=== PATIENT | male | born 1950 | race Caucasian/White ===

== ENCOUNTER → 2019-11-03 11:38 | Outpatient (BNVA) | payer MEDICARE, MEDICAID, SELFPAY | PROVIDERS: Family Provider Urology; PCP Nurse Practitioner Family; Referring Provider Nurse Practitioner Family; Visit Provider Nurse Practitioner Family | DX: R31.0 Gross hematuria (principal); R97.20 Elevated prostate specific antigen [PSA]; N40.1 Benign prostatic hyperplasia with lower urinary tract symptoms; N13.8 Other obstructive and reflux uropathy | CPT/HCPCS: 80053; 81001; 84153 ==

== ENCOUNTER 2019-11-09 08:56 | Outpatient (CLI) | payer MEDICARE, MEDICAID, SELFPAY ==
--- NOTE | 2019-11-09 | CT_ITS ---
WS: [id number] CT ABDOMEN AND PELVIS WITH AND WITHOUT CONTRAST HISTORY: GROSS HEMATURIA TECHNIQUE: Unenhanced 5 mm axial imaging first performed through the abdomen. Post contrast imaging t hrough the abdomen and pelvis. Oral contrast has been provided. Sagittal and coronal reformats are s ubmitted. All CT scans at [facility] use at least one of these dose optimization techniqu es: automated exposure control; mA and/or kV adjustment per patient size (includes targeted exams whe re dose is matched to clinical indication); or iterative reconstruction. CONTRAST: Omnipaque 300; 95 mL IV. DLP: 3573.58 mGy.cm COMPARISON: None available. Lung bases are clear. Heart size is normal. No significant hiatal hernia. Normal liver with no intrahepatic dilatation. Normal portal vein. Gallbladder has been removed. Magdalena l size spleen. Normal pancreas. No adrenal mass. Very mild atherosclerosis aorta with no aneurysm. RIGHT kidney: Normal size RIGHT kidney. No renal calcification or mass. RIGHT ureter is normal calibe r. LEFT kidney: Normal size kidney. Simple upper pole cyst measures 2.9 x 2.7 x 3.7 cm. Vascular calcifi cation noted in the central pelvis. No obstruction or perinephric stranding. LEFT ureter is normal. Urinary bladder: Well-distended urinary bladder. There is a mildly hypervascular lobulated mass in th e posterior superior bladder. Mass measures 4.4 x 3.0 x 3.4 cm. Hyperemic mass is just superior to th e RIGHT UV junction. No free fluid or adenopathy. No GI tract obstruction. The appendix is normal. No adenopathy in the pe lvis. Prostate gland is minimally prominent. No adenopathy. Straightening of the normal lumbar lordosis. Moderate degenerative disc disease at L5-S1. CT/CT abdomen pelvis wo/w [id number] IMPRESSION: 1. Urinary bladder mass measures 4.4 x 3.0 x 3.4 cm. 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 Recommend biopsy. 2. No renal stone or obstruction. 3. Prior cholecystectomy. 4. Mild atherosclerosis aorta.
[2019-11-09 10:46] LABS: Blood Urea Nitrogen 12 mg/dL (8-23)
[2019-11-09] MEDS: iohexol 300 mg/mL 100 mL Btl IV (11:03)
== END 2019-11-09 08:57 | disposition home or self-care (01) ==
LOC: RADWPI 09:02
PROVIDERS: Family Provider Urology; PCP Nurse Practitioner Family; Visit Provider Nurse Practitioner Family
DX: R31.0 Gross hematuria (principal); N40.1 Benign prostatic hyperplasia with lower urinary tract symptoms; I70.0 Atherosclerosis of aorta
CPT/HCPCS: 36415; 74178; 82565; 84520

== ENCOUNTER 2019-11-15 08:56 | Observation (INO) | payer MEDICARE, MEDICAID, SELFPAY ==
[2019-11-14 09:50] VITALS: BMI 28.5
[2019-11-15] VITALS (14 sets, daily range): BP systolic 108–159; BP diastolic 65–86; PULSE 53–96; RESP 12–18; TEMP 35.5–36.8; O2SAT 94–99
[2019-11-15] MEDS: sodium chloride 0.9% 1,000 ML 30 ML IV (06:37)
--- NOTE | 2019-11-15 06:40 | ANES.PREANE2 ---
Pre-Anesthetic Assessment Pre-Anesthetic Assessment: Height/Weight: Height 1.83 m Weight 95.254 kg Temp Pulse Resp BP Pulse Ox 97.3 F L 55 L 18 159/82 99 11/15/19 06:11 11/15/19 06:11 11/15/19 06:11 11/15/19 06:11 11/15/19 06:11 Preop Diagnosis: Newly diagnosed bladder cancer Proposed Procedure: Operation Date: 11/15/19 07:00 Proposed Procedures p Transurethral Resection Bladder Tumor 21075 C67.2(Not Applicable) - Kenji Yanez MD s Cystoscopy(Not Applicable) - Kenji Yanez MD Familial anesthetic complications: None Was Beta Yunior taken within 24 hours: N/A Last intake: Intake Last Liquid Date 11/14/19 Last Liquid Time 19:00 Last Solid Date 11/14/19 Last Solid Time 19:00 Social: Social History: Alcohol Packs per day: 1-2 beers daily Comment: former smoker Exam: Pre-Anes Outpt Exam: alert, oriented x 3, clear to auscultation bilaterally and regular rate & rhythm Airway: Cervical ROM: WNL MP: 3 Dentition: False Pulmonary: Pulmonary: None reported CV/HEM: CV/HEM: None reported : : None reported Hepatic: Hepatic: None reported GI: GI: GERD Metabolic: Metabolic: Hyperlipidemia Musc/skel: Musc/skel: Lower Back Pain Neuropsych: Neuropsych: Neuropathy (Legs (sciatica)) Anesthetic Plan: ASA status: 2 Anesthesia: General Risk of > 500 ml blood loss (7ml/kg in children): No Meds/Allergies Current Medications: Current Medications Generic Name Dose Route Start Last Admin Trade Name Freq PRN Reason Stop Dose Admin Sodium Chloride 1,000 mls @ 30 ml s/hr 11/15/19 06:15 11/15/19 06:37 Sodium Chloride 0.9% IV 11/16/19 06:14 30 mls/hr .Q24H RUBEN Administration PFSH Anesthesia PFSH: Social History Smoking and tobacco status: light tobacco smoker smokeless tobacco Alcohol intake: current Alcohol intake frequency: holidays/special occasions only Adopted: No Caregiver/support person: No Lives independently: No Marital status: Current occupational status: retired History of recent travel: No Current gender identity: Male Data Anesthesia Cardiac Studies: No Data to Display
[2019-11-15] MEDS: levofloxacin-dextrose 5 % 500 MG/100 ML PREMIX 100 MG IV (06:59)
--- NOTE | 2019-11-15 07:00 | W.PM.OPSUD ---
Surgery/Procedure H&P Update DATE OF PROCEDURE: November 15, 2019 DATE H&P PERFORMED: 11/09/19 H&P UPDATE INFORMATION: I have reviewed H&P completed within last 30 days, I have examined patient prior to procedure and No changes to prior documentation PREOP DIAGNOSIS: Newly diagnosed bladder cancer PLANNED PROCEDURE: Operation Date: 11/15/19 07:00 Proposed Procedures p Transurethral Resection Bladder Tumor 08644 C67.2(Not Applicable) - Kenji Yanez MD s Cystoscopy(Not Applicable) - Kenji Yanez MD
--- NOTE | 2019-11-15 07:01 | P.OP_ITS ---
Operative Report Date of procedure: November 15, 2019 Pre-op Diagnosis: Newly diagnosed bladder cancer Post-op diagnosis: same Procedure Done: Cystoscopy, transurethral section of bladder tumor large Pathology: Bladder tumor Surgeon: Beau Anesthesia: General Estimated blood loss: Minimal Urine output: Not measured Complications: Small false passage with Sofía sound passage. Bypassed with guidewire and scopes. Able to get a catheter and no difficulty afterwards. Expect complete resolution with indwelling catheter. Findings: Papillary lesion in expected position. Completely resected. Disposition: PACU Brief History: Mr. Martins is a very pleasant 68-year-old white male recently evaluated for gross hematuria with normal upper urinary tracts on CT scan and a papillary lesion in the bladder consistent with TCCA located on the right posterior lateral wall. Admitted now for TURBT. Preliminary assessment of the tumor appeared well differentiated and probably not invasive. Procedure: After routine preoperative evaluation examination and obtaining of informed consent he was taken to the operating suite on 11/15/2019 where general anesthesia was administered without difficulty after appropriate timeout was performed, SCDs confirmed to be functioning, preoperative antibiotics administered, beta-liz protocol confirmed. Prepped and draped in usual sterile fashion in dorsolithotomy position pain careful attention to avoiding pressure points. 21 Mozambican cystoscope with 30 degree lens was introduced into the urethra meatus and advanced into the bladder under videoscopy. The membranous urethra was slightly tight. Bladder was systematically examined with 30 and 70 degree lenses with findings as mentioned above and identified in clinic. Urethra was then attempted to be calibrated with Sofía sounds but the 22 Mozambican sound would not easily pass. The urethra was reinspected there was a small false passage in the bulbar urethra and and it was decided to forego further formal dilation and pass a wire over which the scopes could be used to dilate. The ureteroscope was used to follow the true lumen into the bladder a guidewire was placed and then sequentially 17, 22 and 25 Mozambican scopes were utilized for the equivalent dilation over the wire. A open ureteral catheter was advanced over the guidewire and then the 25 Mozambican continuous flow resectoscope sheath with visual obturator in place was the advanced next to the guidewire into the bladder. The gyrus bipolar system with super loop was utilized first for resection of the tumor down to the base and deep sampling was conducted as well. While the tumor was wide-based it did appear to be well differentiated papillary characteristic and not invasive. Button probe was utilized for fulguration of the base and meticulous hemostasis was obtained. The orifices which were identified well away from the base of the tumor at initial inspection were confirmed to be without involvement in the resected site. All chips were confirmed to be out of the bladder after removal with that he like evacuator and final inspection revealed meticulous hemostasis and no additional tumor sites. Prior to removal of the resectoscope a guidewire was passed through the sheath into the bladder and then a 22 Mozambican three-way Bentley catheter converted to a catawba tip catheter was passed over the guidewire easily into the bladder and the balloon inflated catheter confirmed to be functioning and then the wire removed. He was maintained on low-flow CBI with clear reflux. Tolerated procedure well without complications and was awakened in the operating room and returned to the operating room in stable condition. PLANS: Anticipate overnight stay with discharge tomorrow after intravesical mitomycin instillation and successful voiding trial.
[2019-11-15] MEDS: lidocaine 2% Urojet 20 mL TOPICAL (07:20)
--- NOTE | 2019-11-15 08:56 | SUR.PHASEI ---
0850 PATIENT TO PACU AT THIS TIME FROM OR. RR EVEN AND UNLABORED. AWAKE AND TALKING. [address] IN [address] WITH CBI. DENIES PAIN.
--- NOTE | 2019-11-15 09:22 | SUR.PHASEI ---
0912 PATIENT TO MED SURG AT THIS TIME. A/OX3. RR EVEN AND UNLABORED. DENIES PAIN. [address] WITH CBI, DRAINING CLEAR URINE. ON ARRIVAL TO MED SURG PATIENT AMBULATED WITH STEADY GAIT TO BED.
--- NOTE | 2019-11-15 10:33 | PC.NURSE ---
Patient to go home with indwelling cath. Dr. Rebollar will inject Mitomycin C tomorrow before discharge.
--- NOTE | 2019-11-15 11:11 | PC.RESP ---
Smoking Cessation and a schedule of pending classes mailed to patient.
[2019-11-15] MEDS: atorvastatin 40 mg Tablet 20 MG PO (11:30)
[2019-11-15] MEDS: pantoprazole DR 40 mg Tablet PO (11:31)
[2019-11-15] MEDS: gabapentin 300 mg Capsule 600 MG PO ×3 (11:31→20:53)
[2019-11-15] MEDS: trazodone 100 mg Tablet PO (11:31)
[2019-11-15] MEDS: tamsulosin 0.4 mg Capsule PO (11:32)
[2019-11-15] MEDS: HYDROcodone-acetaminophen 5-325 mg Tablet 1 TAB PO (17:23)
--- NOTE | 2019-11-15 17:27 | PC.NURSE ---
CBI- 1045 2000mls. pink clear 1135 1000mls pink clear 1213 1000mls pink clear 1330 1000mls pink clear 1730 1000mls pink clear
--- NOTE | 2019-11-15 18:18 | PC.NURSE ---
Patient sit up on side of bed, fernando well/ patient states pain is 1 after rec. hydrocodone. No clots noted in urine. Urine color pink. Appetite is good, tolerated regular diet.
[2019-11-15] MEDS: latanoprost 0.005% Op Soln 2.5 mL Btl 1 DROP EYE-BOTH (20:52)
[2019-11-16 00:51] VITALS: BP 111/68; PULSE 59; RESP 20; TEMP 36.7; O2SAT 95
[2019-11-16] MEDS: HYDROcodone-acetaminophen 5-325 mg Tablet 1 TAB PO (04:38)
[2019-11-16 08:00] VITALS: BP 125/77; PULSE 56; RESP 18; TEMP 36.7; O2SAT 96
--- NOTE | 2019-11-16 08:35 | P.DS_ITS ---
Discharge Providers Date of Admission: 11/15/19 08:56 Date of Discharge: November 16, 2019 Attending Provider at Admission: Kenji Yanez MD Attending Provider at Discharge: Kenji Yanez MD Primary Care Provider: FLORENCIA Larson Diagnoses at Discharge Discharge Diagnosis (1) Bladder cancer: Status: Acute Problem details: Large papillary tumor right posterior lateral bladder wall resected 11/15/2019. Qualifiers: Bladder location: lateral wall Qualified Code(s): C67.2 - Malignant neoplasm of lateral wall of bladder (2) BPH with obstruction/lower urinary tract symptoms: Status: Acute Reason for Visit Reason for Visit: Reason For Visit: Malignant neoplasm of lateral wall of bladder Hospital Course Discharge Summary: He was admitted on the day of the procedure for TURBT. The bladder tumor was a papillary lesion on the posterior lateral floor completely resected deeply into the bladder wall for sampling. He had a small false passage from passage of a Sofía sound which will respond to catheter assisted healing. Postoperatively mitomycin 40 mg was instilled into the bladder for 1 hour on postoperative day #1 and he tolerated it well. Was discharged on postoperative day #1 in stable condition. Bentley catheter was left indwelling for further healing of the urethra and bladder and it will be removed in my office on 11/20/2019. Physical Exam Narrative: EXAM NARRATIVE: Alert and oriented no acute distress Respiratory: Unlabored. No wheezing Abdomen: Soft nontender no palpable masses Genitourinary: Some bloody discharge around the catheter as expected. Neurologic: No confusion, no lateralizing weakness etc. Skin: No rashes jaundice or lesions No other gross pathology identified. Urinary Catheter Management^: 3-way Urethral CBI: Cath Placed During This Visit: yes Reason for Continuing Indwelling Catheter: Acute Urinary Retention or Obstruction Urinary Catheter Date of Insertion: 11/15/19 Urinary Catheter Time of Insertion: 08:30 Discharge Data Data Completed and Pending: Pending at discharge Category Date Time Status Pathology: Surgic al [PTH] Routine Pth 11/15/19 09:04 Received Vitals: Last Vital Signs Temp 98.1 F 11/16/19 08:00 Pulse 56 L 11/16/19 08:00 Resp 18 11/16/19 08:00 BP 125/77 11/16/19 08:00 Pulse Ox 96 11/16/19 08:00 Discharge Plan Discharge Patient Disposition: Home, Self-Care Condition: Stable Prescriptions: Continued gabapentin 600 mg tablet 600 mg PO TID RF: 0 tamsulosin [Flomax] 0.4 mg capsule 0.4 mg PO DAILY RF: 0 omeprazole 20 mg capsule,delayed release(DR/EC) 20 mg PO DAILY RF: 0 trazodone 100 mg tablet 100 mg PO DAILY RF: 0 lovastatin 20 mg tablet 20 mg PO DAILY RF: 0 latanoprost 0.005 % drops 1 drop ophthalmic (eye) BEDTIME RF: 0 Held meloxicam 15 mg tablet 15 mg PO DAILY RF: 0 Hold Instructions: Resume on 11/21/19. Discharge Orders: Discharge Order (Routine); Ordered 11/16/19 Ordered By: Kenji Yanez Referrals: Kenji Yanez MD [Family Provider] - 11/20/19 2:45 pm (Voiding trial) Discharge Diet: Usual diet Discharge Activity: Limit activity as instructed Activity Restrictions/Additional Instructions: 1. The catheter was left in your bladder to allow healing of the urethra and the bladder post surgery. We will take it out in my office for voiding trial on 11/20/2019. 2. It is a good idea to drink a lot of fluids to help flush the bladder and catheter. 3. You can use a leg or night bag as desired to drain the urine from the catheter. 4. Is important to not lift anything more than 10 pounds for the next 2 to 3 weeks. Discharge Attestations Time Spent in Discharge Care*: less than 30 min Status at Discharge: Cognitive status at discharge: cognitively intact , Behavioral status at discharge: cooperative , Functional status at discharge: independent ambulation Overall status at discharge: patient is back to baseline Quality Metrics Clinical Quality Measures During this hospital stay, did patient experience: None Coding Level of Care Code Acute Automatic Dispenser Mechanic for g Fwd Diagnoses Bladder cancer C67.2 Bladder location: lateral wall BPH with obstruction/lower urinary tract symptoms N40.1; N13.8
[2019-11-16 09:00] VITALS: BP 125/77; PULSE 56; RESP 18; TEMP 36.7; O2SAT 96
[2019-11-16] MEDS: gabapentin 300 mg Capsule 600 MG PO (09:29)
== END 2019-11-16 10:34 | disposition home or self-care (01) ==
LOC: MEDSURG 08:57
PROVIDERS: Admitting Provider Urology; Family Provider Urology; PCP Nurse Practitioner Family; Visit Provider Urology
PROC: 0TBB8ZZ Excision of Bladder, Via Natural or Artificial Opening Endoscopic (ICD-10-PCS; CPT 52240; principal; 2019-11-15 07:00)
PROC: 0TJB8ZZ Inspection of Bladder, Via Natural or Artificial Opening Endoscopic (ICD-10-PCS; CPT 52000; 2019-11-15 07:00)
DX: C67.2 Malignant neoplasm of lateral wall of bladder (principal); N40.1 Benign prostatic hyperplasia with lower urinary tract symptoms; N13.8 Other obstructive and reflux uropathy; K21.9 Gastro-esophageal reflux disease without esophagitis; E78.5 Hyperlipidemia, unspecified; Z87.891 Personal history of nicotine dependence
CPT/HCPCS: 52240; 12345; 88305; 96374; G0378; J1956; J2001; J2405; J2704; J2710; J3010; J3490; J7030; J9280

== ENCOUNTER → 2020-01-24 13:14 | Outpatient (BNVA) | payer MEDICARE, MEDICAID, SELFPAY | PROVIDERS: Family Provider Urology; PCP Nurse Practitioner Family; Visit Provider Urology | DX: C67.2 Malignant neoplasm of lateral wall of bladder (principal); N40.1 Benign prostatic hyperplasia with lower urinary tract symptoms; N13.8 Other obstructive and reflux uropathy; N99.89 Other postprocedural complications and disorders of genitourinary system; R33.8 Other retention of urine | CPT/HCPCS: 81001 ==

== ENCOUNTER → 2020-05-24 14:10 | Outpatient (BNVA) | payer MEDICARE, MEDICAID, SELFPAY | PROVIDERS: Family Provider Urology; PCP Nurse Practitioner Family; Visit Provider Urology | DX: C67.2 Malignant neoplasm of lateral wall of bladder (principal) | CPT/HCPCS: 87635 ==

== ENCOUNTER 2020-05-27 13:28 | Inpatient (IN) | payer MEDICARE, MEDICAID, SELFPAY ==
[2020-05-24 18:07] VITALS: BMI 29.8
[2020-05-27] VITALS (28 sets, daily range): BP systolic 107–146; BP diastolic 81–98; PULSE 69–144; RESP 11–29; TEMP 36.4–36.8; O2SAT 97–99
--- NOTE | 2020-05-27 11:21 | ECG_ITS ---
[facility] Test Date: 2020-05-27 Pat Name: Tomás Martins Department: Room: Gender: Male Court Liaison: : 1950 Requested By: Lizeth Lazaro Order Number: [id number] Richard MD: Lonny Irwin M.D. Measurements Intervals [place] Rate: 128 P: ID: -1 QRS: -18 QRSD: 111 T: -1 QT: 291 QTc: 425 Interpretive Statements AFIB/Flutter WITH RAPID VENTRICULAR RESPONSE INCOMPLETE RIGHT BUNDLE BRANCH BLOCK [90+ ms QRS DURATION, TERMINAL R IN V1/V2, 40+ ms S IN I/aVL/V4/V5/V6] MODERATE ST DEPRESSION [0.05+ mV ST DEPRESSION] No previous ECG available for comparison Electronically Signed On 05-27-2020 11:58:21 TEAM COORDINATOR by Lonny Irwin M.D. [id number]
--- NOTE | 2020-05-27 11:28 | ANES.PREANE2 ---
Pre-Anesthetic Assessment Pre-Anesthetic Assessment: Height/Weight: Height 1.83 m Weight 99.79 kg Temp Resp BP Pulse Ox 97.6 F 18 119/87 98 05/27/20 10:53 05/27/20 10:53 05/27/20 10:53 05/27/20 10:53 Preop Diagnosis: Recurrent bladder cancer Proposed Procedure: Operation Date: 05/27/20 12:00 Proposed Procedures p Transurethral Resection Bladder Tumor 46918 C67.9(Not Applicable) - Kenji Yanez MD s Cystoscopy(Not Applicable) - Kenji Yanez MD s Possible Retrograde Pyelogram(Not Applicable) - Kenji Yanez MD Familial anesthetic complications: None Was Beta Yunior taken within 24 hours: N/A Last intake: Intake Last Liquid Date 05/27/20 Last Liquid Time 07:00 Last Solid Date 05/26/20 Last Solid Time 17:30 Social: Social History: No alcohol and No tobacco Exam: Pre-Anes Outpt Exam: alert, oriented x 3, clear to auscultation bilaterally and regular rate & rhythm Additional Exam Findings (including area of procedure): tachycardia - getting EKG Airway: Cervical ROM: WNL MP: 3 Dentition: False CV/HEM: Comments: Denies any cardiac history and states he's able to walk up a couple flights of stairs without shortness of breath GI: GI: GERD Anesthetic Plan: ASA status: 2 Anesthesia: General Risk of > 500 ml blood loss (7ml/kg in children): No PFSH Anesthesia PFSH: Medical History Bladder cancer Large papillary tumor right posterior lateral bladder wall resected 11/15/2019. 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 Gross hematuria Personal history of skin cancer Surgical History H/O transurethral destruction of bladder lesion Hx of bilateral cataract extraction Hx of cholecystectomy Hx of hand surgery Family History Mother , AT AGE 100 LUNG CANCER Cancer Father , AT AGE 82 COLON CANCER Cancer Social History Smoking and tobacco status: light tobacco smoker smokeless tobacco Alcohol intake: current Alcohol intake frequency: holidays/special occasions only Adopted: No Caregiver/support person: No Lives independently: No Marital status: Current occupational status: retired History of recent travel: No Current gender identity: Male Data Anesthesia Cardiac Studies: No Data to Display
[2020-05-27] MEDS: sodium chloride 0.9% 1,000 ML 30 ML IV (11:38)
[2020-05-27] MEDS: metoprolol tartrate 1 mg/1 mL SDV 5 mL 5 MG IV (11:48)
--- NOTE | 2020-05-27 11:53 | SUR.OPER ---
heart rate noted. pt denies chest pain or dyspnea. Christine informed.EKG ordered and performed. Christine at bedside.
--- NOTE | 2020-05-27 11:55 | SUR.OPER ---
Ursula into evaluate pt. plan of care reviewed with pt.
--- NOTE | 2020-05-27 12:57 | USCV_ITS ---
Tomás Martins Age: 69 Gender: M : 1950 Exam Date: 05/27/2020 15:39 Ordering Phys: Lonny Irwin MD ([email or web address]) Technologist: Daiana Mendez Exam Location: [facility] [place] Indication: NEW ONSET AFIB BP: 130 / 92 HR: 105 Rhythm: Sinus Technical Quality: Adequate MEASUREMENTS (Male / Female) Normal Values 2D ECHO LV Diastolic Diameter PLAX 3.4 cm 4.2 - 5.9 / 3.9 - 5.3 cm LV Systolic Diameter PLAX 2.7 cm LV Chamber Size 3.7 cm IVS Diastolic Thickness 1.0 cm 0.6 - 1.0 / 0.6 - 0.9 cm IVS Systolic Thickness 1.4 cm LVPW Diastolic Thickness 2.0 cm 0.6 - 1.0 / 0.6 - 0.9 cm LVPW Systolic Thickness 1.6 cm RV Chamber Size 3.2 cm LVOT Diameter 2.1 cm LV Ejection Fraction 2D Teich 46.7 % LV Ejection Fraction MOD 2C 50.7 % LV Ejection Fraction 2C AL 49.5 % LA Diameter 3.4 cm LA Width 3.0 cm LA Height 4.1 cm RA Width 3.8 cm RA Height 3.9 cm Aorta at Sinotubular Diameter 3.1 cm M-MODE LV Diastolic Diameter MM 3.9 cm 4.2 - 5.9 / 3.9 - 5.3 cm LV Systolic Diameter MM 2.8 cm LV Ejection Fraction MM Teich 57.0 % IVS Diastolic Thickness MM 1.0 cm 0.6 - 1.0 / 0.6 - 0.9 cm IVS Systolic Thickness MM 1.1 cm LVPW Diastolic Thickness MM 0.8 cm 0.6 - 1.0 / 0.6 - 0.9 cm LVPW Systolic Thickness MM 1.7 cm Aortic Annulus Diameter 3.9 cm LA Ao Ratio MM 0.9 MV E Point Septal Separation 1.7 cm DOPPLER AV Peak Velocity 109.0 cm/s LVOT Peak Velocity 87.0 cm/s AV Area Cont Eq vti 2.3 cm squared AV Area Cont Eq pk 2.7 cm squared MV Area PHT 3.7 cm squared Mitral E to A Ratio 111.1 MV E' Velocity 43.5 cm/s Mitral E to MV E' Ratio 6.9 Mitral E to LV E' Lateral Ratio 8.8 Mitral E to LV E' Septal Ratio 5.6 TR Peak Velocity 216.0 cm/s TR Peak Gradient 18.7 mmHg TV Peak E Velocity 65.0 cm/s Right Atrial Pressure 3.0 mmHg Pulmonary Artery Systolic Pressu 21.7 mmHg PV Peak Velocity 71.0 cm/s RV Acceleration Time 0.2 s RV Ejection Time 0.3 s RV AcT/ET 0.5 FINDINGS Left Ventricle Mild diffuse hypokinesia left ventricle ejection fraction of around 50%. Because of the arrhythmia, ejection fraction estimation is difficult. Right Ventricle Possibly of normal size and ejection fraction . Right Atrium Appears to be upper limit of normal size . Left Atrium Upper limit of normal size Mitral Valve Mild mitral valve regurgitation. Aortic Valve No gross abnormalities noted . Tricuspid Valve No gross abnormalities noted.trace tricuspid valve regurgitation. Pulmonic Valve Pulmonic valve not well visualized. Pericardium No pericardial effusion. Aorta Normal aortic annulus size. CONCLUSIONS Mild diffuse hypokinesia left ventricle ejection fraction of around 50%. Both atria, upper limit of normal size. Mild mitral valve regurgitation. Estimated pulmonary artery peak systolic pressure 22 mmHg There are no intracardiac masses. There is no pericardial effusion. No previous study is available for comparison. Dr Lonny Irwin MD FACC (Electronically Signed) Final Date: 27 May 2020 17:46 S
--- NOTE | 2020-05-27 13:00 | PM.CONSULT ---
Providers/Reason For Consult Consulting Physican/Specialty*: Christiano Irwin MD/cardiology Reason for Consult*: Patient with a new onset of atrial fibrillation with rapid ventricular rate. Preoperative status Attending Physician: Kenji Yanez MD Primary Care Provider: FLORENCIA Larson History of Present Illness History of Present Illness Tomás Martins is a 69 year old male with a history of dyslipidemia and remote history of smoking abuse was at the outpatient department today for elective cystoscopy and transurethral resection of the bladder cancer. He was found to be tachycardic at the preop area. Subsequent EKG showed atrial flutter/fibrillation with rapid ventricular rate in the 150s. He was given 5 mg of IV metoprolol. The heart rate came down to the 120s. Cardiology consult is requested for further cardiac evaluation recommendations. Patient has no previous history for any cardiac illness. No history for cardiac arrhythmia. No history for high blood pressure, coronary artery disease, CVA or diabetes. He is known to have dyslipidemia. He has a 30 pack year history of smoking which he quit 10 years ago. No alcohol abuse or any other substance abuse. He was diagnosed with bladder cancer in September of this year. He underwent transurethral resection of the tumor in October. His surveillance cystoscopy revealed recurrence of the tumor for which he is scheduled for repeat resection. He has a longstanding history of bladder outlet obstruction requiring catheter placement. He denies any chest pain or palpitation at this time. No unusual shortness of breath. No dizziness or syncopal episodes. Has no significant family history for premature atherosclerotic heart disease. No significant family history for any cardiac arrhythmia or permanent pacemaker implantation. Review of Systems Narrative: CONSTITUTIONAL: No fever or chills. EYES: No blurring of vision or other visual disturbances lately. ENT: No hoarseness of voice, auditory disturbances or sore throat. CARDIOVASCULAR: As mentioned above. RESPIRATORY: No significant cough. GASTROINTESTINAL: No hematemesis or melena. GENITOURINARY: As mentioned above. Has history of hematuria INTEGUMENTARY: No skin rashes or history of skin cancer. NEURO: No transient ischemic attacks or amaurosis. PSYCHIATRIC: No history of psychosis or major depression. HEMATOLOGIC: No bleeding disorders or significant anemia. ENDOCRINE: No history of polyuria or polydipsia. MUSCULOSKELETAL: No recent joint pain or swelling. ALLERGY/IMMUNOLOGY: As mentioned above. Meds/Allergies Home Medications and Allergies Home Medications Medication Instructions Recorded Confirmed Last Taken Type gabapentin 600 mg tablet 600 mg PO TID 11/03/19 05/24/20 05/26/20 History latanoprost 0.005 % eye drops 1 drop OPHTHALMIC (EYE) BEDTIME 11/03/19 05/27/20 05/26/20 History lovastatin 20 mg tablet 20 mg PO DAILY 11/03/19 05/27/20 05/26/20 History meloxicam 15 mg tablet 15 mg PO DAILY 11/03/19 05/24/20 05/24/20 History omeprazole 20 mg capsule,delayed 20 mg PO DAILY 11/03/19 05/27/20 05/26/20 History release tamsulosin 0.4 mg capsule 0.4 mg PO DAILY 11/03/19 05/24/20 05/26/20 18:00 History trazodone 100 mg tablet 100 mg PO DAILY 11/03/19 05/27/20 05/26/20 18:00 History Allergies Allergy/AdvReac Type Severity Reaction Status Date / Time No Known Allergies Allergy Verified 05/24/20 18:00 Current Medications Current Medications Generic Name Dose Route Start Last Admin Trade Name Freq PRN Reason Stop Dose Admin Sodium Chloride 1,000 mls @ 30 mls/hr 05/27/20 10:45 05/27/20 11:38 Sodium Chloride 0.9% IV 05/28/20 10:44 30 mls/hr .Q24H RUBEN Administration Metoprolol Tartrate 5 mg 05/27/20 11:35 05/27/20 11:48 Metoprolol Tartrate IV 5 mg PRN PRN Administration HEART RATE-HIGH PFSH Acute PFSH: Medical History Bladder cancer Large papillary tumor right posterior lateral bladder wall resected 11/15/2019. 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 Elevated blood pressure reading Gross hematuria Personal history of skin cancer Surgical History H/O transurethral destruction of bladder lesion Hx of bilateral cataract extraction Hx of cholecystectomy Hx of hand surgery Family History Mother , AT AGE 100 LUNG CANCER Cancer Father , AT AGE 82 COLON CANCER Cancer Social History Smoking and tobacco status: light tobacco smoker smokeless tobacco Alcohol intake: current Alcohol intake frequency: holidays/special occasions only Adopted: No Caregiver/support person: No Lives independently: No Marital status: Current occupational status: retired History of recent travel: No Current gender identity: Male Vitals/I&O/Wt Last Vital Signs Temp 97.6 F 05/27/20 10:53 Pulse 122 H 05/27/20 12:20 Resp 16 05/27/20 12:20 BP 111/86 05/27/20 12:20 Pulse Ox 98 05/27/20 12:20 Physical Exam Narrative: EXAM NARRATIVE: GENERAL: The patient is alert and oriented times three. Not in any acute distress. HEENT: No significant pallor, icterus or lymphadenopathy. The pupils are reactant to light. Oral cavity: There are no mucous membrane lesions. Funduscopic examination: The fundus is not visualized NECK: Trachea appears to be central. No masses noted. No JVD or thyromegaly appreciated. No carotid bruit. RESPIRATORY: Chest is symmetrical. No intercostals muscle retraction or any accessory muscle activation. There is no chest wall tenderness. Breath sounds are heard bilaterally. No rales or rhonchi heard. No evidence of any consolidation. BREASTS: Deferred. HEART: The PMI could not be palpated. No other palpable precordial events. First heart sound is variable second heart sound is normal. No S3. No significant murmurs appreciated. No pericardial rub or any click. ABDOMEN: No vessel pulsations or distention. No tenderness. No organomegaly appreciated. No abdominal bruit. Bowel sounds are normally heard. : Deferred. RECTAL: Deferred. LYMPHATIC: No lymphadenopathy noted in the neck or groin. EXTREMITIES:_Edema both lower extremities. No cyanosis. Peripheral pulses are palpable in fairly good volume and amplitude MUSCULOSKELETAL: No acute joint deformities or swelling SKIN: There are no significant scars or skin rash noted. NEUROPSYCHIATRIC: The patient is alert and oriented x3. Appears to be in a good mood. The higher functions are grossly within normal limits. No tremors or rigidity noted. A&P Assessment and plan (1) New onset atrial fibrillation: The etiology of the atrial fibrillation is not clear at this time. Possibility of him having underlying structural heart disease/coronary ischemia are considerations. For further evaluation, an echocardiogram would be helpful. Patient was given a total of 10 mg of IV metoprolol. I may start him on esmolol drip, if the blood pressure tolerates. We will do some basic labs including CBC, CMP, INR, TSH. Also will try to rule out myocardial infarction by serial enzymes and EKGs. I also may start him on IV heparin, if there is no contraindication, after reviewing the labs Status: Acute (2) Elevated blood pressure reading: The blood pressure was in the 140s but currently it is in the 110s . I will hold off any medications at this time. Status: Acute (3) Bladder cancer: As per Dr. Yanez Status: Acute Qualifiers: Bladder location: lateral wall Qualified Code(s): C67.2 - Malignant neoplasm of lateral wall of bladder Additional A&P Information Based on the patient's clinical progress and the results of the above, further recommendations will be made. Thank you for the opportunity to evaluate this patient make these recommendations Coding Level of Care Code Acute Chief Of Safety And Protection for Vikram Fwjose History Comprehensive Exam Comprehensive Medical Decision Making Moderate Complexity Diagnoses New onset atrial fibrillation I48.91 Elevated blood pressure reading R03.0 Bladder cancer C67.2 Bladder location: lateral wall Time Spent (min) 55
--- NOTE | 2020-05-27 13:27 | SUR.OPER ---
pt evaluated by Dr Irwin. pt to be admitted by rony GILL. report called to Casandra JUNE in [facility]. Pt's family informed per pt request. Pt transfered to [facility] room 102 in stable condition.
--- NOTE | 2020-05-27 14:30 | PM.MISC ---
Miscellaneous Note Purpose of Documentation: Change of status Note: Patient was scheduled for TURBT today to be admitted through outpatient surgery and observation status. Upon preoperative assessment he was found to have a heart rate of greater than 140 and cardiology was consulted. The patient was asymptomatic but it was felt to be too significant of a risk to proceed with surgery and for that reason surgery was canceled and he was admitted for further cardiology work-up and treatment. The patient is tentatively rescheduled for tomorrow at the earliest around noon but it can be postponed according to how the remainder of his cardiac work-up progresses.
--- NOTE | 2020-05-27 14:59 | ECG_ITS ---
[facility] Test Date: 2020-05-27 Pat Name: Tomás Martins Department: Room: 102 Gender: Male Ore Tester: : 1950 Requested By: Lonny Irwin Order Number: [id number] Reading MD: TRUE CASAS Measurements Intervals [place] Rate: 96 P: WI: -1 QRS: -38 QRSD: 134 T: -15 QT: 354 QTc: 449 Interpretive Statements ATRIAL FLUTTER/TACHYCARDIA MARKED LEFT AXIS DEVIATION [QRS AXIS < -30] RIGHT BUNDLE BRANCH BLOCK [120+ ms QRS DURATION, UPRIGHT V1, 40+ ms S IN I/aVL/V4/V5/V6] Compared to ECG 05/27/2020 11:28:32 Left-axis deviation now present Right bundle-branch block now present Atrial fibrillation no longer present Incomplete right bundle-branch block no longer present ST (T wave) deviation no longer present Electronically Signed On 05-27-2020 20:15:54 SOFTWARE PROJECT LEAD by TRUE CASAS [email or web address]
[2020-05-27] MEDS: gabapentin 300 mg Capsule 600 MG PO ×2 (15:48→21:04)
--- NOTE | 2020-05-27 15:54 | PC.NURSE ---
[address] ashley with concern of patients heart rate is 130-140 instructions to start cardzem drip at 10mg and normal saline at 125ml/hr
[2020-05-27 16:31] LABS: Basophils % 0.2 %; Eosinophils # 0.1 10^3/uL (0.0-0.8); Eosinophils % 2.7 %; Hemoglobin 14.2 g/dL (11.7-16.6); Lymphocytes # 0.9 10^3/uL (0.8-4.8); Lymphocytes % 20.4 %; Mean Corpuscular Hemoglobin 30.9 pg (28.0-34.0); Mean Corpuscular Volume 93.5 fL (80-94); Mean Platelet Volume 10.3 fL (7.4-10.4); Monocytes # 0.3 10^3/uL (0.2-0.9); Monocytes % 7.6 %; Neutrophils # 3.06 10^3/uL (1.8-7.7); Neutrophils % 68.7 %; Nucleated Red Blood Cells % 0 %; Platelet Count 156 10^3/cmm (130-400); Red Cell Distribution Width 12.7 % (12.1-15.1); White Blood Count 4.5 10^3/uL (4.0-10.0)
[2020-05-27] MEDS: sotalol 80 mg Tablet PO (17:10)
[2020-05-27 17:24] LABS: Troponin T (5th) Once 9 ng/L (0-15)
[2020-05-27 17:30] LABS: Alanine Aminotransferase 17 U/L (0-41); Albumin Level 4.1 g/dL (3.5-5.2); Alkaline Phosphatase 69 IU/L (40-130); Anion Gap 10.9 (5-19); Aspartate Amino Transferase 12 U/L (0-40); Blood Urea Nitrogen 13 mg/dL (8-23); Calcium 8.7 mg/dL (8.5-10.5); Carbon Dioxide 28 mmol/L (22-29); Chloride 103 mmol/L (98-107); Globulin 2.1 g/dL (1.3-4.6); Glomerular Filtration Rate 59.9 mL/min (90-130); Glucose 97 mg/dL (65-115); Osmolality Calculated 286 mOsm/kg (285-295); Potassium 3.9 mmol/L (3.5-5.1); Sodium 138 mmol/L (136-145); Thyroid Stimulating Hormone 2.86 uIU/mL (0.27-4.20); Total Protein 6.2 g/dL (6.6-8.7)
[2020-05-27] MEDS: sodium chloride 0.9% 1,000 ML 125 ML IV (17:55)
[2020-05-27 18:37] LABS: Platelet Count 154 10^3/cmm (130-400)
[2020-05-27] MEDS: heparin drip 25,000 UNIT/500 ML PREMIX 28 UNIT IV (18:42)
[2020-05-27 18:44] LABS: Troponin 5 2HR 8.55 ng/L (0-15)
[2020-05-27 20:25] LABS: INR 1.03 (0.8-1.2)
[2020-05-27] MEDS: latanoprost 0.005% Op Soln 2.5 mL Btl 1 DROP EYE-BOTH (21:05)
[2020-05-27] MEDS: lanolin oint 7 gm 1 APPLIC TOPICAL (21:05)
--- NOTE | 2020-05-27 21:28 | PC.NURSE ---
Patient has no complaints at this time. Will monitor.
[2020-05-27 22:56] LABS: Troponin 5 6HR 9.22 ng/L (0-15)
[2020-05-28] VITALS (8 sets, daily range): BP systolic 95–127; BP diastolic 56–90; PULSE 60–86; RESP 16–24; TEMP 36.4–36.8; O2SAT 96–99
[2020-05-28 01:40] LABS: Partial Thromboplastin Time 68.6 SECONDS (23.9-36.7)
[2020-05-28] MEDS: sodium chloride 0.9% 1,000 ML 125 ML IV ×2 (01:52→09:33)
--- NOTE | 2020-05-28 04:28 | PC.NURSE ---
Patient has no complaints at this time. Will monitor.
--- NOTE | 2020-05-28 07:21 | PC.NURSE ---
Dr Irwin rounding on patient discussion for NGOC with possible cardio version
--- NOTE | 2020-05-28 07:30 | P.PN_ITS ---
Subjective Subjective: Interval history: Patient continues to be in atrial flutter with 3-1 block. Denies any chest pain. Myocardial infarction was ruled out. Medications: Reviewed: Yes Medication Review Details: Current Medications Atorvastatin Calcium (Lipitor) 20 mg PO DAILY [facility] Gabapentin (Neurontin) 600 mg PO TID [facility] Last Admin: 05/27/20 21:04 Dose: 600 mg Documented by: Heparin Sodium (Beef Lung) (Heparin) 0 unit IV PRN PRN; Protocol PRN Reason: Heparin weight-base protocol Sodium Chloride (Sodium Chloride 0.9%) 1,000 mls @ 125 mls/hr IV .Q8H [facility] Last Admin: 05/28/20 01:52 Dose: 125 mls/hr Documented by: Diltiazem HCl 125 mg/ Sodium (Chloride) 125 mls @ 0 mls/hr IV .Q0M [facility]; Protocol Last Titration: 05/27/20 20:00 Dose: 0 mg/hr, 0 mls/hr Documented by: Heparin Sodium/Sodium Chloride (Heparin Drip) 25,000 unit in 500 mls @ 0 mls/hr IV .Q0M [facility]; Protocol Last Admin: 05/27/20 18:42 Dose: 14.03 unit/kg/hr, 28 mls/hr Documented by: Lanolin (Lanolin Oint) 1 applic TOPICAL PRN PRN PRN Reason: DRYNESS Last Admin: 05/27/20 21:05 Dose: 1 applic Documented by: Latanoprost (Xalatan) 1 drop EYE-BOTH BEDTIME [facility] Last Admin: 05/27/20 21:05 Dose: 1 drop Documented by: Pantoprazole Sodium (Protonix) 40 mg PO DAILY [facility] Sotalol HCl (Betapace) 80 mg PO BID@0900,2100 [facility] Last Admin: 05/27/20 17:10 Dose: 80 mg Documented by: Tamsulosin HCl (Flomax) 0.4 mg PO DAILY [facility] Trazodone HCl (Desyrel) 100 mg PO DAILY [facility] Vitals/I&O/Wt Last Vital Signs Temp 98.3 F 05/28/20 04:00 Pulse 70 05/28/20 04:00 Resp 19 H 05/28/20 04:00 BP 127/90 05/28/20 04:00 Pulse Ox 97 05/28/20 04:00 11/09/1405/28/20 05/28/20 22:59 06:59 14:59 Intake Total 287.333 / 772.649 0931.75 / 1431.083 Output Total 750 / 1000 900 / 1900 Balance -462.667 / -712.667 243.75 / -468.917 Physical Exam Narrative: EXAM NARRATIVE: GENERAL: The patient is alert and oriented times three. Not in any acute distress. HEENT: No significant pallor, icterus or lymphadenopathy. The pupils are reactant to light. Oral cavity: There are no mucous membrane lesions. Funduscopic examination: The fundus is not visualized NECK: Trachea appears to be central. No masses noted. No JVD or thyromegaly appreciated. No carotid bruit. RESPIRATORY: Chest is symmetrical. No intercostals muscle retraction or any accessory muscle activation. There is no chest wall tenderness. Breath sounds are heard bilaterally. No rales or rhonchi heard. No evidence of any consolidation. BREASTS: Deferred. HEART: The PMI could not be palpated. No other palpable precordial events. First heart sound is variable second heart sound is normal. No S3. No significant murmurs appreciated. No pericardial rub or any click. ABDOMEN: No vessel pulsations or distention. No tenderness. No organomegaly appreciated. No abdominal bruit. Bowel sounds are normally heard. : Deferred. RECTAL: Deferred. LYMPHATIC: No lymphadenopathy noted in the neck or groin. EXTREMITIES:_Edema both lower extremities. No cyanosis. Peripheral pulses are palpable in fairly good volume and amplitude MUSCULOSKELETAL: No acute joint deformities or swelling SKIN: There are no significant scars or skin rash noted. NEUROPSYCHIATRIC: The patient is alert and oriented x3. Appears to be in a good mood. The higher functions are grossly within normal limits. No tremors or rigidity noted. Urinary Catheter Management^: Bentley: Cath Placed During This Visit: no Reason for Continuing Indwelling Catheter: Acute Urinary Retention or Obstruction Data : 05/27/20 18:20 05/27/20 16:21 A&P Assessment and plan (1) New onset atrial fibrillation: The myocardial infarction is ruled out. Patient continues to be in atrial flutter. He was given Betapace last night. At this point, it is unclear as to how long he has been in atrial flutter. Because it is an unstable rhythm, in view of the pending surgery, it would be appropriate to go ahead with an electrical cardioversion. We may do a NGOC, prior to the cardioversion. Based on the results, further management decisions will be made. Status: Acute (2) Elevated blood pressure reading: The blood pressure seems to be under control. May continue on the current medications. Status: Acute (3) Bladder cancer: As per Dr. Yanez Status: Acute Qualifiers: Bladder location: lateral wall Qualified Code(s): C67.2 - Malignant neoplasm of lateral wall of bladder (4) Renal insufficiency: Renal function appears to be stable. Status: Acute Additional A&P Information Discussed with the patient about the risk and benefits of cardioversion. He understood this well. I may go ahead and make arrangements to have the cardioversion done as early as possible. 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
--- NOTE | 2020-05-28 08:11 | PC.NURSE ---
Dr Yanez at bedside for assessment and discussion of plan of care
--- NOTE | 2020-05-28 08:15 | USCV_ITS ---
Tomás Martins Age: 69 Gender: M : 1950 Exam Date: 05/28/2020 08:49 Ordering Phys: Lonny Irwin MD ([email or web address]) Technologist: Tony Crain Exam Location: [facility] [place] Indication: A-FLUTTER BP: / HR: Rhythm: Sinus Technical Quality: MEASUREMENTS (Male / Female) Normal Values Medications Patient given IV sedation by anesthesia service, for details please refer to the anesthesia report. Complications None. Proc. Components NGOC was performed at multiple levels. FINDINGS Left Ventricle Appears to have mild diffuse hypokinesia Right Ventricle Patient be of normal size with no intracardiac masses. Right Atrium Mildly increased right atrial size. Prominent eustachian valve was noted. Left Atrium Mildly increased left atrial size. No intracavitary masses or thrombi LA Appendage Of normal size with diminished contractility. No masses or thrombi IA Septum Interatrial septum appears to be intact with no evidence of any ASD or patent foramen ovale, based on the color flow Doppler examination or by saline contrast injection Mitral Valve Mild mitral valve regurgitation. Aortic Valve Appears to be tricuspid with no masses or vegetations Tricuspid Valve Trace to mild tricuspid regurgitation Pulmonic Valve Trace pulmonary valve regurgitation. Pericardium No pericardial effusion. Aorta Normal size aortic root and proximal ascending aorta. Intimal thickening in the aorta with no unstable plaques CONCLUSIONS 1. No intracardiac masses or thrombi. 2. Left atrial appendage was of normal size with diminished contractility. 3. Mild biatrial enlargement. 4. Mild diffuse hypokinesia of left ventricle with ejection fraction of around 50%. 5. Mild mitral regurgitation with trace to mild tricuspid and trace of pulmonic regurgitation 6. No intracardiac shunts by color flow Doppler examination or by saline contrast injection. 7. No unstable plaques or lesions in the ascending aorta. Dr Lonny Irwin MD FAC (Electronically Signed) Final Date: 28 May 2020 17:54 S
[2020-05-28 08:24] LABS: Partial Thromboplastin Time 139.1 SECONDS (23.9-36.7)
--- NOTE | 2020-05-28 08:29 | P.ANESASSM_ITS ---
Pre-Anesthetic Assessment Pre-Anesthetic Assessment: Height/Weight: Height 1.83 m Weight 99.79 kg Temp Pulse Resp BP Pulse Ox 98.3 F 70 19 H 127/90 97 05/28/20 04:00 05/28/20 04:00 05/28/20 04:00 05/28/20 04:00 05/28/20 04:00 Preop Diagnosis: Recurrent bladder cancer/ NGOC cardioversion Proposed Procedure: Operation Date: 05/27/20 12:00 Proposed Procedures p Transurethral Resection Bladder Tumor 15585 C67.9(Not Applicable) - Kenji Yanez MD s Cystoscopy(Not Applicable) - Kenji Yanez MD s Possible Retrograde Pyelogram(Not Applicable) - Kenji Yanez MD Operation Date: 05/28/20 11:45 Proposed Procedures p Transurethral Resection Bladder Tumor(Not Applicable) - Kenji Yanez MD s Cystoscopy(Not Applicable) - Kenji Yanez MD Was Beta Yunior taken within 24 hours: Yes Last intake: Intake Last Liquid Date 05/27/20 Last Liquid Time 07:00 Last Solid Date 05/26/20 Last Solid Time 17:30 Last Intake: 22:00 Social: Social History: No alcohol and No tobacco Exam: Pre-Anes Outpt Exam: alert, oriented x 3, clear to auscultation bilaterally and regular rate & rhythm (irreg) Airway: Submandibular: WNL Cervical ROM: WNL MP: 2 Dentition: False Pulmonary: Pulmonary: None reported CV/HEM: CV/HEM: Afib (seen Dr ashley with neg [place] workup), CAD and HTN : : Chronic renal Insufficiency Comments: bladder tumor Hepatic: Hepatic: None reported GI: GI: GERD (controlled) Metabolic: Metabolic: None reported Musc/skel: Musc/skel: Lower Back Pain and OA/DJD Neuropsych: Neuropsych: None reported Anesthetic Plan: ASA status: 3 Anesthesia: MAC Risk of > 500 ml blood loss (7ml/kg in children): No Meds/Allergies Current Medications: Current Medications Generic Name Dose Route Start Last Admin Trade Name Freq PRN Reason Stop Dose Admin Gabapentin 600 mg 05/27/20 15:00 05/27/20 21:04 Neurontin PO 600 mg TID RUBEN Administration Sodium Chloride 1,000 mls @ 125 m ls/hr 05/27/20 14:30 05/28/20 01:52 Sodium Chloride 0.9% IV 125 mls/hr .Q8H RUBEN Administration Diltiazem HCl 125 mg/ Sodium 125 mls @ 0 mls/h r 05/27/20 14:30 05/27/20 20:00 Chloride IV 0 mg/hr .Q0M RUBEN 0 mls/hr Titration Protocol Per Protocol Heparin Sodium/Sod ium Chloride 25,000 unit in 50 0 mls @ 0 mls/hr 05/27/20 18:15 05/27/20 18:42 Heparin Drip IV 14.03 unit/kg/hr .Q0M RUBEN 28 mls/hr Administration Protocol Per Protocol Lanolin 1 applic 05/27/20 19:30 05/27/20 21:05 Lanolin Oint TOPICAL 1 applic PRN PRN Administration DRYNESS Latanoprost 1 drop 05/27/20 21:00 05/27/20 21:05 Xalatan EYE-BOTH 1 drop BEDTIME RUBEN Administration Sotalol HCl 80 mg 05/27/20 17:10 05/27/20 17:10 Betapace PO 80 mg BID@0900,2100 RUBEN Administration PFSH Anesthesia PFSH: Medical History (Updated 05/28/20 @ 07:32 by Lonny Ashley MD) Bladder cancer Large papillary tumor right posterior lateral bladder wall resected 11/15/2019. 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 Elevated blood pressure reading Gross hematuria Personal history of skin cancer Renal insufficiency Surgical History H/O transurethral destruction of bladder lesion Hx of bilateral cataract extraction Hx of cholecystectomy Hx of hand surgery Family History Mother , AT AGE 100 LUNG CANCER Cancer Father , AT AGE 82 COLON CANCER Cancer Social History Smoking and tobacco status: light tobacco smoker smokeless tobacco Alcohol intake: current Alcohol intake frequency: holidays/special occasions only Adopted: No Caregiver/support person: No Lives independently: No Marital status: Current occupational status: retired History of recent travel: No Current gender identity: Male Data Anesthesia CBC & Chem 7: 05/27/20 18:20 05/27/20 16:21 Other Labs: Laboratory Results - last 48 hr 05/27/20 05/27/20 05/27/20 16:21 16:21 16:21 WBC 4.5 RBC 4.60 Hgb 14.2 Hct 43.0 MCV 93.5 MCH 30.9 MCHC 33.0 RDW 12.7 Plt Count 156 MPV 10.3 Neut % (Auto) 68.7 Lymph % (Auto) 20.4 [place] % (Auto) 7.6 Eos % (Auto) 2.7 Baso % (Auto) 0.2 Neut # (Auto) 3.06 Lymph # (Auto) 0.9 [place] # (Auto) 0.3 Eos # (Auto) 0.1 Baso # (Auto) 0.0 Nucleated RBC % (auto) 0 Nucleated RBCs # 0.0 PT INR APTT Sodium 138 Potassium 3.9 Chloride 103 Carbon Dioxide 28 Anion Gap 10.9 BUN 13 Creatinine 1.2 GFR Calculation 59.9 L Glucose 97 Calculated Osmolality 286 Calcium 8.7 Total Bilirubin 1.0 AST 12 ALT 17 Alkaline Phosphatase 69 Troponin T Gen 5 ng/L 9 Troponin T 120 Minute Delta Troponin T Troponin T Hi Sens 6Hr Troponin T Hi Sens 6Hr Delta Total Protein 6.2 L Albumin 4.1 Globulin 2.1 TSH 2.86 05/27/20 05/27/20 05/27/20 16:21 18:07 18:20 WBC RBC Hgb Hct MCV MCH MCHC RDW Plt Count 154 MPV Neut % (Auto) Lymph % (Auto) [place] % (Auto) Eos % (Auto) Baso % (Auto) Neut # (Auto) Lymph # (Auto) [place] # (Auto) Eos # (Auto) Baso # (Auto) Nucleated RBC % (auto) Nucleated RBCs # PT 13.80 INR 1.03 APTT Sodium Potassium Chloride Carbon Dioxide Anion Gap BUN Creatinine GFR Calculation Glucose Calculated Osmolality Calcium Total Bilirubin AST ALT Alkaline Phosphatase Troponin T Gen 5 ng/L Troponin T 120 Minute 8.55 Delta Troponin T Not Reportable Troponin T Hi Sens 6Hr Troponin T Hi Sens 6Hr Delta Total Protein Albumin Globulin TSH 05/27/20 05/27/20 05/28/20 18:20 22:10 01:05 WBC RBC Hgb Hct MCV MCH MCHC RDW Plt Count MPV Neut % (Auto) Lymph % (Auto) [place] % (Auto) Eos % (Auto) Baso % (Auto) Neut # (Auto) Lymph # (Auto) [place] # (Auto) Eos # (Auto) Baso # (Auto) Nucleated RBC % (auto) Nucleated RBCs # PT INR APTT 29.0 68.6 H D Sodium Potassium Chloride Carbon Dioxide Anion Gap BUN Creatinine GFR Calculation Glucose Calculated Osmolality Calcium Total Bilirubin AST ALT Alkaline Phosphatase Troponin T Gen 5 ng/L Troponin T 120 Minute Delta Troponin T Troponin T Hi Sens 6Hr 9.22 Troponin T Hi Sens 6Hr Delta Not Reportable Total Protein Albumin Globulin TSH 05/28/20 07:40 WBC RBC Hgb Hct MCV MCH MCHC RDW Plt Count MPV Neut % (Auto) Lymph % (Auto) [place] % (Auto) Eos % (Auto) Baso % (Auto) Neut # (Auto) Lymph # (Auto) [place] # (Auto) Eos # (Auto) Baso # (Auto) Nucleated RBC % (auto) Nucleated RBCs # PT INR APTT 139.1 H D Sodium Potassium Chloride Carbon Dioxide Anion Gap BUN Creatinine GFR Calculation Glucose Calculated Osmolality Calcium Total Bilirubin AST ALT Alkaline Phosphatase Troponin T Gen 5 ng/L Troponin T 120 Minute Delta Troponin T Troponin T Hi Sens 6Hr Troponin T Hi Sens 6Hr Delta Total Protein Albumin Globulin TSH Cardiac Studies: No Data to Display
--- NOTE | 2020-05-28 08:56 | PC.CHAP ---
Pastoral Care Encounter/Spiritual Assessment Type of Contact [] Declined table worker visit [] Patient/Family/Request visit [] Outpatient visit [] Follow-up visit [] Physician referral [] Code/Alert [x] Routine visit [] Staff referral [] Actively dying [] Patient sleeping [] Family support [] [] Out of room [] Palliative care [] [] Receiving care in room [] Pre-surgical visit [] Trauma [] Long length of stay [] ICU visit [] Other: Relational/Emotional Strength [] Patient feels connected with others/family/visitors/staff [] Distress [] Loneliness/isolation [] Abandonment Spirituality of Patient [] Person of Alecia [] Attends Presybeterian of their Alecia [] Believes in Prayer [] Reads Bible or Jain materials [] There are Spiritual issues to be addressed Car Unloader Helper Interventions [x] Prayer [x] Active listening [x] Non-anxious presence [x] Spiritual/emotional support [] Crisis/trauma care [] Spiritual counseling [] Bereavement support [] Provided bereavement packet [] Provided Bible/devotional materials [] Provided toy/stuffed animal, coloring book to patient or family member [] Provided Communion [] Anointing/[place] [] Salvation [x] Completed spiritual assessment [] Other: Impact on Illness or Injury [] Angry [] Fearful [] Anxious [] Often cries [] Exhaustion [] Unable to work [] Unable to attend amish [] Unable to walk/stand [] Unable to read [] Unable to drive [] Unable to eat/drink [] Unable to sleep [] Unable to be with family [] Patient intubated [] Other: Summary patient resting well. ready for test - wonderful attitude Time spent with patient 15 min
[2020-05-28] MEDS: gabapentin 300 mg Capsule 600 MG PO ×3 (09:33→21:27)
[2020-05-28] MEDS: sotalol 80 mg Tablet PO ×2 (09:33→21:28)
[2020-05-28] MEDS: tamsulosin 0.4 mg Capsule PO (09:33)
[2020-05-28] MEDS: atorvastatin 40 mg Tablet 20 MG PO (09:33)
[2020-05-28] MEDS: pantoprazole DR 40 mg Tablet PO (09:33)
--- NOTE | 2020-05-28 12:47 | ECG_ITS ---
[facility] Test Date: 2020-05-28 Pat Name: Tomás Martins Department: Room: 102 Gender: Male Funds Development Director: : 1950 Requested By: Lonny Irwin Order Number: [id number] Hilary MD: Lonny Irwin M.D. Measurements Intervals [place] Rate: 69 P: 60 [place]: 183 QRS: -5 QRSD: 116 T: 29 QT: 433 QTc: 465 Interpretive Statements SINUS RHYTHM WITH SINUS ARRHYTHMIA INCOMPLETE RIGHT BUNDLE BRANCH BLOCK [90+ ms QRS DURATION, TERMINAL R IN V1/V2, 40+ ms S IN I/aVL/V4/V5/V6] Compared to ECG 05/27/2020 17:05:27 Incomplete right bundle-branch block now present Atrial flutter no longer present Left-axis deviation no longer present Right bundle-branch block no longer present Electronically Signed On 05-28-2020 20:19:01 DEVELOPER DESIGNER by Lonny Irwin M.D. [id number]
[2020-05-28] MEDS: heparin drip 25,000 UNIT/500 ML PREMIX 22 UNIT IV (14:09)
--- NOTE | 2020-05-28 14:18 | PC.NURSE ---
[address] Irwin with concerns that patient has not gotten a diet order as well as a trazadoen being ordered daily at 9 am instructions to give patient an cardiac diet and change trazadone order to bedtime
[2020-05-28 15:13] LABS: Partial Thromboplastin Time 53.5 SECONDS (23.9-36.7)
--- NOTE | 2020-05-28 15:14 | XR_ITS ---
WS: [id number] Portable AP upright chest, 05/28/2020 Clinical Data: lung sound changes Comparison: None. Findings: No nodules, masses or effusions are seen. The heart is normal. The pulmonary vascularity is not increased. No pneumothorax is seen. Patchy opacities are seen in the periphery of the right lung which could represent minimal pneumonia and/or atelectasis. The left lung is clear. Monitor leads ar e on the chest wall. XR/XR chest 1V portable [id number] Impression: Minimal patchy opacities in periphery of right lung and recommend repeat chest x-ray one to 2 days.
--- NOTE | 2020-05-28 15:15 | PC.NURSE ---
notifeid Dr Irwin of patient appearance in work of breathing and changes in lung sounds fine crackle noted to LLL instruction to change normal saline fluid orders to KVO and obtain chest xray
[2020-05-28] MEDS: heparin 5,000 unit/mL INJ 1 mL IV (16:57)
--- NOTE | 2020-05-28 17:33 | PC.RESP ---
Smoking Cessation information sent to patient.
--- NOTE | 2020-05-28 19:36 | PM.PN ---
Subjective Subjective: Interval history: Feeling well today. Cardioversion was successful. Sinus rhythm resulted. Still on heparin. It sounds as though the heparin can be stopped safely prior to anticipated TURBT tomorrow. Will confirm that he can stay off anticoagulation for at least a week postop. If that is not possible to do so safely we can postpone his TURBT until it is. Will review with Dr. Irwin again. Reviewed the plans with the patient. Denies shortness of breath, chest pain, abdominal pain, nausea or vomiting. No changes in mental status. No lower extremity swelling or pain. Catheter draining well without complaints. No rashes or lesions. Vitals/I&O/Wt Last Vital Signs Temp 97.8 F 05/28/20 14:52 Pulse 65 05/28/20 14:52 Resp 23 H 05/28/20 14:52 BP 123/66 05/28/20 14:52 Pulse Ox 96 05/28/20 14:52 05/28/20 05/28/20 05/28/20 06:59 14:59 22:59 Intake Total 1143.75 / 3439.081 8146.417 / 1700.417 782.066 / 2482.483 Output Total 900 / 1900 600 / 600 550 / 1150 Balance 243.75 / -899.571 8388.417 / 1100.417 232.066 / 1332.483 Physical Exam Const: COMMON NORMALS: no acute distress, alert and well nourished GENERAL APPEARANCE: well kempt and well developed ORIENTATION/CONSCIOUSNESS: not confused HENMT: COMMON NORMALS: normocephalic and atraumatic HEAD & SCALP: normocephalic and atraumatic Neck/C-Spine: COMMON NORMALS: full ROM Resp: COMMON NORMALS: normal respiratory effort EFFORT & INSPECTION: No labored and No Actively coughing Neuro: COMMON NORMALS: no focal motor deficits SENSORIUM/ORIENTATION: Yes alert Psych: COMMON NORMALS: mental status grossly normal APPEARANCE: Yes grossly normal and Yes well kempt ATTITUDE: Yes calm and Yes engaged Skin: COMMON NORMALS: no rashes or lesions noted and no jaundice GENERAL SKIN EXAM: no rashes or lesions noted Urinary Catheter Management^: Bentley: Cath Placed During This Visit: no Reason for Continuing Indwelling Catheter: Acute Urinary Retention or Obstruction Data : 05/27/20 18:20 05/27/20 16:21 Attestations Medical Necessity Statement*: Being observed post cardioversion with anticipation of surgery tomorrow for TURBT that was originally planned but had to be postponed due to the cardiac findings of atrial flutter. If surgery does not go through tomorrow he will likely need to stay another night as originally planned. If surgery is postponed he should be to be discharged tomorrow as long as cardiology is comfortable with that. Time Spent in Patient Care: 16 - 35 minutes Coding Level of Care Code Acute Legal Executive Assistant for Vikram Berg
--- NOTE | 2020-05-28 19:57 | PC.NURSE ---
Spoke with Dr Irwin on telephone who ordered to stop Heparin drip at midnight.
[2020-05-28] MEDS: latanoprost 0.005% Op Soln 2.5 mL Btl 1 DROP EYE-BOTH (21:28)
[2020-05-28] MEDS: trazodone 100 mg Tablet PO (21:28)
[2020-05-29] VITALS (14 sets, daily range): BP systolic 103–154; BP diastolic 70–94; PULSE 50–65; RESP 14–21; TEMP 35.9–36.8; O2SAT 94–100
[2020-05-29] MEDS: sodium chloride 0.9% 1,000 ML 30 ML IV ×3 (01:38→15:40)
--- NOTE | 2020-05-29 06:20 | ECG_ITS ---
[facility] Test Date: 2020-05-29 Pat Name: Tomás Martins Department: Room: 102 Gender: Male Commissary Officer: : 1950 Requested By: Lonny Irwin Order Number: [id number] Richard MD: Marisela Schuler M.D. Measurements Intervals [place] Rate: 58 P: 65 [place]: 191 QRS: -3 QRSD: 104 T: 28 QT: 436 QTc: 428 Interpretive Statements SINUS BRADYCARDIA INCOMPLETE RIGHT BUNDLE BRANCH BLOCK [90+ ms QRS DURATION, TERMINAL R IN V1/V2, 40+ ms S IN I/aVL/V4/V5/V6] Compared to ECG 05/28/2020 13:02:16 Sinus rhythm no longer present Sinus arrhythmia no longer present Electronically Signed On 05-29-2020 19:33:03 AGRICULTURE RESEARCH DIRECTOR by Marisela Schuler M.D. [id number]
[2020-05-29 06:29] LABS: Platelet Count 134 10^3/cmm (130-400)
--- NOTE | 2020-05-29 07:49 | P.PN_ITS ---
Subjective Subjective: Interval history: Patient is feeling okay. According to him, his breathing is much better compared to how he felt at the time of his hospital admission. He continues to stay in the sinus rhythm/sinus bradycardia. His QTC is within normal limits. His chest x-ray revealed features of possible atelectasis. Has no evidence of heart failure. Medications: Reviewed: Yes Medication Review Details: Current Medications Atorvastatin Calcium (Lipitor) 20 mg PO DAILY [facility] Last Admin: 05/28/20 09:33 Dose: 20 mg Documented by: Gabapentin (Neurontin) 600 mg PO TID [facility] Last Admin: 05/28/20 21:27 Dose: 600 mg Documented by: Heparin Sodium (Beef Lung) (Heparin) 0 unit IV PRN PRN; Protocol PRN Reason: Heparin weight-base protocol Last Admin: 05/28/20 16:57 Dose: 2,000 unit Documented by: Diltiazem HCl 125 mg/ Sodium (Chloride) 125 mls @ 0 mls/hr IV .Q0M [facility]; Protocol Last Titration: 05/27/20 20:00 Dose: 0 mg/hr, 0 mls/hr Documented by: Heparin Sodium/Sodium Chloride (Heparin Drip) 25,000 unit in 500 mls @ 0 mls/hr IV .Q0M [facility]; Protocol Last Titration: 05/28/20 23:54 Dose: 0 unit/kg/hr, 0 mls/hr Documented by: Sodium Chloride (Sodium Chloride 0.9%) 1,000 mls @ 30 mls/hr IV .Q24H [facility] Last Admin: 05/29/20 01:38 Dose: 30 mls/hr Documented by: Lanolin (Lanolin Oint) 1 applic TOPICAL PRN PRN PRN Reason: DRYNESS Last Admin: 05/27/20 21:05 Dose: 1 applic Documented by: Latanoprost (Xalatan) 1 drop EYE-BOTH BEDTIME [facility] Last Admin: 05/28/20 21:28 Dose: 1 drop Documented by: Pantoprazole Sodium (Protonix) 40 mg PO DAILY [facility] Last Admin: 05/28/20 09:33 Dose: 40 mg Documented by: Sotalol HCl (Betapace) 80 mg PO BID@0900,2100 [facility] Last Admin: 05/28/20 21:28 Dose: 80 mg Documented by: Tamsulosin HCl (Flomax) 0.4 mg PO DAILY [facility] Last Admin: 05/28/20 09:33 Dose: 0.4 mg Documented by: Trazodone HCl (Desyrel) 100 mg PO BEDTIME [facility] Last Admin: 05/28/20 21:28 Dose: 100 mg Documented by: Vitals/I&O/Wt Last Vital Signs Temp 96.6 F L 05/29/20 07:03 Pulse 57 L 05/29/20 07:03 Resp 21 H 05/29/20 07:03 BP 115/77 05/29/20 07:03 Pulse Ox 97 05/29/20 07:03 05/28/20 05/29/20 05/29/20 22:59 06:59 14:59 Intake Total 782.066 / 2482.483 746.367 / 3228.850 Output Total 550 / 1150 300 / 1450 Balance 232.066 / 1332.483 446.367 / 1778.850 Physical Exam Narrative: EXAM NARRATIVE: GENERAL: The patient is alert and oriented times three. Not in any acute distress. HEENT: No significant pallor, icterus or lymphadenopathy. The pupils are reactant to light. Oral cavity: There are no mucous membrane lesions. Funduscopic examination: The fundus is not visualized NECK: Trachea appears to be central. No masses noted. No JVD or thyromegaly appreciated. No carotid bruit. RESPIRATORY: Scattered expiratory wheezing bilaterally. No evidence of any consolidation. BREASTS: Deferred. HEART: The PMI could not be palpated. No other palpable precordial events. Fi rst heart sound is variable second heart sound is normal. No S3. No significant murmurs appreciated. No pericardial rub or any click. ABDOMEN: No vessel pulsations or distention. No tenderness. No organomegaly appreciated. No abdominal bruit. Bowel sounds are normally heard. : Deferred. RECTAL: Deferred. LYMPHATIC: No lymphadenopathy noted in the neck or groin. EXTREMITIES:_Edema both lower extremities. No cyanosis. Peripheral pulses are palpable in fairly good volume and amplitude MUSCULOSKELETAL: No acute joint deformities or swelling SKIN: There are no significant scars or skin rash noted. NEUROPSYCHIATRIC: The patient is alert and oriented x3. Appears to be in a good mood. The higher functions are grossly within normal limits. No tremors or rigidity noted. Urinary Catheter Management^: Bentley: Cath Placed During This Visit: no Reason for Continuing Indwelling Catheter: Acute Urinary Retention or Obstruction Data : 05/29/20 05:24 05/27/20 16:21 Other Labs: Laboratory Last Values WBC 4.5 10^3/uL (4.0-10.0) 05/27/20 16:21 RBC 4.60 10^6/uL (4.1-5.3) 05/27/20 16:21 Hgb 14.2 g/dL (11.7-16.6) 05/27/20 16:21 Hct 43.0 % (42.0-52.0) 05/27/20 16:21 MCV 93.5 fL (80-94) 05/27/20 16: MCH 30.9 pg (28.0-34.0) 05/27/20 16: MCHC 33.0 g/dL (30.0-36.0) 05/27/20 16:21 RDW 12.7 % (12.1-15.1) 05/27/20 16:21 Plt Count 134 10^3/cmm (130-400) 05/29/20 05:24 MPV 10.3 fL (7.4-10.4) 05/27/20 16:21 Neut % (Auto) 68.7 % 05/27/20 16:21 Lymph % (Auto) 20.4 % 05/27/20 16:21 [place] % (Auto) 7.6 % 05/27/20 16:21 Eos % (Auto) 2.7 % 05/27/20 16:21 Baso % (Auto) 0.2 % 05/27/20 16:21 Neut # (Auto) 3.06 10^3/uL (1.8-7.7) 05/27/20 16:21 Lymph # (Auto) 0.9 10^3/uL (0.8-4.8) 05/27/20 16:21 [place] # (Auto) 0.3 10^3/uL (0.2-0.9) 05/27/20 16:21 Eos # (Auto) 0.1 10^3/uL (0.0-0.8) 05/27/20 16:21 Baso # (Auto) 0.0 10^3/uL (0.0-0.1) 05/27/20 16:21 Nucleated RBC % (auto) 0 % 05/27/20 16:21 Nucleated RBCs # 0.0 /100WBC 05/27/20 16:21 PT 13.80 SECONDS (12.1-14.9) 05/27/20 16:21 INR 1.03 (0.8-1.2) 05/27/20 16:21 APTT 53.5 SECONDS (23.9-36.7) H D 05/28/20 14:50 Sodium 138 mmol/L (136-145) 05/27/20 16:21 Potassium 3.9 mmol/L (3.5-5.1) 05/27/20 16:21 Chloride 103 mmol/L (98-107) 05/27/20 16:21 Carbon Dioxide 28 mmol/L (22-29) 05/27/20 16:21 Anion Gap 10.9 (5-19) 05/27/20 16:21 BUN 13 mg/dL (8-23) 05/27/20 16:21 Creatinine 1.2 mg/dL (0.7-1.2) 05/27/20 16:21 GFR Calculation 59.9 mL/min (90-130) L 05/27/20 16:21 Glucose 97 mg/dL (65-115) 05/27/20 16:21 Calculated Osmolality 286 mOsm/kg (285-295) 05/27/20 16:21 Calcium 8.7 mg/dL (8.5-10.5) 05/27/20 16:21 Total Bilirubin 1.0 mg/dL (0.15-1.2) 05/27/20 16:21 AST 12 U/L (0-40) 05/27/20 16:21 ALT 17 U/L (0-41) 05/27/20 16:21 Alkaline Phosphatase 69 IU/L (40-130) 05/27/20 16:21 Troponin T Gen 5 ng/L 9 ng/L (0-15) 05/27/20 16:21 Troponin T 120 Minute 8.55 ng/L (0-15) 05/27/20 18:07 Delta Troponin T Not Reportable 05/27/20 18:07 Troponin T Hi Sens 6Hr 9.22 ng/L (0-15) 05/27/20 22:10 Troponin T Hi Sens 6Hr Delta Not Reportable 05/27/20 22:10 Total Protein 6.2 g/dL (6.6-8.7) L 05/27/20 16:21 Albumin 4.1 g/dL (3.5-5.2) 05/27/20 16:21 Globulin 2.1 g/dL (1.3-4.6) 05/27/20 16:21 TSH 2.86 uIU/mL (0.27-4.20) 05/27/20 16:21 A&P Assessment and plan (1) New onset atrial fibrillation: Because of the bradycardia, I may cut back on the Betapace to 40 mg this morning. We will continue to monitor him on the telemetry. Status: Acute (2) Elevated blood pressure reading: The blood pressure seems to be under control. May continue on the current medications. Status: Acute (3) Bladder cancer: As per Dr. Yanez. Consider oral anticoagulation, after the surgery, when it is appropriate, as per Dr. Yanez Status: Acute Qualifiers: Bladder location: lateral wall Qualified Code(s): C67.2 - Malignant neoplasm of lateral wall of bladder (4) Renal insufficiency: Renal function appears to be stable. May continue on the current measures Status: Acute Additional A&P Information Patient need to be closely monitored during the perioperative phase. The repeat EKG today revealed a normal QTC of 423 If he is going to be discharged home today, please make an appointment to be seen in the heart care office in 1 week Attestations Medical Necessity Statement*: Disposition as per Dr. Yanez Coding Level of Care Code Acute Gum Rolling Machine Tender for [facility] Fwd Diagnoses New onset atrial fibrillation I48.91 Elevated blood pressure reading R03.0 Bladder cancer C67.2 Bladder location: lateral wall Renal insufficiency N28.9
[2020-05-29] MEDS: sotalol 80 mg Tablet 40 MG PO ×2 (09:06→20:01)
[2020-05-29] MEDS: pantoprazole DR 40 mg Tablet PO (09:07)
[2020-05-29] MEDS: atorvastatin 40 mg Tablet 20 MG PO (09:07)
[2020-05-29] MEDS: gabapentin 300 mg Capsule 600 MG PO ×3 (09:07→20:00)
--- NOTE | 2020-05-29 09:09 | PC.NURSE ---
Instructions by Dr devlin office to hold flomax prior to procedure
[2020-05-29 10:02] LABS: T4 Total 6.7 mcg/dL (4.9-10.5)
[2020-05-29 10:10] LABS: Partial Thromboplastin Time 28.4 SECONDS (23.9-36.7)
--- NOTE | 2020-05-29 10:25 | PC.CHAP ---
Pastoral Care Encounter/Spiritual Assessment Type of Contact [] Declined speaking unit assembler visit [] Patient/Family/Request visit [] Outpatient visit [] Follow-up visit [] Physician referral [] Code/Alert [X] Routine visit [] Staff referral [] Actively dying [] Patient sleeping [] Family support [] [] Out of room [] Palliative care [] [] Receiving care in room [] Pre-surgical visit [] Trauma [] Long length of stay [] ICU visit [] Other: Relational/Emotional Strength [] Patient feels connected with others/family/visitors/staff [] Distress [] Loneliness/isolation [] Abandonment Spirituality of Patient [] Person of Alecia [] Attends Scientologist of their Alecia [] Believes in Prayer [] Reads Bible or Judaism materials [] There are Spiritual issues to be addressed Router Operator Interventions [] Prayer [] Active listening [] Non-anxious presence [] Spiritual/emotional support [] Crisis/trauma care [] Spiritual counseling [] Bereavement support [] Provided bereavement packet [] Provided Bible/devotional materials [] Provided toy/stuffed animal, coloring book to patient or family member [] Provided Communion [] Anointing/[place] [] Salvation [] Completed spiritual assessment [] Other: Impact on Illness or Injury [] Angry [] Fearful [] Anxious [] Often cries [] Exhaustion [] Unable to work [] Unable to attend oriental orthodox [] Unable to walk/stand [] Unable to read [] Unable to drive [] Unable to eat/drink [] Unable to sleep [] Unable to be with family [] Patient intubated [] Other: Summary Time spent with patient
--- NOTE | 2020-05-29 11:50 | P.ANESUD_ITS ---
Pre-Anesthetic Update Pre-Anesthetic Assessment: Date of Surgery/Procedure: 05/29/20 Preop Nazia gnosis: Recurrent bladder cancer/ NGOC cardioversion Proposed Procedure: Operation Date: 05/27/20 12:00 Proposed Procedures p Transurethral Resection Bladder Tumor 64757 C67.9(Not Applicable) - Kenji Yanez MD s Cystoscopy(Not Applicable) - Kenji Yanez MD s Possible Retrograde Pyelogram(Not Applicable) - Kenji Yanez MD Operation Date: 05/28/20 08:00 Proposed Procedures p NGOC (Transesophageal Echocardiogram)(Not Applicable) - Lonny Irwin MD Operation Date: 05/29/20 12:00 Proposed Procedures p Transurethral Resection Bladder Tumor 25894 C67.9(Not Applicable) - Kenji Yanez MD s Cystoscopy(Not Applicable) - Kenji Yanez MD Any changes to Pre-Anesthetic Assessment?: Yes Changes from Pre-Anesthetic Assessment: Patient admitted and mycardial ischemia was ruled out, NGOC performed showed no clot and patient was cardioverted and has maintained rhythm and heart rate Last Intake: Intake Last Liquid Date 05/29/20 Last Liquid Time 07:00 Last Solid Date 05/28/20 Last Solid Time 18:00 Labs Last 48hrs: Laboratory Results - last 48 hr 05/27/20 05/27/20 05/27/20 16:21 16:21 16:21 WBC RBC Hgb Hct MCV MCH MCHC RDW Plt Count MPV Neut % (Auto) Lymph % (Auto) [place] % (Auto) Eos % (Auto) Baso % (Auto) Neut # (Auto) Lymph # (Auto) [place] # (Auto) Eos # (Auto) Baso # (Auto) Nucleated RBC % (a uto) Nucleated RBCs # PT INR APTT Sodium 138 Potassium 3.9 Chloride 103 Carbon Dioxide 28 Anion Gap 10.9 BUN 13 Creatinine 1.2 GFR Calculation 59.9 L Glucose 97 Calculated Osmolal ity 286 Calcium 8.7 Total Bilirubin 1.0 AST 12 ALT 17 Alkaline Phosphata se 69 Troponin T Gen 5 n g/L 9 Troponin T 120 Min [place] Troponin T Troponin T Hi Sens 6Hr Troponin T Hi Sens 6Hr [place] Total Protein 6.2 L Albumin 4.1 Globulin 2.1 TSH 2.86 Thyroxine (T4) 6.7 05/27/20 05/27/20 05/27/20 16:21 16:21 18:07 WBC 4.5 RBC 4.60 Hgb 14.2 Hct 43.0 MCV 93.5 MCH 30.9 MCHC 33.0 RDW 12.7 Plt Count 156 MPV 10.3 Neut % (Auto) 68.7 Lymph % (Auto) 20.4 [place] % (Auto) 7.6 Eos % (Auto) 2.7 Baso % (Auto) 0.2 Neut # (Auto) 3.06 Lymph # (Auto) 0.9 [place] # (Auto) 0.3 Eos # (Auto) 0.1 Baso # (Auto) 0.0 Nucleated RBC % (a uto) 0 Nucleated RBCs # 0.0 PT 13.80 INR 1.03 APTT Sodium Potassium Chloride Carbon Dioxide Anion Gap BUN Creatinine GFR Calculation Glucose Calculated Osmolal ity Calcium Total Bilirubin AST ALT Alkaline Phosphata se Troponin T Gen 5 n g/L Troponin T 120 Min [place] 8.55 Delta Troponin T Not Reportable Troponin T Hi Sens 6Hr Troponin T Hi Sens 6Hr [place] Total Protein Albumin Globulin TSH Thyroxine (T4) 05/27/20 05/27/20 05/27/20 18:20 18:20 22:10 WBC RBC Hgb Hct MCV MCH MCHC RDW Plt Count 154 MPV Neut % (Auto) Lymph % (Auto) [place] % (Auto) Eos % (Auto) Baso % (Auto) Neut # (Auto) Lymph # (Auto) [place] # (Auto) Eos # (Auto) Baso # (Auto) Nucleated RBC % (a uto) Nucleated RBCs # PT INR APTT 29.0 Sodium Potassium Chloride Carbon Dioxide Anion Gap BUN Creatinine GFR Calculation Glucose Calculated Osmolal ity Calcium Total Bilirubin AST ALT Alkaline Phosphata se Troponin T Gen 5 n g/L Troponin T 120 Min [place] Troponin T Troponin T Hi Sens 6Hr 9.22 Troponin T Hi Sens 6Hr [place] Not Reportable Total Protein Albumin Globulin TSH Thyroxine (T4) 05/28/20 05/28/20 05/28/20 01:05 07:40 14:50 WBC RBC Hgb Hct MCV MCH MCHC RDW Plt Count MPV Neut % (Auto) Lymph % (Auto) [place] % (Auto) Eos % (Auto) Baso % (Auto) Neut # (Auto) Lymph # (Auto) [place] # (Auto) Eos # (Auto) Baso # (Auto) Nucleated RBC % (a uto) Nucleated RBCs # PT INR APTT 68.6 H D 139.1 H D 53.5 H D Sodium Potassium Chloride Carbon Dioxide Anion Gap BUN Creatinine GFR Calculation Glucose Calculated Osmolal ity Calcium Total Bilirubin AST ALT Alkaline Phosphata se Troponin T Gen 5 n g/L Troponin T 120 Min [place] Troponin T Troponin T Hi Sens 6Hr Troponin T Hi Sens 6Hr [place] Total Protein Albumin Globulin TSH Thyroxine (T4) 05/29/20 05/29/20 05:24 09:40 WBC RBC Hgb Hct MCV MCH MCHC RDW Plt Count 134 MPV Neut % (Auto) Lymph % (Auto) [place] % (Auto) Eos % (Auto) Baso % (Auto) Neut # (Auto) Lymph # (Auto) [place] # (Auto) Eos # (Auto) Baso # (Auto) Nucleated RBC % (a uto) Nucleated RBCs # PT INR APTT 28.4 Sodium Potassium Chloride Carbon Dioxide Anion Gap BUN Creatinine GFR Calculation Glucose Calculated Osmolal ity Calcium Total Bilirubin AST ALT Alkaline Phosphata se Troponin T Gen 5 n g/L Troponin T 120 Min [place] Troponin T Troponin T Hi Sens 6Hr Troponin T Hi Sens 6Hr [place] Total Protein Albumin Globulin TSH Thyroxine (T4) Vitals: Temperature 98.2 F 05/29/20 11:13 Temperature Source Temporal Artery S can 05/29/20 11:13 Pulse Rate 57 L 05/29/20 11:13 Pulse Rhythm 05/28/20 20:00 Pulse Strength 3+ Normal 05/29/20 08:00 Respiratory Rate 19 H 05/29/20 11:13 Respiratory Effort Non-Labored 05/29/20 08:00 Respiratory Depth Normal 05/29/20 08:00 Respiratory Patter n 05/27/20 13:40 Blood Pressure 135/84 05/29/20 11:13 Blood Pressure Mariela n 101 05/29/20 11:13 Blood Pressure Pos ition Supine 05/29/20 04:00 Pulse Oximetry 97 05/29/20 11:13 Oxygen Delivery Me thod 05/29/20 11:13 Oxygen Flow Rate 2 05/28/20 09:35 Exam: Pre-Anes Outpt Exam: alert, oriented x 3, clear to auscultation bilate rally and regular rate & rhythm Cardiac Studies: No Data to Display
[2020-05-29] MEDS: levofloxacin-dextrose 5 % 500 MG/100 ML PREMIX 100 MG IV (11:58)
[2020-05-29] MEDS: lidocaine 2% Urojet 20 mL TOPICAL (12:17)
--- NOTE | 2020-05-29 13:15 | PM.OP ---
Operative Report Date of procedure: May 29, 2020 Pre-op Diagnosis: Recurrent bladder cancer Post-op diagnosis: same Post-op Findings: Large volume of TCCA around the bladder neck involving the trigone and posterior bladder floor. Orifices were not involved. Tumor completely resected/fulgurated. Procedure Done: Cystoscopy, transurethral section of bladder tumor large Pathology: Bladder tumor resection chips Surgeon: Beau Anesthesia: General Estimated blood loss: Minimal Urine output: Not measured Complications: None Findings: Large volume of bladder tumor primarily surrounding the bladder neck and onto the trigone and onto the posterior floor cephalad to the trigone. Some extension laterally as well Tumor appear to be well differentiated. Multiple areas resected into visible muscle. Involve the prostatic portion of the prostatic vesicle junction as well too. 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 Previous tumor was not high-grade and not invasive. Admitted for TURBT. He had originally been scheduled for a couple days prior but was found to be in atrial flutter at the time of preoperative admission and the surgery was postponed until today in order to allow cardiology evaluation and treatment and they felt that after cardioversion he was doing well enough to proceed with originally planned surgery. Procedure: After routine preoperative evaluation examination and obtaining of informed consent he was taken to the operating suite on 05/29/2020 where general anesthesia was administered without difficulty after appropriate timeout was performed, SCDs confirmed to be functioning, preoperative antibiotics administered, beta-liz protocol confirmed. Prepped and draped in usual sterile fashion in dorsolithotomy position pain careful attention to avoiding pressure points. 21 Greenlandic cystoscope with 30 degree lens was introduced into the Riether meatus and advanced into the bladder under videoscopy. The bladder was systematically examined with multiple papillary tumors along the posterior floor, cephalad to the trigone and distal to the trigone involving the lateral aspect of the trigone as well as circumferential involvement of the bladder neck extending onto the anterior prostatic fossa. Pickett sounds were used to calibrate the urethra and 30 Greenlandic was accommodated well without difficulty. 2% lidocaine jelly was instilled into the urethra then a 25 Greenlandic continuous flow resectoscope sheath with visual obturator in place was advanced under videoscopy into the bladder. The gyrus bipolar system was utilized with the super loop for initial resection. The multiple tumors on the bladder floor were resected. None involve the orifices and the orifices were spared throughout the procedure. All visible tumor on the floor was resected with visual resection into muscle in multiple areas. Attention was then directed to the bladder neck. There are a few small involvements on the posterior bladder neck they were resected. The bulk of the bladder neck tumor though was on the anterior half of the prostatic vesicle junction extending onto the anterior bladder wall. All of this was resected with the super loop down deep into the tissue. The button probe was then utilized to fulgurate all the resection sites for meticulous hemostasis after clearance of the specimens from the bladder. Tumor resected measured much >5 cm. On final inspection both orifices were uninvolved with resection. No visible tumor was identified on final inspection. Chips were confirmed to be out of the bladder and hemostasis was excellent. 20 Greenlandic three-way catheter with 30 cc balloon was then passed and the balloon inflated with 40 cc. Efflux was clear. Light CBI was initiated and remained clear. He tolerated the procedure well without complications and was awakened in the operating room and returned to the recovery room in stable condition. PLANS: 1. Admit to floor. I expect he will probably go home with a Bentley catheter in place tomorrow due to the extent of the dissection. 2. Continue cardiac observation.
--- NOTE | 2020-05-29 13:40 | PM.PACU ---
PACU note Post-Anesthesia Exam: awake and vital signs stable Disposition: back to floor
--- NOTE | 2020-05-29 16:18 | PC.NURSE ---
Obtained instructions from Dr Irwin for cardiac medications instructions as below Give sotalol 40mg at 2100 if HR is below 60 BPM Give sotalol 80mg at 2100 if HR is above 60 BPM obtain follow up EKG at 0600
[2020-05-29] MEDS: trazodone 100 mg Tablet PO (20:01)
[2020-05-29] MEDS: latanoprost 0.005% Op Soln 2.5 mL Btl 1 DROP EYE-BOTH (20:02)
--- NOTE | 2020-05-29 22:05 | PC.NURSE ---
Patient has no complaints at this time. Will monitor.
[2020-05-30] VITALS (8 sets, daily range): BP systolic 114–139; BP diastolic 64–79; PULSE 48–68; RESP 14–22; TEMP 36.4–37.2; O2SAT 96–100
--- NOTE | 2020-05-30 06:00 | ECG_ITS ---
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
--- NOTE | 2020-05-30 08:06 | P.PN_ITS ---
Subjective Subjective: Interval history: Patient is feeling okay. He underwent a cystoscopy and resection of the large volume of tumor- well differentiated transitional cell carcinoma of the bladder. He had an uneventful postprocedure course. Telemetry shows sinus rhythm/bradycardia. He had one episode of nonsustained ventricular tachycardia 4 beats. No other significant arrhythmias were noted. EKG from this morning is pending. Medications: Reviewed: Yes Medication Review Details: Current Medications Hydrocodone Bitart/Acetaminophen ([place] 5-325 Mg) 1 tab PO Q6H PRN PRN Reason: MODERATE PAIN Atorvastatin Calcium (Lipitor) 20 mg PO DAILY [facility] Last Admin: 05/29/20 09:07 Dose: 20 mg Documented by: Gabapentin (Neurontin) 600 mg PO TID [facility] Last Admin: 05/29/20 20:00 Dose: 600 mg Documented by: Sodium Chloride (Sodium Chloride 0.9%) 1,000 mls @ 30 mls/hr IV .Q24H [facility] Last Admin: 05/29/20 15:40 Dose: 30 mls/hr Documented by: Latanoprost (Xalatan) 1 drop EYE-BOTH BEDTIME [facility] Last Admin: 05/29/20 20:02 Dose: 1 drop Documented by: Pantoprazole Sodium (Protonix) 40 mg PO DAILY [facility] Last Admin: 05/29/20 09:07 Dose: 40 mg Documented by: Sotalol HCl (Betapace) 40 mg PO ONCE [facility] Last Admin: 05/29/20 20:01 Dose: 40 mg Documented by: Tamsulosin HCl (Flomax) 0.4 mg PO DAILY [facility] Last Admin: 05/29/20 09:09 Dose: Not Given Documented by: Trazodone HCl (Desyrel) 100 mg PO BEDTIME [facility] Last Admin: 05/29/20 20:01 Dose: 100 mg Documented by: Vitals/I&O/Wt Last Vital Signs Temp 97.8 F 05/30/20 07:03 Pulse 56 L 05/30/20 07:03 Resp 14 05/30/20 07:03 BP 126/75 05/30/20 07:03 Pulse Ox 100 05/30/20 07:03 05/29/20 05/30/20 05/30/20 22:59 06:59 14:59 Intake Total 901 / 1001 200 / 1201 Balance 901 / 1001 200 / 1201 Physical Exam Narrative: EXAM NARRATIVE: GENERAL: The patient is alert and oriented times three. Not in any acute distress. HEENT: No significant pallor, icterus or lymphadenopathy. NECK: Trachea appears to be central. No masses noted. No JVD or thyromegaly appreciated. No carotid bruit. RESPIRATORY: Scattered expiratory wheezing bilaterally. No evidence of any co nsolidation. BREASTS: Deferred. HEART: The PMI could not be palpated. No other palpable precordial events. First heart sound is variable second heart sound is normal. No S3. No significant murmurs appreciated. No pericardial rub or any click. ABDOMEN: No vessel pulsations or distention. No tenderness. No organomegaly appreciated. No abdominal bruit. Bowel sounds are normally heard. : Deferred. RECTAL: Deferred. LYMPHATIC: No lymphadenopathy noted in the neck or groin. EXTREMITIES:Edema both lower extremities. No cyanosis. Peripheral pulses are palpable in fairly good volume and amplitude MUSCULOSKELETAL: No acute joint deformities or swelling SKIN: There are no significant scars or skin rash noted. NEUROPSYCHIATRIC: The patient is alert and oriented x3. Appears to be in a good mood. The higher functions are grossly within normal limits. No tremors or rigidity noted. Urinary Catheter Management^: Bentley: Cath Placed During This Visit: yes, but has since been removed by the nurse Reason for Continuing Indwelling Catheter: Acute Urinary Retention or Obstruction Urinary Catheter Date of Insertion: 05/29/20 Urinary Catheter Time of Insertion: 13:10 Date Urinary Catheter Removed: 05/29/20 Time Urinary Catheter Discontinued: 12:10 Data : 05/29/20 05:24 05/27/20 16:21 A&P Assessment and plan (1) New onset atrial fibrillation: Because of the bradycardia, we may continue on the Betapace 40 mg twice daily. We will review the EKG today. Status: Resolved (2) Elevated blood pressure reading: The blood pressure seems to be under control. May continue on the current medications. Status: Resolved (3) Bladder cancer: Patient will be seen in the office in a week. If he continues to do okay, we may start him on oral anticoagulation at that time, if okay with Dr. Yanez Status: Acute Qualifiers: Bladder location: lateral wall Qualified Code(s): C67.2 - Malignant neoplasm of lateral wall of bladder (4) Renal insufficiency: Renal function appears to be stable. May continue on the current measures Status: Acute Additional A&P Information Patient continues remain stable, may be discharged home today. We will continue the Betapace at 40 mg p.o. twice daily. Please make an appointment to be seen by me in the office in a week. We will do a repeat EKG at that time. Also will consider oral anticoagulation. Also may consider doing an outpatient myocardial perfusion imaging, to evaluate for any underlying coronary ischemia Attestations Medical Necessity Statement*: Possible discharge home today Coding Level of Care Code Acute Loom Doffer for Chg Fwd Diagnoses New onset atrial fibrillation I48.91 Elevated blood pressure reading R03.0 Bladder cancer C67.2 Bladder location: lateral wall Renal insufficiency N28.9
[2020-05-30] MEDS: atorvastatin 40 mg Tablet 20 MG PO (08:14)
[2020-05-30] MEDS: tamsulosin 0.4 mg Capsule PO (08:14)
[2020-05-30] MEDS: pantoprazole DR 40 mg Tablet PO (08:14)
[2020-05-30] MEDS: gabapentin 300 mg Capsule 600 MG PO ×2 (08:15→16:04)
[2020-05-30] MEDS: sotalol 80 mg Tablet 40 MG PO (10:16)
--- NOTE | 2020-05-30 12:18 | ANE.PACU2 ---
Inpatient post-anesthesia follow up: Airway intact: Yes Vital signs: Temperature 98.9 F Pulse Rate 58 Respiratory Rate 21 Blood Pressure 114/66 Pulse Oximetry 96 Oxygen Delivery Me thod [ Nasal Cannula Current Rate & Del josselin] Oxygen Delivery Me thod Room Air Oxygen Flow Rate [ Current Rate 2 & Delivery] Oxygen Flow Rate 2 Fraction of Inspir ed Oxygen Hydration adequate: Yes Nausea and vomiting: No Pain level: 1 Mental status: Baseline
--- NOTE | 2020-05-30 16:26 | PC.NURSE ---
at 1330 Dr Yanez infused in pt bladder thru Bentley cath Mitomycin 40mg/40ml. to dwell for x1 hr then drain
--- NOTE | 2020-05-30 16:27 | PC.NURSE ---
drained bladder per mary at 1430 and irrigated bladder for x [address] Yanez verbal order. Clive well
--- NOTE | 2020-05-30 16:56 | PM.DCS ---
Discharge Providers Date of Admission: 05/28/20 18:50 Date of Discharge: May 30, 2020 Attending Provider at Admission: Lonny Irwin MD Attending Provider at Discharge: Kenji Yanez MD Primary Care Provider: FLORENCIA Larson Diagnoses at Discharge Discharge Diagnosis (1) New onset atrial fibrillation: Status: Acute (2) Elevated blood pressure reading: Status: Acute (3) Bladder cancer: Status: Acute Permanent problem details: Large papillary tumor right posterior lateral bladder wall resected 11/15/2019. 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 Repeat resection of the tumor on 05/29/2020 Qualifiers: Bladder location: lateral wall Qualified Code(s): C67.2 - Malignant neoplasm of lateral wall of bladder (4) Renal insufficiency: Status: Acute Reason for Visit Reason for Visit: cystoscopy, transurethral resection of bladder can Hospital Course Discharge Summary: Patient was scheduled for observation status TURBT after discovery of multiple bladder tumors on routine active surveillance cystoscopy in the clinic. In the preoperative area on 04/26/2020 the day of his scheduled surgery he was found to have new onset atrial fibrillation. Surgery was canceled and cardiology was consulted. He was admitted for work-up of his cardiac status prior to considering moving toward surgery. He was stable throughout though. Dr. Irwin consulted and treated his cardiac condition with cardioversion and anticoagulation and the patient converted to sinus. On 05/29/2020 he underwent TURBT (large) and did well. On postoperative day #1 he underwent mitomycin instillation by Dr. Yanez (40 mg) and the medicine was retained in his bladder for an hour. He did well with this and was discharged on the evening of postoperative day #1 in stable condition. Because of the location and volume of the bladder cancer it was decided to leave his catheter in postoperatively and at discharge with plan for voiding trial on 06/04/2020. Hopefully the pathology report will be available by that time. Physical Exam Const: COMMON NORMALS: no acute distress, alert and well nourished GENERAL APPEARANCE: well kempt and well developed ORIENTATION/CONSCIOUSNESS: not confused HENMT: COMMON NORMALS: normocephalic and atraumatic HEAD & SCALP: normocephalic and atraumatic Eye: COMMON NORMALS: conjunctivae normal and no scleral icterus CONJUNCTIVA: Yes conjunctivae normal Neck/C-Spine: GENERAL: Yes normal visual inspection Resp: COMMON NORMALS: normal respiratory effort EFFORT & INSPECTION: No labored and No Actively coughing : OTHER: Catheter draining clear yellow urine. Neuro: COMMON NORMALS: no focal motor deficits SENSORIUM/ORIENTATION: Yes alert Psych: COMMON NORMALS: mental status grossly normal APPEARANCE: Yes grossly normal and Yes well kempt ATTITUDE: Yes calm and Yes engaged Skin: COMMON NORMALS: no rashes or lesions noted GENERAL SKIN EXAM: no rashes or lesions noted Urinary Catheter Management^: Bentley: Cath Placed During This Visit: yes, but has since been removed by the nurse Reason for Continuing Indwelling Catheter: Acute Urinary Retention or Obstruction Urinary Catheter Date of Insertion: 05/29/20 Urinary Catheter Time of Insertion: 13:10 Date Urinary Catheter Removed: 05/29/20 Time Urinary Catheter Discontinued: 12:10 Discharge Data Data Completed and Pending: Completed Studies During Hospitalization Category Date Time Status XR chest 1V pierre ble [id number] Routine Exams 05/28/20 15:14 Completed CV echo complete* [id number] Routine Ultrasound 05/27/20 12:57 Completed US echo NGOC [CV e cho transesophagea l [id number]] Routine Ultrasound 05/28/20 08:15 Completed Pending at discharge Category Date Time Status Platelet Count Q2 D Lab 05/31/20 04:00 Ordered Pathology: Surgic al [PTH] Routine Pth 05/29/20 13:22 Received Vitals: Last Vital Signs Temp 97.6 F 05/30/20 15:54 Pulse 61 05/30/20 15:54 Resp 18 05/30/20 15:54 BP 139/79 05/30/20 15:54 Pulse Ox 97 05/30/20 15:54 Discharge Plan Discharge Patient Disposition: Home Condition: Stable Prescriptions: Continued lubricants Gel 1 each TOPICAL ONCE Qty: 45 RF: 0 gabapentin 600 mg tablet 600 mg PO TID RF: 0 tamsulosin [Flomax] 0.4 mg capsule 0.4 mg PO DAILY RF: 0 omeprazole 20 mg capsule,delayed release(DR/EC) 20 mg PO DAILY RF: 0 trazodone 100 mg tablet 100 mg PO DAILY RF: 0 lovastatin 20 mg tablet 20 mg PO DAILY RF: 0 latanoprost 0.005 % drops 1 drop ophthalmic (eye) BEDTIME RF: 0 Held meloxicam 15 mg tablet 15 mg PO DAILY RF: 0 Hold Instructions: Resume on 06/13/20. Discharge Orders: Discharge Order (Routine); Ordered 05/30/20 Ordered By: Kenji Yanez Discharge Diet: Cardiac Discharge Activity: Limit activity as instructed Patient Instructions: Transesophageal Echocardiogram (DC) Activity Restrictions/Additional Instructions: 1. The catheter will remain in place until I see you in the office on 06/04/2020. At that point we will remove the catheter. Hopefully the pathology report from the surgery will be available by that time 2. Please follow-up with Dr. Irwin as per his instructions. 3. Avoid any heavy lifting or straining (>10 pounds for 2 to 3 weeks). Discharge Attestations Time Spent in Discharge Care*: greater than 30 min Status at Discharge: Cognitive status at discharge: cognitively intact, Behavioral status at discharge: cooperative, Quality Metrics Clinical Quality Measures During this hospital stay, did patient experience: None Coding Level of Care Code Acute Core Microarchitect for Vikram Fwd Diagnoses New onset atrial fibrillation I48.91 Elevated blood pressure reading R03.0 Bladder cancer C67.2 Bladder location: lateral wall Renal insufficiency N28.9
--- NOTE | 2020-05-30 18:18 | PC.NURSE ---
Discharge instructions given per the physician's instructions. Patient verbalized understanding of discharge information and did not have any further questions. IV has been removed. Nurse educated patient on how to change mary bag to leg bag. Patient returned demonstration and verbalized understanding, no further questions at this time. Patient sister contacted for transportation. No needs identified at this time.
--- NOTE | 2020-06-14 10:06 | PM.OP ---
Operative Report Date of procedure: June 14, 2020 Pre-op Diagnosis: Recurrent bladder cancer Procedure: Electrical cardioversion report Preprocedure diagnoses: Atrial flutter. Brief history: This is a 69-year-old white male who was admitted to the hospital for a new onset of atrial flutter/fibrillation. He was electively admitted to the hospital for a cystoscopic bladder tumor resection. He was found to be in atrial flutter with rapid ventricular rate. He was started on AV veda blocking agents. He continued to be in atrial flutter with rapid rate. His blood pressure also started dropping into below 100, systolic. Because of the ongoing arrhythmia and impending hemodynamic compromise, for further management of his condition, electrical cardioversion was recommended. A NGOC was performed prior to the cardioversion which revealed no intracardiac masses. Location of the procedure: First Floor Electrode application: Anteroposterior Electrical energy applied: 120 J of biphasic current Number of shocks: 1 Final rhythm: Normal sinus rhythm Final blood pressure: 115/70 Complications: None Recommendation(s): Continue on the sotalol 40 twice daily
== END 2020-05-30 19:10 | disposition home or self-care (01) | DRG 988 ==
LOC: CSU 13:29
PROVIDERS: Admitting Provider Internal Medicine Cardiovascular Disease; PCP Nurse Practitioner Family; Visit Provider Urology
PROC: 0TJB8ZZ Inspection of Bladder, Via Natural or Artificial Opening Endoscopic (ICD-10-PCS; CPT 52000; principal; 2020-05-27 12:00)
PROC: 0TBB8ZZ Excision of Bladder, Via Natural or Artificial Opening Endoscopic (ICD-10-PCS; 2020-05-27 12:00)
PROC: (CPT 74420; 2020-05-27 12:00)
PROC: B24BZZ4 Ultrasonography of Heart with Aorta, Transesophageal (ICD-10-PCS; CPT 93312; principal; 2020-05-28 08:00)
PROC: 5A2204Z Restoration of Cardiac Rhythm, Single (ICD-10-PCS; 2020-05-28 08:00)
PROC: 0TBB8ZZ Excision of Bladder, Via Natural or Artificial Opening Endoscopic (ICD-10-PCS; principal; 2020-05-29 12:00)
PROC: 0TJB8ZZ Inspection of Bladder, Via Natural or Artificial Opening Endoscopic (ICD-10-PCS; CPT 52000; 2020-05-29 12:00)
DX: I48.91 Unspecified atrial fibrillation (principal); N13.8 Other obstructive and reflux uropathy; C67.2 Malignant neoplasm of lateral wall of bladder; E78.5 Hyperlipidemia, unspecified; F17.210 Nicotine dependence, cigarettes, uncomplicated; N40.1 Benign prostatic hyperplasia with lower urinary tract symptoms; Z85.828 Personal history of other malignant neoplasm of skin; R03.0 Elevated blood-pressure reading, without diagnosis of hypertension; N28.9 Disorder of kidney and ureter, unspecified; K21.9 Gastro-esophageal reflux disease without esophagitis; M54.5 Low back pain; M19.90 Unspecified osteoarthritis, unspecified site
CPT/HCPCS: 12345; 36415; 71045; 80053; 84436; 84443; 84484; 85025; 85049; 85610; 85730; 88305; 92960; 93005; 93306; 93312; 93320; 93325; 96365; G0378; J1644; J1956; J2405; J2704; J3010; J3490; J7030; J9280

== ENCOUNTER → 2020-07-05 16:30 | Outpatient (BNVA) | payer MEDICARE, MEDICAID, SELFPAY | PROVIDERS: PCP Nurse Practitioner Family; Visit Provider Urology | DX: C67.2 Malignant neoplasm of lateral wall of bladder (principal); C67.5 Malignant neoplasm of bladder neck | CPT/HCPCS: 81003 ==

== ENCOUNTER → 2020-07-12 11:56 | Outpatient (BNVA) | payer MEDICARE, MEDICAID, SELFPAY | PROVIDERS: PCP Nurse Practitioner Family; Visit Provider Urology | DX: C67.2 Malignant neoplasm of lateral wall of bladder (principal); C67.5 Malignant neoplasm of bladder neck; N40.1 Benign prostatic hyperplasia with lower urinary tract symptoms; N13.8 Other obstructive and reflux uropathy; R33.9 Retention of urine, unspecified; F17.290 Nicotine dependence, other tobacco product, uncomplicated | CPT/HCPCS: 81003 ==

== ENCOUNTER → 2020-07-25 13:13 | Outpatient (BNVA) | payer MEDICARE, MEDICAID, SELFPAY | PROVIDERS: PCP Nurse Practitioner Family; Visit Provider Urology | DX: C67.5 Malignant neoplasm of bladder neck (principal); C67.2 Malignant neoplasm of lateral wall of bladder | CPT/HCPCS: 81003 ==

== ENCOUNTER → 2020-08-09 11:02 | Outpatient (BNVA) | payer MEDICARE, MEDICAID, SELFPAY | PROVIDERS: PCP Nurse Practitioner Family; Visit Provider Urology | DX: C67.5 Malignant neoplasm of bladder neck (principal) | CPT/HCPCS: 81003 ==

== ENCOUNTER → 2020-08-16 17:33 | Outpatient (BNVA) | payer MEDICARE, MEDICAID, SELFPAY | PROVIDERS: PCP Nurse Practitioner Family; Visit Provider Urology | DX: D09.0 Carcinoma in situ of bladder (principal); C67.5 Malignant neoplasm of bladder neck | CPT/HCPCS: 81003 ==

== ENCOUNTER → 2020-08-23 11:24 | Outpatient (BNVA) | payer MEDICARE, MEDICAID, SELFPAY | PROVIDERS: PCP Nurse Practitioner Family; Visit Provider Urology | DX: C67.5 Malignant neoplasm of bladder neck (principal) | CPT/HCPCS: 81003 ==

== ENCOUNTER → 2020-10-04 09:44 | Outpatient (BNVA) | payer MEDICARE, MEDICAID, SELFPAY | PROVIDERS: PCP Nurse Practitioner Family; Visit Provider Urology | DX: Z20.822 Contact with and (suspected) exposure to COVID-19 (principal); C67.5 Malignant neoplasm of bladder neck | CPT/HCPCS: 87635 ==

== ENCOUNTER 2020-10-07 14:31 | Observation (INO) | payer MEDICARE, MEDICAID, SELFPAY ==
[2020-10-04 17:40] VITALS: BMI 29.4
[2020-10-07] VITALS (12 sets, daily range): BP systolic 99–149; BP diastolic 67–82; PULSE 42–95; RESP 10–18; TEMP 36.4–36.9; O2SAT 91–100
[2020-10-07] MEDS: sodium chloride 0.9% 1,000 ML 30 ML IV (12:53)
--- NOTE | 2020-10-07 13:15 | W.PM.OPSUD ---
Surgery/Procedure H&P Update DATE OF PROCEDURE: October 07, 2020 DATE H&P PERFORMED: 10/04/20 H&P UPDATE INFORMATION: I have reviewed H&P completed within last 30 days, I have examined patient prior to procedure, No changes to prior documentation and H[place] is [place] [facility] [place] on date indicated PREOP DIAGNOSIS: Recurrent TCCA bladder PLANNED PROCEDURE: Operation Date: 10/07/20 13:45 Proposed Procedures p Cystoscopy 10949 C67.4(Not Applicable) - Kenji Yanez MD s Transurethral Resection Bladder Tumor(Not Applicable) - Kenji Ynaez MD
--- NOTE | 2020-10-07 13:21 | P.OP_ITS ---
Operative Report Date of procedure: October 07, 2020 Pre-op Diagnosis: Recurrent TCCA bladder Post-op diagnosis: same Post-op Findings: Multiple tumors located in the bladder all completely resected Procedure Done: Cystoscopy, transurethral section of bladder tumor large Pathology: Bladder tumor sites Surgeon: Beau Anesthesia: General Estimated blood loss: Less than 10 cc Urine output: not measured Complications: None Findings: 5 distinct areas of papillary tumor were identified. Polyp completely resected. Cumulative diameter >5 cm. Condition: stable Disposition: PACU Brief History: Tomás is a very pleasant 69-year-old white male originally diagnosed with noninvasive TCCA October 2019 with multiple post TURBT surveillance scope showing no evidence of recurrence until May 2020. At that visit cystoscopy revealed a large volume of bladder tumor primarily surrounding the bladder neck and onto the trigone and posterior floor cephalad to the trigone. He underwent resection and postoperative mitomycin. Based on the large volume grade 2-3 TCCA it was decided to initiate BCG intravesical therapy and he recently completed a 6 weeks course of induction therapy. Last week 6 weeks after he completed his BCG repeat surveillance cystoscopy showed multiple recurrences on the floor the bladder. It was recommended that he undergo TURBT. Procedure: After routine preoperative evaluation examination and obtaining of informed consent he was taken to the operating suite on 10/07/2020 where general anesthesia was administered without difficulty after appropriate timeout was performed, SCDs confirmed to be functioning, preoperative antibiotics administered, beta-liz protocol confirmed. Prepped and draped in usual sterile fashion in dorsolithotomy position paying careful attention to avoiding pressure points. 21 Mongolian cystoscope with 30 degree lens was introduced into the urethral meatus and advanced into the bladder to videoscopy. The bladder was systematically examined with both 30 and 70 degree lenses. Recurrences as described above. The urethra was then calibrated with Sofía sounds and easily accommodated 30 Mongolian. 2% lidocaine jelly was instilled into the urethra and a 25 Mongolian continuous- flow resectoscope sheath with visual obturator in place was advanced into the bladder without difficulty. The gyrus bipolar system was utilized for resection and fulguration first with the super loop and then the button probe for the basis. All tumors were completely resected down into the muscle wall with muscle seen in the depths of the resection. One of the tumors was just lateral to the right ureteral orifice and resection was performed without involving the orifice and not requiring cauterization. Total volume of tumor estimated size: >5 cm All chips were evacuated from the bladder. Prior to placement of catheter hemostasis was confirmed. The [address]olian [address]- way Bentley catheter was then placed into the bladder without difficulty. 5 cc in the balloon. He tolerated the procedure well without complications and was awakened in the operating room and returned to the recovery room in stable condition. Anticipate mitomycin instillation tomorrow.
[2020-10-07 13:26] LABS: Anion Gap 10.5 (5-19); Blood Urea Nitrogen 14 mg/dL (8-23); Calcium 8.7 mg/dL (8.5-10.5); Carbon Dioxide 30 mmol/L (22-29); Chloride 101 mmol/L (98-107); Glomerular Filtration Rate 66.2 mL/min (90-130); Glucose 94 mg/dL (65-115); Osmolality Calculated 284 mOsm/kg (285-295); Potassium 4.5 mmol/L (3.5-5.1); Sodium 137 mmol/L (136-145)
--- NOTE | 2020-10-07 13:31 | ANES.PREANE2 ---
Pre-Anesthetic Assessment Pre-Anesthetic Assessment: Height/Weight: Height 1.83 m Weight 98.43 kg Temp Pulse Resp BP Pulse Ox 98 F 52 L 18 137/78 97 10/07/20 12:39 10/07/20 12:39 10/07/20 12:39 10/07/20 12:39 10/07/20 12:39 Preop Diagnosis: Recurrent TCCA bladder Proposed Procedure: Operation Date: 10/07/20 13:45 Proposed Procedures p Cystoscopy 10359 C67.4(Not Applicable) - Kenji Yanez MD s Transurethral Resection Bladder Tumor(Not Applicable) - Kenji Yanez MD Was Beta Yunior taken within 24 hours: Yes Was Clonidine taken within 24 hours: N/A Last intake: Intake Last Liquid Date 10/07/20 Last Liquid Time 08:00 Last Solid Date 10/06/20 Last Solid Time 16:00 Social: Social History: No alcohol and No tobacco Exam: Pre-Anes Outpt Exam: alert, oriented x 3, clear to auscultation bilaterally and regular rate & rhythm Airway: Submandibular: WNL Cervical ROM: WNL MP: 2 Dentition: False CV/HEM: CV/HEM: Afib, Arrythmia and HTN GI: GI: GERD Anesthetic Plan: ASA status: 3 Anesthesia: General Risk of > 500 ml blood loss (7ml/kg in children): No Meds/Allergies Current Medications: Current Medications Generic Name Dose Route Start Last Admin Trade Name Freq PRN Reason Stop Dose Admin Sodium Chloride 1,000 mls @ 30 ml s/hr 10/07/20 12:30 10/07/20 12:53 Sodium Chloride 0.9% IV 10/08/20 12:29 30 mls/hr .Q24H RUBEN Administration PFSH Anesthesia PFSH: Medical History (Updated 10/04/20 @ 09:44 by Kenji Yanez MD) Benign essential HTN Bladder cancer Large papillary tumor right posterior lateral bladder wall resected 11/15/2019. 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 Repeat resection of the tumor on 05/29/2020 BPH with obstruction/lower urinary tract symptoms Elevated blood pressure reading Gross hematuria Malignant neoplasm of urinary bladder neck Nerve pain New onset a-fib Personal history of skin cancer Postoperative urinary retention Renal insufficiency Surgical History H/O transurethral destruction of bladder lesion Hx of bilateral cataract extraction Hx of cholecystectomy Hx of hand surgery Family History Mother , AT AGE 100 LUNG CANCER Cancer Father , AT AGE 82 COLON CANCER Cancer Denies family history of Diabetes CAD (coronary artery disease) Clotting disorder Dementia Chronic kidney disease (CKD) Suicide Anesthesia complication Bleeding disorder Lung disease Stroke Social History Smoking and tobacco status: former smoker Alcohol intake: current Alcohol intake frequency: holidays/special occasions only Adopted: No Caregiver/support person: No Lives independently: No Marital status: Current occupational status: retired History of recent travel: No Current gender identity: Male Data Anesthesia CBC & Chem 7: 10/07/20 12:55 10/07/20 12:55 Other Labs: Laboratory Results - last 48 hr 10/07/20 12:55 Sodium 137 Potassium 4.5 Chloride 101 Anion Gap 10.5 BUN 14 Creatinine 1.1 Glucose 94 Calcium 8.7 Cardiac Studies: No Data to Display
[2020-10-07] MEDS: levofloxacin-dextrose 5 % 500 MG/100 ML PREMIX 100 MG IV (13:34)
[2020-10-07] MEDS: lidocaine 2% Urojet 20 mL (14:01)
--- NOTE | 2020-10-07 15:56 | ANE.PACU2 ---
Inpatient post-anesthesia follow up: Airway intact: Yes Vital signs: Temperature 97.7 F Pulse Rate 60 Respiratory Rate 18 Blood Pressure 137/68 Pulse Oximetry 98 Oxygen Delivery Me thod Room Air Oxygen Flow Rate Fraction of Inspir ed Oxygen Hydration adequate: Yes Nausea and vomiting: No Pain level: 2 Mental status: Baseline
[2020-10-07] MEDS: dextrose 5%-ns + KCl 20 20 MEQ/1,000 ML BAG 30 MEQ IV (16:04)
[2020-10-07] MEDS: tamsulosin 0.4 mg Capsule PO (18:21)
[2020-10-07] MEDS: docusate sodium 100 mg Capsule PO (18:21)
[2020-10-07] MEDS: trazodone 100 mg Tablet PO (21:17)
[2020-10-07] MEDS: latanoprost 0.005% Op Soln 2.5 mL Btl 1 DROP EYE-BOTH (21:17)
[2020-10-07] MEDS: gabapentin 300 mg Capsule PO (21:17)
[2020-10-08 00:12] VITALS: BP 126/74; PULSE 48; RESP 17; TEMP 36.6; O2SAT 97
[2020-10-08 04:22] VITALS: BP 111/64; PULSE 57; RESP 17; TEMP 36.7; O2SAT 96
[2020-10-08 06:55] VITALS: BP 117/74; PULSE 50; RESP 18; TEMP 36.7; O2SAT 97
--- NOTE | 2020-10-08 07:53 | P.DS_ITS ---
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 Admitted for TURBT. Hospital Course Hospital Course He was admitted on the day of procedure (10/07/2020). The procedure went well. He had multiple areas of recurrence that were fully resected. Postoperatively he did well. On postoperative day #1 he was felt appropriate for MITOMYCIN INTRAVESICAL INSTILLATION (40 mg). Tolerated well for an hour and then it was drained. He voided adequately and was discharged on postop day #1. Discharged in stable condition. Physical Exam Const: COMMON NORMALS: no acute distress and alert : BLADDER/KIDNEY EXAM: Yes bladder normal to palpation PENIS: normal penis MEATUS: meatus normal Neuro: SENSORIUM/ORIENTATION: Yes alert Psych: COMMON NORMALS: mental status grossly normal, Normal thought process present and cooperative ATTITUDE: Yes calm and Yes engaged THOUGHT PROCESS: Normal thought process present Urinary Catheter Management^: 3-way Urethral CBI: Cath Placed During This Visit: yes Urinary Catheter Date of Insertion: 10/07/20 Urinary Catheter Time of Insertion: 14:21 Discharge Data Data Completed and Pending: Pending at discharge Category Date Time Status Pathology: Surgic al [PTH] Routine Pth 10/07/20 14:21 Ordered Labs from last 24 hours 10/07/20 12:55 Sodium 137 Potassium 4.5 Chloride 101 Carbon Dioxide 30 H Anion Gap 10.5 BUN 14 Creatinine 1.1 GFR Calculation 66.2 L Glucose 94 Calculated Osmolal ity 284 L Calcium 8.7 Vitals: Last Vital Signs Temp 98.0 F 10/08/20 06:55 Pulse 50 L 10/08/20 06:55 Resp 18 10/08/20 06:55 BP 117/74 10/08/20 06:55 Pulse Ox 97 10/08/20 06:55 Discharge Plan Discharge Patient Disposition: Home Condition: Stable Prescriptions: Continued omeprazole 20 mg capsule,delayed release(DR/EC) 20 mg PO DAILY RF: 0 trazodone 100 mg tablet 100 mg PO DAILY RF: 0 lovastatin 20 mg tablet 20 mg PO DAILY RF: 0 latanoprost 0.005 % drops 1 drop ophthalmic (eye) BEDTIME RF: 0 gabapentin 600 mg tablet 300 mg PO TID RF: 0 sotalol [Betapace] 80 mg tablet 40 mg PO BID 30 Days Qty: 30 RF: 5 amlodipine 5 mg tablet 5 mg PO DAILY 30 Days Qty: 30 RF: 5 tamsulosin [Flomax] 0.4 mg capsule 0.4 mg PO BID Qty: 60 RF: 12 Held meloxicam 15 mg tablet 15 mg PO DAILY RF: 0 Hold Instructions: Resume on 10/10/20. aspirin 325 mg tablet 325 mg PO DAILY Qty: 30 RF: 0 Hold Instructions: Resume on 10/15/20. Discharge Orders: Discharge Order (Routine); Ordered 10/08/20 Ordered By: Kenji Yanez Referrals: Kenji Yanez MD [Physician] - 6 Weeks ( Cystoscopy Call for results of biopsy Wednesday) Discharge Diet: Usual diet Discharge Activity: Limit activity as instructed Activity Restrictions/Additional Instructions: 1. Avoid lifting >10 pounds. 2. Self-catheterization as needed for incomplete emptying. 3. We will see you back for cystoscopy in about 6 weeks. 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
[2020-10-08] MEDS: tamsulosin 0.4 mg Capsule PO (08:57)
[2020-10-08] MEDS: pantoprazole DR 40 mg Tablet PO (08:57)
[2020-10-08] MEDS: docusate sodium 100 mg Capsule PO (08:57)
[2020-10-08] MEDS: gabapentin 300 mg Capsule PO (08:58)
[2020-10-08] MEDS: amlodipine 5 mg Tablet PO (08:58)
[2020-10-08] MEDS: atorvastatin 40 mg Tablet 20 MG PO (08:58)
--- NOTE | 2020-10-08 09:52 | PC.CHAP ---
Pastoral Care Encounter/Spiritual Assessment Type of Contact [] Declined under presser visit [] Patient/Family/Request visit [] Outpatient visit [] Follow-up visit [] Physician referral [] Code/Alert [x] Routine visit [] Staff referral [] Actively dying [] Patient sleeping [] Family support [] [] Out of room [] Palliative care [] [] Receiving care in room [] Pre-surgical visit [] Trauma [] Long length of stay [] ICU visit [] Other: Relational/Emotional Strength [x] Patient feels connected with others/family/visitors/staff [] Distress [] Loneliness/isolation [] Abandonment Spirituality of Patient [x] Person of [place] [x] Attends Buddhist of their [place] [x] Believes in Prayer [x] Reads Bible or Mormonism materials [] There are Spiritual issues to be addressed 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 [x] Prayer [x] Active listening [x] Non-anxious presence [x] Spiritual/emotional support [] Crisis/trauma care [] Spiritual counseling [] Bereavement support [] Provided bereavement packet [] Provided Bible/devotional materials [] Provided toy/stuffed animal, coloring book to patient or family member [] Provided Communion [] Anointing/[place] [] Salvation [] Completed spiritual assessment [] Other: Impact on Illness or Injury [] Angry [] Fearful [] Anxious [] Often cries [] Exhaustion [] Unable to work [] Unable to attend buddhism [] Unable to walk/stand [] Unable to read [] Unable to drive [] Unable to eat/drink [] Unable to sleep [] Unable to be with family [] Patient intubated [] Other: Summary Time spent with patient 15 min
[2020-10-08 11:08] VITALS: BP 144/85; PULSE 54; RESP 17; TEMP 37; O2SAT 97
--- NOTE | 2020-10-08 11:18 | PC.NURSE ---
Removed mary after medication was drained. Patient tolerated well. Voided 200mL in urinal. IV discontinued and discharge instructions gave to patient. Son was called to pick patient up per patient's request. Awaiting ride now. Will wheel down via wheelchair.
[2020-10-08 12:33] VITALS: BP 144/85; PULSE 54; RESP 17; TEMP 37; O2SAT 97
== END 2020-10-08 12:00 | disposition home or self-care (01) ==
LOC: MEDSURG 14:32
PROVIDERS: Admitting Provider Urology; PCP Nurse Practitioner Family; Visit Provider Urology
PROC: 0TJB8ZZ Inspection of Bladder, Via Natural or Artificial Opening Endoscopic (ICD-10-PCS; CPT 52000; principal; 2020-10-07 13:25)
PROC: 0TBB8ZZ Excision of Bladder, Via Natural or Artificial Opening Endoscopic (ICD-10-PCS; CPT 52240; 2020-10-07 13:25)
DX: C67.4 Malignant neoplasm of posterior wall of bladder (principal); R33.9 Retention of urine, unspecified; I48.91 Unspecified atrial fibrillation; I10 Essential (primary) hypertension; K21.9 Gastro-esophageal reflux disease without esophagitis; N40.1 Benign prostatic hyperplasia with lower urinary tract symptoms; Z87.891 Personal history of nicotine dependence
CPT/HCPCS: 52240; 36415; 51720; 80048; 88305; 96365; G0378; J1956; J2405; J2704; J2710; J3010; J3490; J7030; J9280

== ENCOUNTER → 2020-10-30 13:17 | Outpatient (BNVA) | payer MEDICARE, MEDICAID, SELFPAY | PROVIDERS: PCP Nurse Practitioner Family; Visit Provider Orthopaedic Surgery | DX: T14.8XXA Other injury of unspecified body region, initial encounter (principal); S80.12XA Contusion of left lower leg, initial encounter; W11.XXXA Fall on and from ladder, initial encounter; X58.XXXA Exposure to other specified factors, initial encounter | CPT/HCPCS: 73590 ==

== ENCOUNTER → 2020-11-19 08:21 | Outpatient (BNVA) | payer MEDICARE, MEDICAID, SELFPAY | PROVIDERS: PCP Nurse Practitioner Family; Visit Provider Urology | DX: C67.4 Malignant neoplasm of posterior wall of bladder (principal); Z20.822 Contact with and (suspected) exposure to COVID-19; C67.1 Malignant neoplasm of dome of bladder; Z11.52 Encounter for screening for COVID-19; I10 Essential (primary) hypertension; R33.9 Retention of urine, unspecified; N40.1 Benign prostatic hyperplasia with lower urinary tract symptoms; N13.8 Other obstructive and reflux uropathy | CPT/HCPCS: 81003; 87635 ==

== ENCOUNTER 2020-11-21 17:04 | Observation (INO) | payer MEDICARE, MEDICAID, SELFPAY ==
[2020-11-20 16:35] VITALS: BMI 29.1
[2020-11-21] VITALS (12 sets, daily range): BP systolic 104–157; BP diastolic 74–99; PULSE 41–95; RESP 16–18; TEMP 36.1–36.6; O2SAT 57–98
--- NOTE | 2020-11-21 13:21 | ECG_ITS ---
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 Measurements Intervals [place] Rate: 51 P: 101 IA: 184 QRS: 1 QRSD: 113 T: 40 QT: 457 QTc: 421 Interpretive Statements SINUS BRADYCARDIA INCOMPLETE RIGHT BUNDLE BRANCH BLOCK [90+ ms QRS DURATION, TERMINAL R IN V1/V2, 40+ ms S IN I/aVL/V4/V5/V6] Compared to ECG 05/30/2020 06:23:44 Sinus arrhythmia no longer present Electronically Signed On 11-22-2020 7:44:39 CDT by Marisela Schuler M.D. [id number]
--- NOTE | 2020-11-21 13:45 | ANES.PREANE2 ---
Pre-Anesthetic Assessment Pre-Anesthetic Assessment: Height/Weight: Height 1.83 m Weight 97.522 kg Temp Pulse Resp BP Pulse Ox 97.9 F 52 L 16 157/99 98 11/21/20 13:31 11/21/20 13:31 11/21/20 13:31 11/21/20 13:31 11/21/20 13:31 Preop Diagnosis: Recurrent bladder cancer Proposed Procedure: Operation Date: 11/21/20 14:45 Proposed Procedures p Cystoscopy 70932 C67.1(Not Applicable) - Kenji Yanez MD s Transurethral Resection Bladder Tumor(Not Applicable) - Kenji Yanez MD Familial anesthetic complications: none Was Beta Yunior taken within 24 hours: Yes Was Clonidine taken within 24 hours: N/A Last intake: Intake Last Liquid Date 11/21/20 Last Liquid Time 07:00 Last Solid Date 11/20/20 Last Solid Time 18:00 Social: Social History: No alcohol and No tobacco Exam: Pre-Anes Outpt Exam: alert, oriented x 3, clear to auscultation bilaterally and regular rate & rhythm Airway: Cervical ROM: WNL MP: 4 Dentition: False CV/HEM: CV/HEM: Afib and HTN GI: GI: GERD Metabolic: Metabolic: Hyperlipidemia Anesthetic Plan: ASA status: 3 Anesthesia: General Risk of > 500 ml blood loss (7ml/kg in children): No PFSH Anesthesia PFSH: Medical History Benign essential HTN Bladder cancer Large papillary tumor right posterior lateral bladder wall resected 11/15/2019. 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 Elevated blood pressure reading Gross hematuria Malignant neoplasm of urinary bladder neck Nerve pain New onset a-fib Personal history of skin cancer Postoperative urinary retention Renal insufficiency Surgical History H/O transurethral destruction of bladder lesion Hx of bilateral cataract extraction Hx of cholecystectomy Hx of hand surgery Family History Mother , AT AGE 100 LUNG CANCER Cancer Father , AT AGE 82 COLON CANCER Cancer Denies family history of Diabetes CAD (coronary artery disease) Clotting disorder Dementia Chronic kidney disease (CKD) Suicide Anesthesia complication Bleeding disorder Lung disease Stroke Social History Smoking and tobacco status: former smoker Alcohol intake: current Alcohol intake frequency: holidays/special occasions only Adopted: No Caregiver/support person: No Lives independently: No Marital status: Current occupational status: retired History of recent travel: No Current gender identity: Male Data Anesthesia Cardiac Studies: No Data to Display
[2020-11-21] MEDS: sodium chloride 0.9% 1,000 ML 30 ML IV (13:58)
--- NOTE | 2020-11-21 15:50 | P.OP_ITS ---
Operative Report Date of procedure: November 21, 2020 Pre-op Diagnosis: Recurrent bladder cancer Post-op diagnosis: same Procedure Done: Cystoscopy, transurethral section of bladder tumor medium Pathology: Bladder tumor dome Surgeon: Beau Anesthesia: General Estimated blood loss: Minimal Urine output: Not measured Complications: None Findings: 3 distinct areas of papillary tumor near the dome of the bladder. All completely resected with bases fully fulgurated. Total area resected/fulgurated was approximately 3-1/2 cm. Condition: stable Disposition: PACU Brief History: Mr. Martins is a very pleasant 69-year-old white male with a history of recurrent bladder cancer with more recent recurrences demonstrating high-grade lamina propria invasive but not muscle invasive disease. He was placed on BCG induction therapy with 6 treatments and has had recurrences post BCG induction. On 10/07/2020 he underwent TURBT that showed high-grade urothelial carcinoma with lamina propria invasion (initial tumor did not show this characteristic). On follow-up cystoscopy prior to reinitiating BCG he was found to have 3 more lesions near the dome. He had received mitomycin postoperatively. These lesions are showing much more significant aggressiveness in the sense of their prolific recurrence as well as increasing grade. He is admitted now for TURBT, mitomycin postoperatively, and likely reinitiation of BCG shortly thereafter. Procedure: After routine preoperative evaluation examination and obtaining of informed consent he was taken to the operating suite on 11/21/2020 where general anesthesia was administered without difficulty after appropriate timeout was performed, SCDs confirmed to be functioning, preoperative antibiotics administered, beta-liz protocol confirmed. Prepped and draped in usual sterile fashion in dorsolithotomy position paying careful attention to avoiding pressure points. 21 Canadian cystoscope with 30 degree lens was introduced into the urethral meatus and advanced into the bladder under videoscopy. The bladder was systematically examined with both 30 and 70 degree lenses. Findings confirmed clinic findings. Urethra was then dilated with [place] sounds and easily accommodated 30 Canadian. 2% lidocaine jelly was instilled into the urethra and then a well-lubricated 25 Canadian continuous-flow resectoscope sheath with visual obturator was advanced into the bladder without difficulty. The gyrus bipolar system was utilized for resection with the super loop and then the button probe was used for complete fulguration of the base. Deep sampling was conducted. The specimens were sent for pathologic evaluation labeled as dome . Final inspection revealed good hemostasis and no residual specimens within the bladder. Bladder was then drained with a 20 Canadian three-way Bentley catheter with the irrigation port plugged. Tolerated procedure well without complications and was awakened in the operating room and returned to recovery in stable condition. Associated Problem List Diagnoses (1) Cancer of dome of urinary bladder: (2) Benign essential HTN: (3) Incomplete bladder emptying:
--- NOTE | 2020-11-21 15:50 | W.PM.OPSUD ---
Surgery/Procedure H&P Update DATE OF PROCEDURE: November 21, 2020 DATE H&P PERFORMED: 11/19/20 H&P UPDATE INFORMATION: I have reviewed H&P completed within last 30 days, I have examined patient prior to procedure, No changes to prior documentation and H[place] is [place] [facility] date indicated PREOP DIAGNOSIS: Recurrent bladder cancer PLANNED PROCEDURE: Operation Date: 11/21/20 14:45 Proposed Procedures p Cystoscopy 79755 C67.1(Not Applicable) - Kenji Yanez MD s Transurethral Resection Bladder Tumor(Not Applicable) - Kenji Yanez MD
[2020-11-21] MEDS: levofloxacin-dextrose 5 % 500 MG/100 ML PREMIX 100 MG IV (16:01)
[2020-11-21] MEDS: lidocaine 2% Urojet 20 mL (16:24)
[2020-11-21] MEDS: D5-NS 0.45% + KCL 20 mEq 20 MEQ/1,000 ML BAG 30 MEQ IV (17:34)
--- NOTE | 2020-11-21 18:00 | ANE.PACU2 ---
Inpatient post-anesthesia follow up: Airway intact: Yes Vital signs: Temperature 97.9 F Pulse Rate 54 Respiratory Rate 17 Blood Pressure 121/82 Pulse Oximetry 98 Oxygen Delivery Me thod [ Room Air Current Rate & Del josselin] Oxygen Delivery Me thod Room Air Oxygen Flow Rate Fraction of Inspir ed Oxygen Hydration adequate: Yes Nausea and vomiting: No Pain level: 2 Mental status: Baseline
--- NOTE | 2020-11-21 18:58 | PC.NURSE ---
patient's heart rate has remained in the 40's-50's since received from PACU, Dr. Yanez on the floor at this time, verbal orders received to hold evening dose of sotalol. patient placed on telemetry for continuous monitoring. patients urine has remained clear yellow in color, no clots or bladder distention noted. no manual irrigation needed. pt resting in bed at this time, call light with in reach.
[2020-11-21] MEDS: atorvastatin 40 mg Tablet 20 MG PO (21:12)
[2020-11-21] MEDS: trazodone 100 mg Tablet PO (21:12)
[2020-11-21] MEDS: gabapentin 300 mg Capsule PO (21:12)
[2020-11-21] MEDS: latanoprost 0.005% Op Soln 2.5 mL Btl 1 DROP EYE-BOTH (21:13)
[2020-11-22] VITALS (7 sets, daily range): BP systolic 115–125; BP diastolic 62–82; PULSE 50–59; RESP 17–18; TEMP 36.4–36.7; O2SAT 92–98
--- NOTE | 2020-11-22 07:03 | P.DS_ITS ---
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 Was found to have the expected lesions in the dome of the bladder at time of surgery and these were completely resected and surrounding area fulgurated. Path is pending at time of dictation. On postoperative day #1 he underwent mitomycin instillation into the bladder (40 mg in 40 cc normal saline). Tolerated well. The mitomycin was drained after approximately 1 hour and the catheter was removed. He voided and a PVR was checked to make sure that he was not having significant bleeding. He does not empty as well as he should have baseline so he was restarted on self-catheterization as a PVR 4-5 times per day for discharge. Instructed to be able to stop the CIC when PVRs are acceptable generally less than 100 cc. Plans were made to review pathology report next week Anticipate restarting BCG within the month Encouraged him to be quick to self cath if there is any question about adequate emptying moving forward. Pending path report. Physical Exam Const: COMMON NORMALS: no acute distress, alert and well nourished GENERAL APPEARANCE: well kempt and well developed ORIENTATION/CONSCIOUSNESS: not confused HENMT: COMMON NORMALS: normocephalic and atraumatic HEAD & SCALP: normocephalic and atraumatic Eye: COMMON NORMALS: conjunctivae normal and no scleral icterus CONJUNCTIVA: Yes conjunctivae normal Neck/C-Spine: COMMON NORMALS: full ROM GENERAL: Yes normal visual inspection Resp: COMMON NORMALS: normal respiratory effort EFFORT & INSPECTION: No labored and No Actively coughing Neuro: SENSORIUM/ORIENTATION: Yes alert Psych: COMMON NORMALS: mental status grossly normal APPEARANCE: Yes grossly normal and Yes well kempt ATTITUDE: Yes calm and Yes engaged Skin: COMMON NORMALS: no rashes or lesions noted and no jaundice GENERAL SKIN EXAM: no rashes or lesions noted Urinary Catheter Management^: 3-way Urethral CBI: Cath Placed During This Visit: yes Reason for Continuing Indwelling Catheter: Perioperative Use in Selected Surgeries Urinary Catheter Date of Insertion: 11/21/20 Urinary Catheter Time of Insertion: 16:00 Discharge Data Data Completed and Pending: Pending at discharge Category Date Time Status Pathology: Surgic al [PTH] Routine Pth 11/21/20 16:47 Ordered Vitals: Last Vital Signs Temp 97.8 F 11/22/20 04:00 Pulse 59 L 11/22/20 06:00 Resp 18 11/22/20 04:00 BP 115/62 11/22/20 04:00 Pulse Ox 92 11/22/20 04:00 Discharge Plan Discharge Patient Disposition: Home Condition: Stable Prescriptions: Continued omeprazole 20 mg capsule,delayed release(DR/EC) 20 mg PO DAILY RF: 0 trazodone 100 mg tablet 100 mg PO BEDTIME RF: 0 lovastatin 20 mg tablet 20 mg PO BEDTIME RF: 0 latanoprost 0.005 % drops 1 drop ophthalmic (eye) BEDTIME RF: 0 gabapentin 600 mg tablet 300 mg PO TID RF: 0 sotalol [Betapace] 80 mg tablet 40 mg PO BID 30 Days Qty: 30 RF: 5 amlodipine 5 mg tablet 5 mg PO BEDTIME RF: 0 Flomax 0.4 mg capsule 0.8 mg PO BEDTIME RF: 0 Held meloxicam 15 mg tablet 15 mg PO DAILY RF: 0 Hold Instructions: Resume on 11/29/20. aspirin 325 mg tablet 325 mg PO DAILY Qty: 30 RF: 0 Hold Instructions: Resume on 11/29/20. Discharge Diet: Usual diet Discharge Activity: Limit activity as instructed Activity Restrictions/Additional Instructions: 1. Avoid heavy lifting (>10 pounds) for 2 to 3 weeks. 2. Discharge Attestations Time Spent in Discharge Care*: greater than 30 min Status at Discharge: Cognitive status at discharge: cognitively intact , Behavioral status at discharge: cooperative , Quality Metrics Clinical Quality Measures During this hospital stay, did patient experience: None Coding Level of Care Code Acute Chg FW DC note Exam Detailed Diagnoses Cancer of dome of urinary bladder C67.1 Benign essential HTN I10 Incomplete bladder emptying R33.9
[2020-11-22] MEDS: gabapentin 300 mg Capsule PO (07:22)
[2020-11-22] MEDS: pantoprazole DR 40 mg Tablet PO (07:22)
--- NOTE | 2020-11-22 07:23 | PM.MISC ---
Miscellaneous Note Note: Procedure: Intravesical mitomycin instillation 40 mg of mitomycin and 40 cc normal saline was instilled into the bladder without difficulty and tolerated well. Maintained for 1 hour then drained.
--- NOTE | 2020-11-22 07:42 | PC.NURSE ---
Nurse Notified of low heart rate.
--- NOTE | 2020-11-22 11:09 | PC.NURSE ---
Bentley was discontinued at 0920 this am, pt voided 300 mL once at 1030, bladder scan showed 370 left in bladder. orders received for straight cath, 400 drained out of bladder at this time. urine clear with no clots. Dr. Yanez notified. No new orders received.
[2020-11-22 11:12] LABS: Glucose Point of Care 105 mg/dL (70-110)
== END 2020-11-22 15:11 | disposition home or self-care (01) ==
LOC: MEDSURG 17:05
PROVIDERS: Admitting Provider Urology; PCP Nurse Practitioner Family; Visit Provider Urology
PROC: 0TJB8ZZ Inspection of Bladder, Via Natural or Artificial Opening Endoscopic (ICD-10-PCS; CPT 52000; principal; 2020-11-21 14:45)
PROC: 0TBB8ZZ Excision of Bladder, Via Natural or Artificial Opening Endoscopic (ICD-10-PCS; CPT 52235; 2020-11-21 14:45)
DX: C67.1 Malignant neoplasm of dome of bladder (principal); I10 Essential (primary) hypertension; R33.9 Retention of urine, unspecified; I48.91 Unspecified atrial fibrillation; K21.9 Gastro-esophageal reflux disease without esophagitis; E78.5 Hyperlipidemia, unspecified; N40.1 Benign prostatic hyperplasia with lower urinary tract symptoms; N13.8 Other obstructive and reflux uropathy; Z87.891 Personal history of nicotine dependence
CPT/HCPCS: 51720; 52235; 36416; 82962; 88305; 93005; G0378; J1100; J1956; J2405; J2704; J2710; J3010; J3490; J7030; J9280

== ENCOUNTER → 2021-01-10 10:52 | Outpatient (BNVA) | payer MEDICARE, MEDICAID, SELFPAY | PROVIDERS: PCP Nurse Practitioner Family; Visit Provider Urology | DX: C67.2 Malignant neoplasm of lateral wall of bladder (principal); R33.9 Retention of urine, unspecified; C67.1 Malignant neoplasm of dome of bladder | CPT/HCPCS: 81003 ==

== ENCOUNTER → 2021-01-24 10:31 | Outpatient (BNVA) | payer MEDICARE, MEDICAID, SELFPAY | PROVIDERS: PCP Nurse Practitioner Family; Visit Provider Urology | DX: C67.1 Malignant neoplasm of dome of bladder (principal) | CPT/HCPCS: 81003 ==

== ENCOUNTER → 2021-03-07 09:34 | Outpatient (BNVA) | payer MEDICARE, MEDICAID, SELFPAY | PROVIDERS: PCP Nurse Practitioner Family; Visit Provider Urology | DX: C67.1 Malignant neoplasm of dome of bladder (principal); C67.2 Malignant neoplasm of lateral wall of bladder; D49.59 Neoplasm of unspecified behavior of other genitourinary organ | CPT/HCPCS: 81003; 87635 ==

== ENCOUNTER 2021-03-10 13:49 | Day surgery (SDC) | payer MEDICARE, MEDICAID, SELFPAY ==
[2021-03-07 17:16] VITALS: BMI 29.8
[2021-03-10] VITALS (7 sets, daily range): BP systolic 117–144; BP diastolic 72–107; PULSE 53–70; RESP 14–20; TEMP 36.3–36.4; O2SAT 95–100
--- NOTE | 2021-03-10 14:24 | ANES.PREANE2 ---
Pre-Anesthetic Assessment Pre-Anesthetic Assessment: Height/Weight: Height 1.83 m Weight 99.79 kg Temp Pulse Resp BP Pulse Ox 97.5 F L 53 L 18 144/107 100 03/10/21 14:14 03/10/21 14:14 03/10/21 14:14 03/10/21 14:14 03/10/21 14:14 Preop Diagnosis: Recurrent transitional cell carcinoma, urethra Proposed Procedure: Operation Date: 03/10/21 15:20 Proposed Procedures p Cystoscopy 20490 [id number] C49.59 C67.9(Not Applicable) - Kenji Yanez MD s TRANSURETHRAL RESECTION OF URETHRAL TUMOR(Not Applicable) - Kenji Yanez MD Familial anesthetic complications: none Was Beta Yunior taken within 24 hours: Yes Was Clonidine taken within 24 hours: N/A Last intake: Intake Last Liquid Date 03/11/21 Last Liquid Time 10:00 Last Solid Date 03/10/21 Last Solid Time 00:00 Social: Social History: No alcohol and No tobacco Airway: Cervical ROM: WNL MP: 3 Dentition: False CV/HEM: CV/HEM: Afib (on sotalol), Arrythmia (bradycardia) and HTN Comments: ECHO CONCLUSIONS Mild diffuse hypokinesia left ventricle ejection fraction of around 50%. Both atria, upper limit of normal size. Mild mitral valve regurgitation. Estimated pulmonary artery peak systolic pressure 22 mmHg There are no intracardiac masses. There is no pericardial effusion. No previous study is available for comparison. Metabolic: Metabolic: Hyperlipidemia Anesthetic Plan: ASA status: 3 Anesthesia: General Risk of > 500 ml blood loss (7ml/kg in children): No PFSH Anesthesia PFSH: Medical History Benign essential HTN Bladder cancer Large papillary tumor right posterior lateral bladder wall resected 11/15/2019. 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 Elevated blood pressure reading Gross hematuria Malignant neoplasm of urinary bladder neck Nerve pain New onset a-fib Personal history of skin cancer Postoperative urinary retention Renal insufficiency Surgical History H/O transurethral destruction of bladder lesion Hx of bilateral cataract extraction Hx of cholecystectomy Hx of hand surgery Family History Mother , AT AGE 100 LUNG CANCER Cancer Father , AT AGE 82 COLON CANCER Cancer Denies family history of Diabetes CAD (coronary artery disease) Clotting disorder Dementia Chronic kidney disease (CKD) Suicide Anesthesia complication Bleeding disorder Lung disease Stroke Social History Alcohol intake: current Alcohol intake frequency: holidays/special occasions only Adopted: No Caregiver/support person: No Lives independently: No Marital status: Current occupational status: retired History of recent travel: No Current gender identity: Male Data Anesthesia Cardiac Studies: No Data to Display
[2021-03-10] MEDS: sodium chloride 0.9% 1,000 ML 30 ML IV (14:30)
--- NOTE | 2021-03-10 16:28 | W.PM.OPSUD ---
Surgery/Procedure H&P Update DATE OF PROCEDURE: March 10, 2021 DATE H&P PERFORMED: 03/07/21 H&P UPDATE INFORMATION: I have reviewed H&P completed within last 30 days, I have examined patient prior to procedure, No changes to prior documentation and H&P is in [facility]MR on date indicated PREOP DIAGNOSIS: Recurrent transitional cell carcinoma, urethra PLANNED PROCEDURE: Operation Date: 03/10/21 15:20 Proposed Procedures p Cystoscopy 35157 [id number] C49.59 C67.9(Not Applicable) - Kenji Yanez MD s TRANSURETHRAL RESECTION OF URETHRAL TUMOR(Not Applicable) - Kenji Yanez MD
--- NOTE | 2021-03-10 16:40 | P.OP_ITS ---
Operative Report Date of procedure: March 10, 2021 Pre-op Diagnosis: Recurrent transitional cell carcinoma, urethra Post-op diagnosis: same Procedure Done: 1. Cystoscopy, transurethral resection of urethral tumor Pathology: Urethral tumor Surgeon: Beau Anesthesia: General Estimated blood loss: Less than 50 cc Urine output: Not measured Complications: None Findings: Papillary lesion with wide base and what appears to be submucosal involvement located in the mid urethra at the roughly 10 o'clock position. Condition: stable Disposition: PACU Brief History: Mr. Martins is a very pleasant 70-year-old white male with history of high-grade lamina propria invasive TCCA and carcinoma in situ who on routine surveillance cystoscopy as part of BCG induction followed by maintenance program was found to have a papillary friable lesion in the urethra at the 10 o'clock position in roughly mid urethra. He is admitted now for resection of that lesion. Procedure: After routine preoperative evaluation examination and obtaining of informed consent he was taken to the operating suite on 03/10/2021 where general anesthesia was administered without difficulty after appropriate timeout was performed, SCDs confirmed to be functioning, preoperative antibiotics administered, beta-liz protocol confirmed. Prepped and draped in usual sterile fashion in dorsolithotomy position paying careful attention to avoiding pressure points. 21 Surinamese cystoscope with 30 degree lens was introduced into the urethra meatus and advanced into the bladder under videoscopy. Bladder was systematically examined along with the urethra. The clinic findings were confirmed. Cold cup biopsy forceps were then utilized to resect the tumor deep into the wall of the urethra. All visible tumor was resected. A very small Bugbee cautery probe was then used to fulgurate the bleeding area without cauterizing normal mucosa. Care was made to not circumferentially cauterize. Inspection showed good hemostasis. The scope was then advanced up into the bladder a flexible tip guidewire was passed into the bladder and curled in the bladder and then the scope was removed. A 22 Surinamese [place] tip catheter that was then easily advanced into the bladder over the guidewire the balloon inflated and after confirmation of good function of the balloon the wire was removed. There is no significant bleeding around the catheter in the efflux was clear. Catheter was placed to dependent drainage and the procedure was completed. He tolerated procedure well without complications and was awakened in the opera ting room and returned to PACU in stable condition. PLANS: 1. If no significant oozing from around the catheter he can be discharged home for outpatient recovery. 2. Follow-up in 1 week for path report check and voiding trial.
--- NOTE | 2021-03-10 17:00 | ANE.PACU2 ---
Inpatient post-anesthesia follow up: Airway intact: Yes Vital signs: Temperature 97.6 F Pulse Rate 70 Respiratory Rate 18 Blood Pressure 121/76 Pulse Oximetry 98 Oxygen Delivery Me thod Room Air Oxygen Flow Rate 8 Fraction of Inspir ed Oxygen Hydration adequate: Yes Nausea and vomiting: No Pain level: 2 Mental status: Baseline
== END 2021-03-10 18:39 | disposition home or self-care (01) ==
LOC: OR 13:57 → MEDSURG 16:42 → OR 17:58
PROVIDERS: PCP Nurse Practitioner Family; Visit Provider Urology
PROC: 0TJB8ZZ Inspection of Bladder, Via Natural or Artificial Opening Endoscopic (ICD-10-PCS; CPT 52000; principal; 2021-03-10 15:15)
PROC: 0TBB8ZZ Excision of Bladder, Via Natural or Artificial Opening Endoscopic (ICD-10-PCS; CPT 53220; 2021-03-10 15:15)
DX: C67.9 Malignant neoplasm of bladder, unspecified (principal); I48.91 Unspecified atrial fibrillation; I10 Essential (primary) hypertension; E78.5 Hyperlipidemia, unspecified; N40.0 Benign prostatic hyperplasia without lower urinary tract symptoms
CPT/HCPCS: 53220; 88305; 88307; J2405; J2704; J3010; J3490; J7030

== ENCOUNTER → 2021-05-22 10:18 | Outpatient (BNVA) | payer MEDICARE, MEDICAID, SELFPAY | PROVIDERS: PCP Nurse Practitioner Family; Visit Provider Urology | DX: C67.1 Malignant neoplasm of dome of bladder (principal) | CPT/HCPCS: 81003 ==

== ENCOUNTER → 2021-08-14 08:16 | Outpatient (BNVA) | payer MEDICARE, MEDICAID, SELFPAY | PROVIDERS: PCP Nurse Practitioner Family; Visit Provider Urology | DX: C67.1 Malignant neoplasm of dome of bladder (principal); R33.9 Retention of urine, unspecified | CPT/HCPCS: 81003 ==

== ENCOUNTER → 2021-11-27 14:57 | Outpatient (BNVA) | payer MEDICARE, MEDICAID, SELFPAY | PROVIDERS: PCP Nurse Practitioner Family; Visit Provider Urology | DX: C68.0 Malignant neoplasm of urethra (principal); C67.9 Malignant neoplasm of bladder, unspecified; C67.2 Malignant neoplasm of lateral wall of bladder | CPT/HCPCS: 52000; 99213 ==

== ENCOUNTER → 2022-01-02 07:40 | Outpatient (BNVA) | payer MEDICARE, MEDICAID, SELFPAY | PROVIDERS: PCP Nurse Practitioner Family; Visit Provider Urology | DX: C68.0 Malignant neoplasm of urethra (principal) | CPT/HCPCS: 99214 ==

== ENCOUNTER 2022-01-05 05:41 | Day surgery (SDC) | payer MEDICARE, MEDICAID, SELFPAY ==
[2022-01-02 13:54] VITALS: BMI 29.9
[2022-01-05] VITALS (8 sets, daily range): BP systolic 99–134; BP diastolic 63–76; PULSE 50–71; RESP 13–18; TEMP 36.1–36.6; O2SAT 94–100
--- NOTE | 2022-01-05 06:02 | ECG_ITS ---
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 Measurements Intervals Thorp Rate: 51 P: -43 DE: 111 QRS: 15 QRSD: 109 T: 49 QT: 446 QTc: 413 Interpretive Statements SINUS BRADYCARDIA WITH SHORT DE INTERVAL Compared to ECG 11/21/2020 13:40:15 Short DE interval now present Incomplete right bundle-branch block no longer present Electronically Signed On 01-05-2022 19:43:49 CDT by Lonny Irwin M.D. [id number]
--- NOTE | 2022-01-05 06:03 | P.HPUD_ITS ---
Surgery/Procedure H&P Update DATE OF PROCEDURE: January 05, 2022 DATE H&P PERFORMED: 01/02/22 H&P UPDATE INFORMATION: I have reviewed H&P completed within last 30 days, I have examined patient prior to procedure, No changes to prior documentation and H&P is in [facility] EMR on date indicated PREOP DIAGNOSIS: Recurrent transitional cell carcinoma urethra/bladder PLANNED PROCEDURE: Operation Date: 01/05/22 07:00 Proposed Procedures p CYSTOSCOPY TRANSURETHRAL RESECTION OF URETHRAL BLADDER TUMOR 17311,C67.9(Not Applicable) - Kenji Yanez MD s Transurethral Resection Bladder Tumor(Not Applicable) - Kenji Yanez MD
[2022-01-05] MEDS: sodium chloride 0.9% 1,000 ML 30 ML IV (06:15)
[2022-01-05 06:44] LABS: Blood Urea Nitrogen 14 mg/dL (8-23); Calcium 8.8 mg/dL (8.5-10.5); Carbon Dioxide 28 mmol/L (22-29); Chloride 103 mmol/L (98-107); Glucose 93 mg/dL (65-115); Osmolality Calculated 288 mOsm/kg (285-295); Sodium 139 mmol/L (136-145)
--- NOTE | 2022-01-05 06:50 | PM.OP ---
Operative Report Date of procedure: January 05, 2022 Pre-op diagnosis: Recurrent transitional cell carcinoma urethra/bladder Post-op diagnosis: Recurrent transitional cell carcinoma urethra/bladder Procedure done: Cystoscopy, transurethral resection of urethral TCCA Pathology: 1. Urethral tumor sample 2. 2 small papillary bladder tumor recurrences Surgeon: Beau Anesthesia: General Estimated blood loss: Minimal Urine output: Not measured Complications: None Findings: 1. 2 small papillary bladder tumor recurrences on the posterior floor. 2. Papillary recurrence at the distal urethral area at the 12 o'clock position. Both areas completely resected/fulgurated. Brief History: Mr. Martins is a very pleasant 71-year-old white male with a history of refractory TCCA of the bladder including carcinoma in situ and later development of TCCA of the urethra. Has undergone multiple resections of the urethral lesions with recurrence. Ultimately underwent partial urethrectomy and perineal urethrostomy but on follow-up routine surveillance cystoscopy was found to have a recurrence just inside the urethral opening. He is admitted now for local resection. I reviewed cystectomy as the next step Procedure: After routine preoperative evaluation examination and obtaining of informed consent he was taken to the operating suite on 01/05/2022 where general anesthesia was administered without difficulty after appropriate timeout was performed, SCDs confirmed to be functioning, preoperative antibiotics administered, beta-liz protocol confirmed. Prepped and draped in usual sterile fashion in dorsolithotomy position paying careful attention to avoiding pressure points. An attempt at passing a 17 Salvadorean cystoscope through the perineal urethrostomy was unsuccessful. A 7 Salvadorean offset semirigid rigid ureteroscope was advanced to assess the status of the urethra. There was a distal urethral narrowing and this was then dilated with 10 through 22 Salvadorean Sofía sounds without difficulty. A couple of passages of the ureteroscope in the midst of this dilation were performed to assure no loss of tract or injury. None was seen 21 Salvadorean cystoscope with 30 degree lens was introduced into the urethra meatus and advanced into the bladder without difficulty. Bladder was systematically examined both 30 and 70 degree lens scopes. Urethral lesion was confirmed. In addition to the urethral lesion, there were 2 small papillary tumors on the posterior floor the bladder. Cold cup biopsy forceps were utilized to excise the to posterior bladder wall/floor tumors completely. Bugbee cautery probe was utilized to fulgurate the basis for complete hemostasis. The cold cup biopsy forceps were then also utilized to sample/excise the urethral lesion with deep biopsies performed. The lesion was fulgurated to obliteration. The bladder was then drained with a 22 Salvadorean Bentley catheter for tamponade effect. Efflux was clear. There was no bleeding around the catheter. Catheter placed to dependent drainage and the procedure was completed. Tolerated procedure well without complications and was awakened in the operating room and returned to cover him in stable condition. PLANS: 1. Anticipate discharge from outpatient surgery if his urine remains clear 2. Maintain Bentley catheter for 1 week and follow-up in clinic for catheter removal, postoperative cystoscopy to confirm no residual lesions after adequate dilation with the catheter.
[2022-01-05] MEDS: levofloxacin-dextrose 5 % 500 MG/100 ML PREMIX 100 MG IV (06:51)
[2022-01-05 06:52] LABS: Anion Gap 12.2 (5-19); Potassium 4.2 mmol/L (3.5-5.1)
--- NOTE | 2022-01-05 06:53 | ANES.PREANE2 ---
Pre-Anesthetic Assessment Height/Weight: Height 1.83 m Weight 100.244 kg Temp Pulse Resp BP Pulse Ox 97.7 F 51 L 16 134/69 98 01/05/22 06:00 01/05/22 06:00 01/05/22 06:00 01/05/22 06:00 01/05/22 06:00 Preop Diagnosis: Recurrent transitional cell carcinoma urethra/bladder Operation Date: 01/05/22 07:00 Proposed Procedures p CYSTOSCOPY TRANSURETHRAL RESECTION OF URETHRAL BLADDER TUMOR 10802,C67.9(Not Applicable) - Kenji Yanez MD s Transurethral Resection Bladder Tumor(Not Applicable) - Kenji Yanez MD Familial anesthetic complications: None Was Beta Yunior taken within 24 hours: Yes Was Clonidine taken within 24 hours: N/A Last intake: Intake Last Liquid Date 01/05/22 Last Liquid Time 05:00 Last Solid Date 01/05/22 Last Solid Time 17:00 Social No alcohol and No tobacco (h/o smoking) Exam alert, oriented x 3 and regular rate & rhythm rhonchi Airway Submandibular: within normal limits Cervical ROM: within normal limits Mallampati: Class II Dentition: false Pulmonary Chronic Obstructive Pulmonary Disease CV/HEM Arrythmia (oli) and Hypertension Chronic Renal Insufficiency bladder CA GI Gastroesophageal Reflux Disease Anesthetic Plan ASA status: 3 Anesthesia: General Medications/Allergies Home Medications Medication Instructions Recorded Confirmed Last Taken Type latanoprost 0.005 % eye drops 1 drop OPHTHALMIC (EYE) BEDTIME 11/03/19 01/02/22 03/09/21 History lovastatin 20 mg tablet 20 mg PO BEDTIME 11/03/19 01/05/22 01/04/22 History meloxicam 15 mg tablet 15 mg PO DAILY 11/03/19 01/02/22 01/01/22 History omeprazole 20 mg capsule,delayed 20 mg PO DAILY 11/03/19 01/05/22 01/04/22 History release gabapentin 600 mg tablet 300 mg PO TID tab 08/05/20 01/02/22 03/09/21 History furosemide 40 mg tablet (Lasix) 40 mg PO DAILY PRN 30 Days #30 tab 01/28/21 01/02/22 03/09/21 Rx potassium chloride 20 mEq 20 meq PO DAILY PRN 30 Days #30 tab 01/28/21 01/02/22 Unknown Rx tablet,extended release trazodone 100 mg tablet 150 mg PO BEDTIME tab 07/30/21 01/05/22 01/04/22 History tamsulosin 0.4 mg capsule (Flomax) 0.4 mg PO BID #180 cap 09/03/21 01/05/22 01/04/22 Rx amlodipine 5 mg tablet 5 mg PO BEDTIME #90 tab 12/04/21 01/05/22 01/04/22 Rx sotalol 80 mg tablet 40 mg PO BID 01/02/22 01/05/22 01/05/22 History Allergies Allergy/AdvReac Type Severity Reaction Status Date / Time No Known Allergies Allergy Verified 01/02/22 07:55 Current Medications Generic Name Dose Route Start Last Admin Trade Name Freq PRN Reason Stop Dose Admin Sodium Chloride 1,000 mls @ 30 mls/hr 01/05/22 06:15 01/05/22 06:15 Sodium Chloride 0.9% IV 01/06/22 06:14 30 mls/hr .Q24H RUBEN Administration PFSH Anesthesia Medical History Benign essential HTN Bladder cancer Large papillary tumor right posterior lateral bladder wall resected 11/15/2019. 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 Elevated blood pressure reading Gross hematuria Malignant neoplasm of urinary bladder neck Nerve pain New onset a-fib Personal history of skin cancer Postoperative urinary retention Primary cancer of urethra Renal insufficiency Surgical History H/O transurethral destruction of bladder lesion Hx of bilateral cataract extraction Hx of cholecystectomy Hx of hand surgery Family History Mother , AT AGE 100 LUNG CANCER Cancer Father , AT AGE 82 COLON CANCER Cancer Denies family history of Diabetes CAD (coronary artery disease) Clotting disorder Dementia Chronic kidney disease (CKD) Suicide Anesthesia complication Bleeding disorder Lung disease Stroke Social History Smoking and tobacco status: former smoker Alcohol intake: current Alcohol intake frequency: holidays/special occasions only Adopted: No Caregiver/support person: No Lives independently: No Marital status: Current occupational status: retired History of recent travel: No Current gender identity: Male Data Anesthesia : 01/05/22 06:17 BMP 01/05/22 06:17 Sodium 139 Potassium 4.2 Chloride 103 Carbon Dioxide 28 BUN 14 Creatinine 1.0 Glucose 93 Calcium 8.8 Cardiac Studies: Echocardiogram Ultrasound 05/27/20 Transesophageal Echocardiogram 05/28/20 Cardiac Event Monitor 08/04/21
[2022-01-05] MEDS: lidocaine 2% Urojet 20 mL TOPICAL (07:17)
--- NOTE | 2022-01-05 09:06 | SUR.PHASEII ---
[id number] called urology for follow up appt x10 with no answer,will inform the pt of this
--- NOTE | 2022-01-05 16:04 | ANE.PACU2 ---
Inpatient post-anesthesia follow up: Airway intact: Yes Vital signs: Temperature 97.8 F Pulse Rate 50 Respiratory Rate 18 Blood Pressure 118/67 Pulse Oximetry 100 Oxygen Delivery Me thod Room Air Oxygen Flow Rate 2 Fraction of Inspir ed Oxygen Hydration adequate: Yes Nausea and vomiting: No Pain level: 2 Mental status: Baseline
== END 2022-01-05 09:30 | disposition home or self-care (01) ==
PROVIDERS: PCP Nurse Practitioner Family; Visit Provider Urology
PROC: 0TJB8ZZ Inspection of Bladder, Via Natural or Artificial Opening Endoscopic (ICD-10-PCS; CPT 52000; principal; 2022-01-05 07:00)
PROC: 0TBB8ZZ Excision of Bladder, Via Natural or Artificial Opening Endoscopic (ICD-10-PCS; CPT 52235; 2022-01-05 07:00)
DX: C68.0 Malignant neoplasm of urethra (principal); I10 Essential (primary) hypertension; N40.1 Benign prostatic hyperplasia with lower urinary tract symptoms; J44.9 Chronic obstructive pulmonary disease, unspecified; K21.9 Gastro-esophageal reflux disease without esophagitis; Z87.891 Personal history of nicotine dependence
CPT/HCPCS: 52235; 36415; 80048; 88305; 93005; J1100; J1956; J2370; J2405; J2704; J2710; J3010; J3490; J7030

== ENCOUNTER → 2022-01-14 14:03 | Outpatient (BNVA) | payer MEDICARE, MEDICAID, SELFPAY | PROVIDERS: PCP Nurse Practitioner Family; Visit Provider Urology | DX: C68.0 Malignant neoplasm of urethra (principal); C67.2 Malignant neoplasm of lateral wall of bladder | CPT/HCPCS: 52000 ==

== ENCOUNTER → 2022-02-03 13:25 | Outpatient (BNVA) | payer MEDICARE, MEDICAID, SELFPAY | PROVIDERS: PCP Nurse Practitioner Family; Visit Provider Internal Medicine Cardiovascular Disease | DX: I48.91 Unspecified atrial fibrillation (principal); R06.02 Shortness of breath; R00.1 Bradycardia, unspecified; I10 Essential (primary) hypertension; N28.9 Disorder of kidney and ureter, unspecified; M79.89 Other specified soft tissue disorders; Z87.891 Personal history of nicotine dependence | CPT/HCPCS: 36415; 80048; 83880; 99214 ==

== ENCOUNTER → 2022-03-12 13:06 | Outpatient (BNVA) | payer MEDICARE, MEDICAID, SELFPAY | PROVIDERS: PCP Nurse Practitioner Family; Visit Provider Urology | DX: C68.0 Malignant neoplasm of urethra (principal); C67.2 Malignant neoplasm of lateral wall of bladder | CPT/HCPCS: 52224; 99213 ==

== ENCOUNTER 2022-05-25 14:15 | Oncology outpatient (recurring) (ONCR) | payer MEDICARE, MEDICAID, SELFPAY ==
--- NOTE | 2022-05-20 09:11 | N.ONRAD NP_ITS ---
Radiation Oncology Consultation Patient Name: Tomás Martins Date of : 1950 Date of Service: 05/20/2022 Attending Physician: Emre Ivan M.D. Tomás Martins was seen in consultation this morning at the request of Pepe Payne M.D. for consideration of palliative cranial radiotherapy in the management of metastatic non-small cell lung cancer with brain metastases. He was initially evaluated at the [facility] in [place], [place] for dyspnea. A thoracic CT scan completed on March 24, 2022 identified a 4.4 cm x 3.1 centimeters right upper lobe lesion, bilateral hilar adenopathy, bulky mediastinal adenopathy, osseous disease involving the right third and fourth ribs. A neck CT scan demonstrated bilateral cervical and supraclavicular lymphadenopathy. A PET scan obtained on 2021 revealed FDG activity within bilateral cervical lymph nodes, mediastinal and bilateral hilar lymph nodes, a right upper lobe pulmonary nodule, a right pleural effusion, large pericardial effusion, expansile lytic lesion involving the left fourth rib and left T4 transverse process, right iliac wing, right ischium, C3, T12, L5, left femur, and left tibia. A pericardiocentesis performed on April 14, 2022 diagnosed metastatic adenocarcinoma. An ultrasound-guided core needle biopsy of a left level III cervical lymph node obtained on May 07, 2022 demonstrated metastatic adenocarcinoma with a micropapillary pattern consistent with a lung primary. The tumor cells were 50% positive for PDL???L1. An MRI of the brain (independently reviewed in [facility]) ordered on May 12, 2022 identified innumerable intracranial metastatic lesions. The patient was evaluated for palliative cranial radiotherapy. Following a discussion concerning Mr. Matias???s MRI scan, an attempt at palliative cranial radiotherapy is warranted. He was prescribed a glucocorticoid for cerebral edema. I anticipate a 2-week course of treatment. The potential toxicities of cranial radiotherapy were reviewed. The patient has verbalized understanding would like to proceed as recommended. Signed by: Dr. Emre Ivan 05/20/2022 9:09:42 AM
--- NOTE | 2022-05-21 | CT_ITS ---
Radiation Therapy Planning CT images; total exam DLP: 346. 38mGy-cm MTDD
== END 2022-05-25 23:59 | disposition home or self-care (01) ==
PROVIDERS: PCP Nurse Practitioner Family; Visit Provider Radiology Radiation Oncology
DX: Z51.0 Encounter for antineoplastic radiation therapy (principal); C34.11 Malignant neoplasm of upper lobe, right bronchus or lung; C77.8 Secondary and unspecified malignant neoplasm of lymph nodes of multiple regions
CPT/HCPCS: 77280; 77290; 77295; 77300; 77334; 77412; 99205

== ENCOUNTER 2022-06-03 14:18 | Oncology outpatient (recurring) (ONCR) | payer MEDICARE, MEDICAID, SELFPAY ==
--- NOTE | 2022-05-28 14:45 | ONCRAD TMN_ITS ---
Radiation Oncology Treatment Management Note Patient Name: oTmás Martins Date of : 1950 Date of Service: 05/28/2022 Attending Physician: Emre Ivan M.D. Tomás Martins is a 71 year old white male diagnosed with non-small cell lung cancer and brain metastases. He was initially evaluated at the [facility] in [place], [place] for dyspnea. A thoracic CT scan completed on March 24, 2022 identified a 4.4 cm x 3.1 centimeters right upper lobe lesion, bilateral hilar adenopathy, bulky mediastinal adenopathy, osseous disease involving the right third and fourth ribs. A neck CT scan demonstrated bilateral cervical and supraclavicular lymphadenopathy. A PET scan obtained on April 09, 2022 revealed FDG activity within bilateral cervical lymph nodes, mediastinal and bilateral hilar lymph nodes, a right upper lobe pulmonary nodule, a right pleural effusion, large pericardial effusion, expansile lytic lesion involving the left fourth rib and left T4 transverse process, right iliac wing, right ischium, C3, T12, L5, left femur, and left tibia. A pericardiocentesis performed on April 14, 2022 diagnosed metastatic adenocarcinoma. An ultrasound-guided core needle biopsy of a left level III cervical lymph node obtained on May 07, 2022 demonstrated metastatic adenocarcinoma with a micropapillary pattern consistent with a lung primary. The tumor cells were 50% positive for PDL???L1. An MRI of the brain ordered on May 12, 2022 identified innumerable intracranial metastatic lesions. The patient has received 16 Gy of a prescribed 20 Watson with a 3-dimensional conformal radiotherapy plan utilizing a half-beam block treatment technique with opposed lateral portal sifuentes. Upon review of systems, he denied new neurological symptoms. On physical examination, the patient weighed 211 lbs. His temperature was 97.9 ???F and the blood pressure was 122/66 mmHg. His pulse was 53 bpm and the respiratory rate was 20. Cranial nerves were intact. Continue whole brain radiotherapy as planned. Signed by: Dr. Emre Ivan 05/28/2022 2:44:39 PM
--- NOTE | 2022-05-29 11:10 | N.ONRD TS_ITS ---
Radiation OncologyTreatment Summary Patient Name: Tomás Martins Date of : 1950 Date of Service: 05/29/2022 Attending Physician: Emre Ivan M.D. Tomás Martins has completed cranial radiotherapy for the management of metastatic non-small cell lung cancer and brain metastases. He was initially evaluated at the [facility] in [place], [place] for dyspnea. A thoracic CT scan completed on March 24, 2022 identified a 4.4 cm x 3.1 centimeters right upper lobe lesion, bilateral hilar adenopathy, bulky mediastinal adenopathy, osseous disease involving the right third and fourth ribs. A neck CT scan demonstrated bilateral cervical and supraclavicular lymphadenopathy. A PET scan obtained on April 09, 2022 revealed FDG activity within bilateral cervical lymph nodes, mediastinal and bilateral hilar lymph nodes, a right upper lobe pulmonary nodule, a right pleural effusion, large pericardial effusion, expansile lytic lesion involving the left fourth rib and left T4 transverse process, right iliac wing, right ischium, C3, T12, L5, left femur, and left tibia. A pericardiocentesis performed on April 14, 2022 diagnosed metastatic adenocarcinoma. An ultrasound-guided core needle biopsy of a left level III cervical lymph node obtained on May 07, 2022 demonstrated metastatic adenocarcinoma with a micropapillary pattern consistent with a lung primary. The tumor cells were 50% positive for PDL???L1. An MRI of the brain ordered on May 12, 2022 identified innumerable intracranial metastatic lesions. Daily radiotherapy was administered between the dates May 25, 2002 through May 29, 2022. A prescribed dose of 20 Gy was delivered in 5 fractions encompassing 5 elapsed days. The cranial fossa was treated utilizing a 3-dimensional conformal radiotherapy plan with an opposed lateral portal field design and a half-beam treatment technique. The left lateral port employed a gantry angle of 90??? and a collimator angle of 316???. The field size measured 11 cm x11 cm within X-direction and 16.5 cm x 0 cm within the Y-direction. The measured SSD was 92.5 cm with the field allocating 206 monitor units. The right lateral field utilized a 270??? gantry angle with a collimator angle of 44???. The field size measured 11 cm x 11 cm within the X-direction and 16.5 cm x 0 cm within the Y-direction. The SSD measured 92.5 cm with the port delivering 207 monitor units. All treatments were performed with the Ui Link linear accelerator and an isocentric technique. The dose was calculated by Anisotropic Analytic Algorithm. Photon energies of 15 MV were prescribed with the plan normalized to deliver 100% of the prescription dose to 99.9% of the planning target volume. Signed by: Dr. Emre Ivan 05/29/2022 11:08:27 AM
== END 2022-06-24 23:59 | disposition home or self-care (01) ==
PROVIDERS: PCP Nurse Practitioner Family; Visit Provider Radiology Radiation Oncology
DX: C34.11 Malignant neoplasm of upper lobe, right bronchus or lung (principal); C79.31 Secondary malignant neoplasm of brain; C77.8 Secondary and unspecified malignant neoplasm of lymph nodes of multiple regions; I31.39 Other pericardial effusion (noninflammatory); C79.51 Secondary malignant neoplasm of bone; C79.11 Secondary malignant neoplasm of bladder; Z79.899 Other long term (current) drug therapy; Z95.828 Presence of other vascular implants and grafts; Z92.3 Personal history of irradiation; Z87.891 Personal history of nicotine dependence
CPT/HCPCS: 77336; 77412; 99024; 99204

== ENCOUNTER → 2022-06-16 09:08 | Outpatient (BNVA) | payer MEDICARE, MEDICAID, SELFPAY | PROVIDERS: PCP Nurse Practitioner Family; Visit Provider Surgery | DX: C34.90 Malignant neoplasm of unspecified part of unspecified bronchus or lung (principal) | CPT/HCPCS: 99203 ==

== ENCOUNTER 2022-06-25 08:54 | Day surgery (SDC) | payer MEDICARE, MEDICAID, SELFPAY ==
[2022-06-25] VITALS (12 sets, daily range): BP systolic 97–107; BP diastolic 52–71; PULSE 59–70; RESP 12–18; TEMP 36.1–36.8; O2SAT 94–100
--- NOTE | 2022-06-25 08:56 | SC_ITS ---
WS: [id number] C-arm FL for CVA [id number] REASON FOR EXAM: mediport insertion FINDINGS: Chemotherapy port overlying the left anterolateral chest with transvenous left subclavian vein cathet er. Difficult to identify the catheter tip, most likely in the mid superior vena cava. SC/C-arm FL for CVA [id number] IMPRESSION: Chemotherapy port and catheter placement as above.
--- NOTE | 2022-06-25 08:56 | XRR_ITS ---
PROCEDURE INFORMATION: Exam: XR Chest Exam date and time: 06/25/2022 11:58 AM Age: 71 years old Clinical indication: MediPort insertion. Post-operative (0-2 days). TECHNIQUE: Imaging protocol: Radiologic exam of the chest. Views: 1 view. COMPARISON: CR XR chest 1V portable [id number] 04/21/2022 8:57 PM FINDINGS: Tubes, catheters and devices: Left MediPort with tip in the SVC. Lungs: There is patchy opacity in the right upper lobe concerning for pneumonia. Pleural spaces: No pleural effusion. No pneumothorax. Heart/Mediastinum: The heart appears less prominent than on the prior study. No gross evidence of pneumomediastinum. Bones/joints: There appears to be an exophytic partially calcified lesion extending from the proximal humeral metaphysis. No gross fracture. Advanced degenerative changes at the glenohumeral joints. XR/XR chest 1V portable [id number] IMPRESSION: 1. Left MediPort with tip in the SVC. 2. Patchy airspace opacity in the right upper lobe concerning for pneumonia. 3. There appears to be an exophytic partially calcified lesion extending from the proximal humeral metaphysis. Recommend dedicated radiographs of the left shoulder to further assess.
[2022-06-25] MEDS: sodium chloride 0.9% 1,000 ML 30 ML IV (09:26)
--- NOTE | 2022-06-25 09:35 | ANES.PREANE2 ---
Pre-Anesthetic Assessment Height/Weight: Height 1.83 m Weight 94.347 kg Temp Pulse Resp BP Pulse Ox O2 Del Method 97.3 F L 70 18 105/65 98 06/25/22 09:10 06/25/22 09:10 06/25/22 09:10 06/25/22 09:10 06/25/22 09:10 06/25/22 09:18 Preop Diagnosis: Metastatic Cancer Operation Date: 06/25/22 10:20 Proposed Procedures p left neck lymph node bx and port placement [id number] C34.90(Left) - DO tha Tony Portacath Placement(Not Applicable) - Nate Salinas DO Familial anesthetic complications: None Was Beta Yunior taken within 24 hours: Yes Was Clonidine taken within 24 hours: N/A Last intake: Intake Last Liquid Date 06/24/22 Last Liquid Time 18:00 Last Solid Date 06/24/22 Last Solid Time 17:00 Social Tobacco and No alcohol Exam alert, oriented x 3, clear to auscultation bilaterally and regular rate & rhythm Airway Mallampati: Class II Dentition: false Pulmonary Chronic Obstructive Pulmonary Disease CV/HEM Atrial Fibrillation, Arrythmia and Hypertension Chronic Renal Insufficiency GI Gastroesophageal Reflux Disease Metabolic Hyperlipidemia Anesthetic Plan ASA status: 3 Anesthesia: MAC Risk of > 500 ml blood loss (7ml/kg in children): No Medications/Allergies Home Medications Medication Instructions Recorded Confirmed Last Taken Type latanoprost 0.005 % eye drops 1 drop ophthalmic (eye) BEDTIME 11/03/19 06/25/22 06/24/22 History (Xalatan) lovastatin 20 mg tablet 20 mg PO BEDTIME 11/03/19 06/25/22 06/24/22 History meloxicam 15 mg tablet 15 mg PO DAILY 11/03/19 06/25/22 06/23/22 History omeprazole 20 mg capsule,delayed 20 mg PO DAILY 11/03/19 06/25/22 06/24/22 History release gabapentin 600 mg tablet 300 mg PO TID 08/05/20 06/24/22 06/24/22 History trazodone 100 mg tablet 150 mg PO BEDTIME 07/30/21 06/24/22 06/24/22 History tamsulosin 0.4 mg capsule (Flomax) 0.4 mg PO BID #180 caps 09/03/21 06/24/22 06/24/22 Rx amlodipine 5 mg tablet 5 mg PO BEDTIME #90 tabs 12/04/21 06/25/22 06/24/22 Rx sotalol 80 mg tablet 40 mg PO BID 01/02/22 06/24/22 06/25/22 07:00 History furosemide 40 mg tablet (Lasix) 40 mg PO DAILY #90 tabs 02/03/22 06/24/22 06/24/22 Rx potassium chloride 20 mEq 20 meq PO DAILY PRN Take with 04/27/22 06/24/22 06/22/22 Rx tablet,extended release(part/cryst) lasix #90 tabs dexamethasone 4 mg tablet 8 mg PO TID #90 tabs 05/20/22 06/24/22 06/24/22 Rx albuterol sulfate 2.5 mg/0.5 mL 2.5 mg inhalation Q20M 06/16/22 06/24/22 06/24/22 History solution for nebulization Allergies Allergy/AdvReac Type Severity Reaction Status Date / Time No Known Allergies Allergy Verified 06/25/22 09:06 Current Medications Generic Name Dose Route Start Last Admin Trade Name Freq PRN Reason Stop Dose Admin Sodium Chloride 1,000 mls @ 30 mls/hr 06/25/22 09:00 06/25/22 09:26 Sodium Chloride 0.9% IV 06/26/22 08:59 30 mls/hr .Q24H RUBEN Administration PFSH Anesthesia Medical History Benign essential HTN Bladder cancer Large papillary tumor right posterior lateral bladder wall resected 11/15/2019. 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 Elevated blood pressure reading Gross hematuria Lung cancer Malignant neoplasm of urinary bladder neck Metastatic non-small cell lung cancer Nerve pain New onset a-fib Personal history of skin cancer Postoperative urinary retention Primary cancer of urethra Renal insufficiency Surgical History (Updated 06/16/22 @ 09:57 by Nate Salinas DO) H/O transurethral destruction of bladder lesion History of bladder surgery perineal urethrostomy Hx of bilateral cataract extraction Hx of cholecystectomy Hx of hand surgery Family History Mother , AT AGE 100 LUNG CANCER Cancer Father , AT AGE 82 COLON CANCER Cancer Denies family history of Diabetes CAD (coronary artery disease) Clotting disorder Dementia Chronic kidney disease (CKD) Suicide Anesthesia complication Bleeding disorder Lung disease Stroke Social History Smoking and tobacco status: former smoker (smoked x 20+ years) Alcohol intake: current Alcohol intake frequency: holidays/special occasions only Adopted: No Caregiver/support person: No Lives independently: No Marital status: Current occupational status: retired History of recent travel: No Current gender identity: Male Data Anesthesia Cardiac Studies: Echocardiogram Ultrasound 05/27/20 Transesophageal Echocardiogram 05/28/20 Cardiac Event Monitor 08/04/21
--- NOTE | 2022-06-25 10:26 | W.PM.OPSUD ---
Surgery/Procedure H&P Update DATE OF PROCEDURE: June 25, 2022 DATE H&P PERFORMED: 06/16/22 PREOP DIAGNOSIS: Metastatic Cancer PLANNED PROCEDURE: Operation Date: 06/25/22 10:20 Proposed Procedures p left neck lymph node bx and port placement [id number] C34.90(Left) - Nate Salinas DO s Portacath Placement(Not Applicable) - Nate Salinas DO
[2022-06-25] MEDS: ceFAZolin 2,000 MG in sodium chloride 0.9% (plus) 50 ML 100 MG IV (10:33)
--- NOTE | 2022-06-25 11:03 | SUR.OPER ---
spoke with Charlette and Dr Trevino from path, informed to submit lymph node specimen as fresh and Dr Trevino would take care of any additional path orders for oncology, all he needed from OR was the surgical path order as fresh.
[2022-06-25] MEDS: heparin, porcine 1,000 unit/mL INJ 10 mL 10000 UNIT INJECTION (11:16)
--- NOTE | 2022-06-25 11:28 | PM.OP ---
Operative Report Date of procedure: June 25, 2022 Pre-op diagnosis: Preop Diagnosis Metastatic Cancer Post-op diagnosis: same Procedure done: Mediport placement and excision of left supraclavicular lymph node Implants: PowerPort Specimens removed/disposition: Left supraclavicular lymph node Surgeon: Dr. Nate Salinas DO Anesthesia: MAC Estimated blood loss (mL): 5 Complications: None apparent Brief History: This is a very pleasant 71-year-old gentleman with metastatic cancer. Mediport placement was requested for chemotherapy. Oncology also requested excision of a prominent left supraclavicular lymph node for molecular testing. The risks and benefits of the procedures were explained and documented. Procedure: Patient was taken to the operating room and placed supine on the operating room table. All bony prominences were padded. She was given IV sedation and monitored throughout the case by the anesthesia personnel. SCDs were placed and turned on. The arms were tucked to the side. Patient received Ancef 2 g preoperatively IV. The bilateral chest wall was prepped and draped in usual sterile fashion using chlorhexidine base prep. Sterile drapes were applied. We did procedure pause prior to beginning. An 18 gauge needle was placed in the left subclavian vein. Dark, nonpulsatile blood was aspirated. A guidewire was placed through the needle centrally toward the atrial/vena caval junction. Fluoroscopy visualized good placement. The needle was removed and the guidewire was clipped to the drape with a hemostat. Further local anesthetic was infiltrated in the soft tissues of the left chest wall and a #15 blade was used to make a horizontal skin incision. A subcutaneous Mediport pocket was created using Bovie cautery, dissecting down through the skin and subcutaneous tissues. Meticulous hemostasis was achieved. The Mediport was sutured in position using 3-0 vicryl suture x2 stitches. A #15 blade was used to make a small skin luther around the guidewire insertion area. The Mediport tubing was tunneled through the subcutaneous tissues up to the needle insertion location. A dilator with a peel-away sheath was placed over the guidewire and placed centrally. After measuring with fluoroscopy, the Mediport tubing was cut to length so that the tip would end at the atrial/vena caval junction. The inner cannula and the guidewire were removed, leaving the dilator sheath in place. The Mediport was flushed. The tip of the catheter was inserted through the peel-away sheath and the peel-away sheath removed in the standard fashion. The Mediport was accessed with a straight Torres needle and dark, nonpulsatile blood was aspirated and flushed using heparinized saline to hep-lock the Mediport. Final fluoroscopy visualization showed no kink in the catheter and the tip of the Mediport tubing near the atrial/vena caval junction. Both skin incisions were thoroughly irrigated and suctioned dry. Meticulous hemostasis noted. The Mediport incision was closed using interrupted 3-0 Vicryl suture for the deep dermal layer and 4-0 Vicryl run to close the skin edge. The left subclavian insertion site incision was closed with a single subcuticular stitch. Skin glue was applied as a topical dressing. This was allowed to dry. Attention was then brought to the left supraclavicular lymph node. 1% lidocaine with epinephrine was used to anesthetize the area over the lymph node. A 15 blade scalpel was then used to make a 2.5 cm oblique incision over the area of interest. Meticulous and careful dissection was performed with Bovie cautery down through the platysma's and the sternocleidomastoid muscle was split bluntly. I then encountered a large black lymph node which I excised using Bovie cautery. Specimen was passed off fresh to pathology. Hemostasis achieved with electrocautery. Rufino was then placed into the wound bed. Dermis was approximated with 3-0 Vicryl in an interrupted subcuticular fashion. Skin glue was applied. Patient was awakened from anesthesia and transferred via her cart to the recovery room in stable condition. All needle, sponge, and instrument counts were correct per the operating personnel x2 counts.
[2022-06-25] MEDS: HYDROcodone-acetaminophen 7.5-325 mg Tablet 1 TAB PO (12:35)
--- NOTE | 2022-06-25 15:54 | ANE.PACU2 ---
Inpatient post-anesthesia follow up: Airway intact: Yes Vital signs: Temperature 97.2 F Pulse Rate 63 Respiratory Rate 18 Blood Pressure 107/52 Pulse Oximetry 96 Oxygen Delivery Me thod Room Air Oxygen Flow Rate 8 Fraction of Inspir ed Oxygen Hydration adequate: Yes Nausea and vomiting: No Pain level: 1 Mental status: Baseline
[2022-06-30 16:20] LABS: PD-L1 (Clone 22C3) by IHC BBPL See Report
[2022-07-30 14:13] LABS: EGFR Block Specimen ID See Report; EGFR Result See Report; EGFR Specimen Source See Report; KRAS Mutation Analysis See Report; KRAS Paraffin Block Number See Report; KRAS Source See Report; Lung Cancer ALK Client Access See Report; Lung Cancer ALK Client Phone # See Report; Lung Cancer ALK Clinical Indic See Report; Lung Cancer ALK Patient ID: See Report; Lung Cancer ALK Ref. Phy # See Report; Lung Cancer ALK Referring Phy See Report; Lung Cancer ALK Specimen Src See Report; ROS1 Client Accession # See Report; ROS1 Client Phone # See Report; ROS1 Clinical Indication See Report; ROS1 Patient ID See Report; ROS1 Referring Physician See Report; ROS1 Referring Physician Phone See Report; ROS1 Specimen Type See Report
[2022-07-30 14:14] LABS: EGFR Comment See Report
== END 2022-06-25 13:07 | disposition home or self-care (01) ==
PROVIDERS: PCP Nurse Practitioner Family; Visit Provider Surgery
PROC: (CPT 36561; principal; 2022-06-25 10:10)
PROC: (CPT 36561; 2022-06-25 10:10)
DX: C34.90 Malignant neoplasm of unspecified part of unspecified bronchus or lung (principal); J44.9 Chronic obstructive pulmonary disease, unspecified; I48.91 Unspecified atrial fibrillation; I10 Essential (primary) hypertension; K21.9 Gastro-esophageal reflux disease without esophagitis; N40.1 Benign prostatic hyperplasia with lower urinary tract symptoms; N13.8 Other obstructive and reflux uropathy; Z87.891 Personal history of nicotine dependence
CPT/HCPCS: 36561; 38500; 71045; 76000; 77001; 81275; 88307; 88341; 88342; 88368; 88381; C1788; J0690; J1100; J1644; J2405; J2704; J3010; J7030

== ENCOUNTER 2022-06-27 18:42 | Emergency (ER) | payer MEDICARE, MEDICAID, SELFPAY ==
[2022-06-27 18:52] VITALS: BP 116/61; PULSE 69; RESP 16; TEMP 36.5; O2SAT 95
--- NOTE | 2022-06-27 20:08 | USR_ITS ---
PROCEDURE INFORMATION: Exam: US Duplex Left Lower Extremity Veins, Limited Exam date and time: 06/27/2022 10:12 PM Age: 71 years old Clinical indication: Edema, localized; Upper extremity, left; Patient HX: Patient had radiation 2 weeks ago for bladder CA; Additional info: Swelling, HX CA and recent surg TECHNIQUE: Imaging protocol: Real-time Duplex ultrasound of the Left Lower Extremity with 2-D marie scale, color Doppler flow and spectral waveform analysis with image documentation. Limited exam focused on the left lower extremity veins. COMPARISON: US renal BI* [id number] 04/21/2022 10:19 PM FINDINGS: Left deep veins: Occlusive thrombus is visible throughout the left common femoral vein, left femoral vein, left popliteal vein and left posterior tibial veins of the calf. Veins are incompressible. No spontaneous color flow in the vein lumen. No visible spectral Doppler waveforms. Left superficial veins: Thrombosis of the left saphenous femoral junction. Soft tissues: Diffuse subcutaneous soft tissue edema throughout left lower extremity. US/CV venous duplex [facility] [id number] IMPRESSION: Extensive left lower extremity deep vein thrombosis.
--- NOTE | 2022-06-27 21:39 | W.ED.EXTPRO ---
HPI - Extremity Problem General: Chief complaint: Extremity Problem,Nontraumatic Stated complaint: Left leg swelling with pain Time Seen by Provider: 06/27/22 21:36 History of Present Illness: Patient comes in today for increased swelling to the left lower extremity. Patient reports that over the last 3 to 4 days he has had some increased swelling and discomfort to the left lower extremity. Patient does have bladder cancer and lung cancer that has metastasized, patient did have a recent port placement in the left subclavian area. Patient also has a history of atrial fibrillation, chronic peripheral edema, and BPH. Associated symptoms: Deny fever(s) Review of Systems Const: Denies: fever(s) GI: Denies: abdominal pain Musc: Reports: extremity swelling (Bilateral lower extremity swelling with worse on the left) PFSH ED PFSH: Medical History (Updated 06/27/22 @ 22:48 by FLORENCIA Lowe) Benign essential HTN Bladder cancer Large papillary tumor right posterior lateral bladder wall resected 11/15/2019. 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 Elevated blood pressure reading Gross hematuria Lung cancer Malignant neoplasm of urinary bladder neck Metastatic non-small cell lung cancer Nerve pain New onset a-fib Personal history of skin cancer Postoperative urinary retention Primary cancer of urethra Renal insufficiency Surgical History (Updated 06/16/22 @ 09:57 by Nate Salinas DO) H/O transurethral destruction of bladder lesion History of bladder surgery perineal urethrostomy Hx of bilateral cataract extraction Hx of cholecystectomy Hx of hand surgery Family History Mother , AT AGE 100 LUNG CANCER Cancer Father , AT AGE 82 COLON CANCER Cancer Denies family history of Diabetes CAD (coronary artery disease) Clotting disorder Dementia Chronic kidney disease (CKD) Suicide Anesthesia complication Bleeding disorder Lung disease Stroke Social History Smoking and tobacco status: former smoker (smoked x 20+ years) Alcohol intake: current Alcohol intake frequency: holidays/special occasions only Adopted: No Caregiver/support person: No Lives independently: No Marital status: Current occupational status: retired History of recent travel: No Current gender identity: Male Physical Exam Const: COMMON NORMALS: alert HENMT: COMMON NORMALS: normocephalic HEAD & SCALP: normocephalic Neck/C-Spine: COMMON NORMALS: full ROM OTHER: New surgical wound to the left sternoclavicular area. Resp: COMMON NORMALS: normal respiratory effort AUSCULTATION: diminished lung sounds Cardio: COMMON NORMALS: regular rate RATE: regular rate Extremity: RIGHT LOWER EXTREMITY: Yes upper leg (Swelling to the upper leg increased medial side) and Yes lower leg (Significant edema) LEFT LOWER EXTREMITY: Yes lower leg (Edema +2 pitting) Neuro: SENSORIUM/ORIENTATION: Yes alert Skin: COMMON NORMALS: turgor normal GENERAL SKIN EXAM: turgor normal Course Vital Signs: Vital signs: Vital Signs Temperature 97.6 F 06/27/22 21:45 Pulse Rate 66 06/27/22 21:45 Respiratory Rate 18 06/27/22 21:45 Blood Pressure 99/58 06/27/22 21:45 Pulse Oximetry 98 06/27/22 21:45 Oxygen Delivery Me thod 06/27/22 21:45 MDM - Extremity (Nontraumatic) Medical Decision Making 71-year-old male patient comes in today for complaints of increased swelling to the bilateral lower extremities with worst being to the left lower leg. Patient does have a history of chronic edema to the extremity. Edema has been worse over the past week. Patient is concerned for blood clot in the left leg. Respirations are even, decreased breath sounds are noted in the lung sifuentes, vital signs are stable. Differential diagnosis includes not limited to DVT, CHF, dependent edema, lymphedema related to cancer. Ultrasound noted an extensive DVT ranging from the femoral down to the popliteal. Reviewed exam with patient with recommendations for treatment and follow-up. Patient was started on Eliquis 10 mg twice a day for 7 days and then decrease to 5 mg twice a day. Patient was recommended to follow-up with primary care in 1 week for recheck. Return to ED for worsening symptoms or new concerns. Lab Data 06/27/22 22:00 06/27/22 22:00 Radiology Impressions Venous Duplex 06/27/22 20:08 IMPRESSION: Extensive left lower extremity deep vein thrombosis. Chest X-Ray 06/27/22 21:46 IMPRESSION: 1. Patchy right upper lobe opacity may represent pneumonia or pulmonary nodule. Radiographic follow-up recommended. 2. Expansile destructive left posterior rib 4 mass consistent with osseous metastatic disease. Laboratory Results WBC 10.7 10^3/uL (4.0-10.0) H 06/27/22 22:00 RBC 3.05 10^6/uL (4.1-5.3) L 06/27/22 22:00 Hgb 8.7 g/dL (11.7-16.6) L 06/27/22 22:00 Hct 26.8 % (42.0-52.0) L 06/27/22 22:00 MCV 87.9 fl (80-94) 06/27/22 22:00 MCH 28.5 pg (28.0-34.0) 06/27/22 22:00 MCHC 32.5 g/dL (30.0-36.0) 06/27/22 22:00 RDW 16.1 % (12.1-15.1) H 06/27/22 22:00 Plt Count 188 10^3/cmm (130-400) 06/27/22 22:00 MPV 10.4 fL (7.4-10.4) 06/27/22 22:00 Neut % (Auto) 78.5 % 06/27/22 22:00 Lymph % (Auto) 12.4 % 06/27/22 22:00 [place] % (Auto) 6.9 % 06/27/22 22:00 Eos % (Auto) 0.7 % 06/27/22 22:00 Baso % (Auto) 0.5 % 06/27/22 22:00 Neut # (Auto) 8.42 10^3/uL (1.8-7.7) H 06/27/22 22:00 Lymph # (Auto) 1.3 10^3/uL (0.8-4.8) 06/27/22 22:00 [place] # (Auto) 0.7 10^3/uL (0.2-0.9) 06/27/22 22:00 Eos # (Auto) 0.1 10^3/uL (0.0-0.8) 06/27/22 22:00 Baso # (Auto) 0.1 10^3/uL (0.0-0.1) 06/27/22 22:00 Nucleated RBC % (auto) 0 % 06/27/22 22:00 Nucleated RBCs # 0.0 /100WBC 06/27/22 22:00 Sodium 128 mmol/L (136-145) L 06/27/22 22:00 Potassium 3.6 mmol/L (3.5-5.1) 06/27/22 22:00 Chloride 87 mmol/L (98-107) L 06/27/22 22:00 Carbon Dioxide 28 mmol/L (22-29) 06/27/22 22:00 Anion Gap 16.6 (5-19) 06/27/22 22:00 BUN 22 mg/dL (8-23) 06/27/22 22:00 Creatinine 1.7 mg/dL (0.7-1.2) H 06/27/22 22:00 GFR Calculation Not Reportable 06/27/22 22:00 Glucose 103 mg/dL (65-115) 06/27/22 22:00 Calculated Osmolality 270 mOsm/kg (285-295) L 06/27/22 22:00 Calcium 8.7 mg/dL (8.5-10.5) 06/27/22 22:00 Discharge Plan Discharge Patient Disposition: Home Clinical Impression: DVT (deep venous thrombosis) Qualifiers: DVT location: lower extremity Affected thrombotic vein of extremity: femoral Chronicity: acute Laterality: left Qualified Code(s): I82.412 - Acute embolism and thrombosis of left femoral vein Condition: Stable Prescriptions: Quique Beauchamp DVT-PE Treat 30D Start 5 mg (74 tabs) tablets,dose pack See Rx Instructions .ROUTE .COMPLEX Qty: 74 0RF Rx Instructions: orally per package directions No Action omeprazole 20 mg capsule,delayed release(DR/EC) 20 mg PO DAILY meloxicam 15 mg tablet 15 mg PO DAILY Hold Instructions: Resume on 06/28/22. lovastatin 20 mg tablet 20 mg PO BEDTIME latanoprost [Xalatan] 0.005 % drops 1 drop ophthalmic (eye) BEDTIME gabapentin 600 mg tablet 300 mg PO TID trazodone 100 mg tablet 150 mg PO BEDTIME albuterol sulfate 2.5 mg/0.5 mL solution for nebulization 2.5 mg inhalation Q20M Rx Instructions: for up to 3 doses tamsulosin [Flomax] 0.4 mg capsule 0.4 mg PO BID Qty: 180 3RF amlodipine 5 mg tablet 5 mg PO BEDTIME Qty: 90 3RF furosemide [Lasix] 40 mg tablet 40 mg PO DAILY Qty: 90 3RF potassium chloride 20 mEq tablet,ER particles/crystals 20 meq PO DAILY PRN (Reason: Take with lasix) Qty: 90 3RF Rx Instructions: To be taken with Lasix dexamethasone 4 mg tablet 8 mg PO TID Qty: 90 0RF sotalol 80 mg tablet 40 mg PO BID hydrocodone-acetaminophen 7.5-325 mg tablet 1 tab PO Q6H PRN (Reason: pain) Qty: 10 0RF Discharge Orders: Discharge ED (Routine); Ordered 06/27/22 Ordered By: Nikita Purcell Referrals: Lacey Gooden FNP [Primary Care Provider] - Discharge Diet: Usual diet Discharge Activity: Increase activity as tolerated Patient Instructions: Apixaban (By mouth) (Eliquis), Deep Vein Thrombosis (ED) Activity Restrictions/Additional Instructions: Take medication as directed. Follow-up with primary care in 3 days for recheck. Return to ED for worsening symptoms such as severe chest pain, severe shortness of breath, abnormal bleeding, or new concerns. Coding Level of Care Code ED [employer] Operator for Vikram Fwd Exam Detailed
[2022-06-27 21:45] VITALS: BP 99/58; PULSE 66; RESP 18; TEMP 36.4; O2SAT 98
--- NOTE | 2022-06-27 21:46 | XRR_ITS ---
PROCEDURE INFORMATION: Exam: XR Chest Exam date and time: 06/27/2022 9:56 PM Age: 71 years old Clinical indication: Dyspnea TECHNIQUE: Imaging protocol: Radiologic exam of the chest. Views: 1 view. COMPARISON: CR XR chest 1V portable [id number] 06/25/2022 11:58 AM FINDINGS: Tubes, catheters and devices: Left-sided chest port extends to the mid SVC stable in position from comparison. Lungs: There is some focal patchiness in the right upper lobe. There is possibly a focal nodule. Pleural spaces: Unremarkable. No pleural effusion. No pneumothorax. Heart/Mediastinum: Unremarkable. No cardiomegaly. 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 Focal expansile mass in the posterior aspect of left rib 4 redemonstrated. XR/XR chest 1V portable [id number] IMPRESSION: 1. Patchy right upper lobe opacity may represent pneumonia or pulmonary nodule. Radiographic follow-up recommended. 2. Expansile destructive left posterior rib 4 mass consistent with osseous metastatic disease.
[2022-06-27 22:12] LABS: Basophils # 0.1 10^3/uL (0.0-0.1); Basophils % 0.5 %; Eosinophils # 0.1 10^3/uL (0.0-0.8); Eosinophils % 0.7 %; Hematocrit 26.8 % (42.0-52.0); Hemoglobin 8.7 g/dL (11.7-16.6); Lymphocytes # 1.3 10^3/uL (0.8-4.8); Lymphocytes % 12.4 %; Mean Corpuscular HGB Conc 32.5 g/dL (30.0-36.0); Mean Corpuscular Hemoglobin 28.5 pg (28.0-34.0); Mean Corpuscular Volume 87.9 fl (80-94); Mean Platelet Volume 10.4 fL (7.4-10.4); Monocytes # 0.7 10^3/uL (0.2-0.9); Monocytes % 6.9 %; Neutrophils # 8.42 10^3/uL (1.8-7.7); Neutrophils % 78.5 %; Nucleated Red Blood Cells % 0 %; Platelet Count 188 10^3/cmm (130-400); Red Blood Count 3.05 10^6/uL (4.1-5.3); Red Cell Distribution Width 16.1 % (12.1-15.1); White Blood Count 10.7 10^3/uL (4.0-10.0)
[2022-06-27 22:29] LABS: Anion Gap 16.6 (5-19); Blood Urea Nitrogen 22 mg/dL (8-23); Calcium 8.7 mg/dL (8.5-10.5); Carbon Dioxide 28 mmol/L (22-29); Chloride 87 mmol/L (98-107); Glucose 103 mg/dL (65-115); Osmolality Calculated 270 mOsm/kg (285-295); Potassium 3.6 mmol/L (3.5-5.1); Sodium 128 mmol/L (136-145)
[2022-06-27] MEDS: apixaban 5 mg Tablet 10 MG PO (22:52)
[2022-06-27 22:55] VITALS: BP 102/61; PULSE 84; RESP 18
== END 2022-06-27 22:55 | disposition home or self-care (01) ==
PROVIDERS: Emergency Provider Nurse Practitioner Family; PCP Nurse Practitioner Family
DX: I82.412 Acute embolism and thrombosis of left femoral vein (principal); Z87.891 Personal history of nicotine dependence; I10 Essential (primary) hypertension; Z85.51 Personal history of malignant neoplasm of bladder; Z85.118 Personal history of other malignant neoplasm of bronchus and lung; Z85.59 Personal history of malignant neoplasm of other urinary tract organ
CPT/HCPCS: 71045; 80048; 85025; 93971; 99284

== ENCOUNTER → 2022-07-07 08:30 | Outpatient (BNVA) | payer MEDICARE, MEDICAID, SELFPAY | PROVIDERS: PCP Nurse Practitioner Family; Visit Provider Surgery | DX: C34.90 Malignant neoplasm of unspecified part of unspecified bronchus or lung (principal); Z95.828 Presence of other vascular implants and grafts | CPT/HCPCS: 99213 ==

== ENCOUNTER 2022-07-19 11:53 | Inpatient (IN) | payer MEDICARE, MEDICAID, SELFPAY ==
[2022-07-19 11:55] VITALS: BP 111/67; PULSE 75; RESP 14; TEMP 36.8; O2SAT 94
--- NOTE | 2022-07-19 12:03 | XRR_ITS ---
PROCEDURE INFORMATION: Exam: XR Chest Exam date and time: 07/19/2022 12:49 PM Age: 71 years old Clinical indication: Shortness of breath; Additional info: SOB TECHNIQUE: Imaging protocol: Radiologic exam of the chest. Views: 1 view. COMPARISON: CR (CHEST, ) 06/27/2022 9:56 PM FINDINGS: Lungs: Unremarkable. No consolidation. Pleural spaces: Unremarkable. No pleural effusion. No pneumothorax. Heart/Mediastinum: Unremarkable. No cardiomegaly. Bones/joints: Unremarkable. XR/XR chest 1V portable [id number] IMPRESSION: No acute findings.
--- NOTE | 2022-07-19 12:05 | W.ED.SOB ---
HPI - SOB/Dyspnea General: Stated Complaint: SOB Time Seen by Provider: 07/19/22 11:56 History of Present Illness: HPI Narrative: Patient is brought in by EMS with shortness of breath. States that he has been getting increasing more short of breath the past couple days and has not felt very well. States he has had a productive cough. Denies any fever, vomiting, or diarrhea. Patient states he has history of multiple types of cancer including lung cancer. States he is getting ready to start chemotherapy but has not started yet. Throughout the encounter the patient does appear to be mildly confused. He denies chest pain. Associated symptoms: Deny abdominal pain, chest pain, fever(s), nausea, palpitations, polyuria or vomiting Review of Systems Const: Reports: chills; Denies: fever(s) or body aches Eyes: Denies: change in vision or blurry vision ENMT: Denies: throat pain or odynophagia Card: Denies: chest pain or palpitations Resp: Reports: dyspnea and productive cough GI: Denies: abdominal pain, nausea or vomiting : Denies: flank pain or dysuria Musc: Denies: neck pain or back pain Skin/Breast: Denies: rash or pruritus Neuro: Denies: headache(s) or numbness in extremities Psych: Denies: anxiety or change in appetite Endo: Denies: polyuria or excessive sweating PFSH ED PFSH: Medical History (Updated 07/07/22 @ 08:45 by Nate Salinas DO) Benign essential HTN Bladder cancer Large papillary tumor right posterior lateral bladder wall resected 11/15/2019. 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 Elevated blood pressure reading Gross hematuria Lung cancer Malignant neoplasm of urinary bladder neck Metastatic non-small cell lung cancer Nerve pain New onset a-fib Personal history of skin cancer Port-A-Cath in place Postoperative urinary retention Primary cancer of urethra Renal insufficiency Surgical History H/O transurethral destruction of bladder lesion History of bladder surgery perineal urethrostomy Hx of bilateral cataract extraction Hx of cholecystectomy Hx of hand surgery Family History Mother , AT AGE 100 LUNG CANCER Cancer Father , AT AGE 82 COLON CANCER Cancer Denies family history of Diabetes CAD (coronary artery disease) Clotting disorder Dementia Chronic kidney disease (CKD) Suicide Anesthesia complication Bleeding disorder Lung disease Stroke Social History Smoking and tobacco status: former smoker (smoked x 20+ years) Alcohol intake: current Alcohol intake frequency: holidays/special occasions only Adopted: No Caregiver/support person: No Lives independently: No Marital status: Current occupational status: retired History of recent travel: No Current gender identity: Male Physical Exam Const: COMMON NORMALS: no acute distress, healthy appearing and alert HENMT: COMMON NORMALS: normocephalic and atraumatic HEAD & SCALP: normocephalic and atraumatic Eye: COMMON NORMALS: Equal, round and reactive pupils present and EOMs intact bilaterally PUPIL: Yes Equal, round and reactive pupils present Neck/C-Spine: COMMON NORMALS: full ROM and supple Resp: COMMON NORMALS: normal respiratory effort, No retractions and No use of accessory muscles OTHER: Coarse breath sounds in the right lung Cardio: COMMON NORMALS: regular rate and regular rhythm RATE: regular rate RHYTHM: regular rhythm GI: COMMON NORMALS: Normal to inspection, nondistended, normoactive bowel sounds present, Soft to palpation and non-tender PALPATION: Yes Soft to palpation Back/Pelvis: COMMON NORMALS: thoracic and lumbar spine normal to inspection and no thoracic nor lumbar tenderness Extremity: COMMON NORMALS: normal to inspection and full ROM Neuro: SENSORIUM/ORIENTATION: Yes alert OTHER: Alert, oriented x2 Psych: COMMON NORMALS: mental status grossly normal and cooperative Skin: COMMON NORMALS: no rashes or lesions noted and no wounds GENERAL SKIN EXAM: no rashes or lesions noted MDM - SOB/Dyspnea Medical Decision Making Patient is brought in by EMS with shortness of breath. States that he has been getting increasing more short of breath the past couple days and has not felt very well. States he has had a productive cough. Denies any fever, vomiting, or diarrhea. Patient states he has history of multiple types of cancer including lung cancer. States he is getting ready to start chemotherapy but has not started yet. Throughout the encounter the patient does appear to be mildly confused. He denies chest pain. Will check labs, x-ray, EKG, and reassess. Discharge Plan Discharge Condition: Stable Prescriptions: No Action omeprazole 20 mg capsule,delayed release(DR/EC) 20 mg PO DAILY meloxicam 15 mg tablet 15 mg PO DAILY Hold Instructions: Resume on 06/28/22. lovastatin 20 mg tablet 20 mg PO BEDTIME latanoprost [Xalatan] 0.005 % drops 1 drop ophthalmic (eye) BEDTIME gabapentin 600 mg tablet 300 mg PO TID trazodone 100 mg tablet 150 mg PO BEDTIME albuterol sulfate 2.5 mg/0.5 mL solution for nebulization 2.5 mg inhalation Q20M Rx Instructions: for up to 3 doses tamsulosin [Flomax] 0.4 mg capsule 0.4 mg PO BID Qty: 180 3RF amlodipine 5 mg tablet 5 mg PO BEDTIME Qty: 90 3RF furosemide [Lasix] 40 mg tablet 40 mg PO DAILY Qty: 90 3RF potassium chloride 20 mEq tablet,ER particles/crystals 20 meq PO DAILY PRN (Reason: Take with lasix) Qty: 90 3RF Rx Instructions: To be taken with Lasix dexamethasone 4 mg tablet 8 mg PO TID Qty: 90 0RF sotalol 80 mg tablet 40 mg PO BID hydrocodone-acetaminophen 7.5-325 mg tablet 1 tab PO Q6H PRN (Reason: pain) Qty: 10 0RF Eliquis DVT-PE Treat 30D Start 5 mg (74 tabs) tablets,dose pack See Rx Instructions .ROUTE .COMPLEX Qty: 74 0RF Rx Instructions: orally per package directions Referrals: Lacey Gooden FNP [Primary Care Provider] - Coding Level of Care Code ED [employer]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
[2022-07-19 12:15] VITALS: BP 111/67; PULSE 70; RESP 16; O2SAT 96
--- NOTE | 2022-07-19 12:15 | ECG_ITS ---
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 Measurements Intervals [place] Rate: 68 P: 62 VT: 168 QRS: 50 QRSD: 102 T: 49 QT: 406 QTc: 435 Interpretive Statements SINUS RHYTHM INCOMPLETE RIGHT BUNDLE BRANCH BLOCK [90+ ms QRS DURATION, TERMINAL R IN V1/V2, 40+ ms S IN I/aVL/V4/V5/V6] Compared to ECG 01/05/2022 06:11:25 Incomplete right bundle-branch block now present Sinus bradycardia no longer present Short VT interval no longer present Electronically Signed On 07-20-2022 6:01:22 FOOD SCIENCE TECHNICIAN by Marisela Schuler M.D. [id number]
[2022-07-19 12:18] LABS: Basophils % 0.5 %; Eosinophils # 0.1 10^3/uL (0.0-0.8); Eosinophils % 1.3 %; Hematocrit 28.8 % (42.0-52.0); Hemoglobin 8.8 g/dL (11.7-16.6); Lymphocytes # 0.9 10^3/uL (0.8-4.8); Lymphocytes % 12.3 %; Mean Corpuscular HGB Conc 30.6 g/dL (30.0-36.0); Mean Corpuscular Hemoglobin 27.9 pg (28.0-34.0); Mean Corpuscular Volume 91.4 fl (80-94); Mean Platelet Volume 10.5 fL (7.4-10.4); Monocytes # 0.8 10^3/uL (0.2-0.9); Monocytes % 10.4 %; Neutrophils # 5.57 10^3/uL (1.8-7.7); Neutrophils % 75.1 %; Nucleated Red Blood Cells % 0 %; Platelet Count 265 10^3/cmm (130-400); Red Blood Count 3.15 10^6/uL (4.1-5.3); Red Cell Distribution Width 15.8 % (12.1-15.1); White Blood Count 7.4 10^3/uL (4.0-10.0)
[2022-07-19 12:36] LABS: Lactic Sepsis W/Reflex 1.4 mmol/L (0.5-2.2)
[2022-07-19 13:01] LABS: Troponin(5th) Baseline 213 ng/L (0-15)
[2022-07-19] MEDS: sodium chloride 0.9% 1,000 ML 999 ML IV (13:05)
[2022-07-19 13:07] LABS: Alanine Aminotransferase 14 U/L (0-41); Albumin Level 3.5 g/dL (3.5-5.2); Alkaline Phosphatase 204 U/L (40-130); Aspartate Amino Transferase 28 U/L (0-40); Blood Urea Nitrogen 15 mg/dL (8-23); Carbon Dioxide 31 mmol/L (22-29); Chloride 96 mmol/L (98-107); Globulin 2.9 g/dL (1.3-4.6); Glucose 143 mg/dL (65-115); NT Pro B Type Natriuretic Pept 2507 pg/mL (0-125); Osmolality Calculated 283 mOsm/kg (285-295); Sodium 135 mmol/L (136-145); Total Bilirubin 1.8 mg/dL (0.15-1.2); Total Protein 6.4 g/dL (6.6-8.7)
[2022-07-19 13:13] LABS: Influenza A by IFA negative (Negative); Influenza B by IFA negative (Negative)
[2022-07-19 13:14] LABS: SARS Covid-2 Antigen negative (Negative)
--- NOTE | 2022-07-19 13:22 | CTR_ITS ---
PROCEDURE INFORMATION: Exam: CTA Chest With Contrast Exam date and time: 07/19/2022 2:07 PM Age: 71 years old Clinical indication: Shortness of breath; Prior surgery; Surgery type: Port; Additional info: Concern for pe TECHNIQUE: Imaging protocol: Computed tomographic angiography of the chest with contrast. 3D rendering (Not supervised by radiologist): MIP and/or 3D reconstructed images were created by the technologist. Radiation optimization: All CT scans at this facility use at least one of these dose optimization techniques: automated exposure control; mA and/or kV adjustment per patient size (includes targeted exams where dose is matched to clinical indication); or iterative reconstruction. Contrast material: OMNI 350; Contrast volume: 85 ml; Contrast route: INTRAVENOUS (IV); COMPARISON: CT chest w con* [id number] 03/24/2022 11:02 AM RADIATION DOSE METRICS: Total DLP (mGy-cm): 458.17 FINDINGS: Pulmonary arteries: Filling defect in the left lower lobe segmental and multiple subsegmental pulmonary arteries representing acute pulmonary embolism. Aorta: Unremarkable. No aortic aneurysm. No aortic dissection. Lungs: Right upper lobe spiculated mass measuring 4.4 x 2.6, previously 4.6 x 2.6. Pleural spaces: Unremarkable. No pneumothorax. No pleural effusion. Heart: Unremarkable. No cardiomegaly. Trace pericardial effusion. Lymph nodes: Mediastinal lymphadenopathy. Gallbladder and bile ducts: Cholecystectomy clips. Cholecystectomy clips. Bones/joints: Expansile destructive osseous lesion in the medial 4th posterior rib not significantly changed. Small round sclerotic foci are noted within the right 3rd and 4th lateral ribs. Soft tissues: Unremarkable. CT/CT angio chest PE protcl [id number] IMPRESSION: Acute pulmonary embolism involving the left lower lobe segmental and multiple subsegmental pulmonary arteries. RV to LV ratio measures 0.8. Right upper lobe mass stable in appearance and size representing primary lung carcinoma. Other chronic findings as described above.
[2022-07-19] MEDS: iohexol 350 mg/mL 500 mL Btl (per mL) IV (14:16)
--- NOTE | 2022-07-19 14:25 | ECG_ITS ---
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 Measurements Intervals [place] Rate: 67 P: -54 ID: 128 QRS: 50 QRSD: 97 T: 45 QT: 421 QTc: 446 Interpretive Statements ECTOPIC ATRIAL RHYTHM INCOMPLETE RIGHT BUNDLE BRANCH BLOCK NONSPECIFIC T-WAVE ABNORMALITY Compared to ECG 07/19/2022 12:15:51 Ectopic atrial rhythm now present T-wave abnormality now present Sinus rhythm no longer present Electronically Signed On 07-20-2022 6:07:50 SUPERVISOR [employer]LE [employer]ODUCTS by Marisela Schuler M.D. [id number]
[2022-07-19 15:38] LABS: Troponin 5 2HR 150.8 ng/L (0-15)
[2022-07-19 15:42] VITALS: BP 117/64; PULSE 68; RESP 14; O2SAT 100
--- NOTE | 2022-07-19 16:08 | PM.HP ---
Providers/Chief Complaint Primary Care Provider: FLORENCIA Larson Chief Complaint: SOB History of Present Illness Tomás Martins is a 71 year old male with past medical history of bladder cancer status postresection, BPH, lung cancer non-small cell, atrial fibrillation, hypertension recent diagnosis of DVT presented to the ER for complaint of shortness of breath on exertion. Family states that he is able to usually walk on his own going up and down the stairs. However recently he has been going down the stairs and by the time he gets to the floor he gets very short of breath. He has been napping in his recliner more often than usual. He has been sleeping more than usual as well. He could not stand up and was very unsteady on his feet due to weakness. He has been having decreased appetite and poor oral intake the last 1 week. No sick contacts. Complains of a mild runny nose and has a chronic dry cough. He also had some abdominal pain a few days ago but that has resolved by now. Denies any diarrhea, constipation. Patient did have brain radiation done 2 weeks ago here in [place] with Dr. Ivan. He has an upcoming appointment with Dr. Helton his oncologist day after tomorrow on Wednesday. He sees Dr. Yanez for following up regarding his bladder cancer and Dr. Irwin for cardiology and Dr. Helton for oncology. Today he was quite short of breath when he came in. Patient is on 3 L of nasal cannula at home and is at the same here as well. Patient denies any history of heart disease. ER course: BP 117/64 on arrival, pulse 68, respiratory 14, temperature 98.2, saturating 2 L 100% on nasal cannula. Patient had a CTA done and he was found to have acute pulmonary embolism of left lower lobe segmental and multiple subsegmental pulmonary arteries. RV to LV ratio measures 0.8. Right upper lobe mass stable in appearance and size representing primary lung carcinoma. Medications/Allergies Home Medications Medication Instructions Recorded Confirmed Last Taken Type latanoprost 0.005 % eye drops 1 drop ophthalmic (eye) BEDTIME 11/03/19 07/07/22 06/24/22 History (Xalatan) lovastatin 20 mg tablet 20 mg PO BEDTIME 11/03/19 07/07/22 06/24/22 History meloxicam 15 mg tablet 15 mg PO DAILY 11/03/19 07/07/22 06/23/22 History omeprazole 20 mg capsule,delayed 20 mg PO DAILY 11/03/19 07/07/22 06/24/22 History release gabapentin 600 mg tablet 300 mg PO TID 08/05/20 07/07/22 06/24/22 History trazodone 100 mg tablet 150 mg PO BEDTIME 07/30/21 07/07/22 06/24/22 History tamsulosin 0.4 mg capsule (Flomax) 0.4 mg PO BID #180 caps 09/03/21 07/07/22 06/24/22 Rx amlodipine 5 mg tablet 5 mg PO BEDTIME #90 tabs 12/04/21 07/07/22 06/24/22 Rx sotalol 80 mg tablet 40 mg PO BID 01/02/22 07/07/22 06/25/22 07:00 History furosemide 40 mg tablet (Lasix) 40 mg PO DAILY #90 tabs 02/03/22 07/07/22 06/24/22 Rx potassium chloride 20 mEq 20 meq PO DAILY PRN Take with 04/27/22 07/07/22 06/22/22 Rx tablet,extended release(part/cryst) lasix #90 tabs dexamethasone 4 mg tablet 8 mg PO TID #90 tabs 05/20/22 07/07/22 06/24/22 Rx albuterol sulfate 2.5 mg/0.5 mL 2.5 mg inhalation Q20M 06/16/22 07/07/22 06/24/22 History solution for nebulization hydrocodone 7.5 mg-acetaminophen 1 tab PO Q6H PRN pain #10 tabs 06/25/22 07/07/22 Unknown Rx 325 mg tablet apixaban 5 mg (74 tabs) tablets in See Rx Instructions PO .COMPLEX 06/27/22 07/07/22 Unknown Rx a dose pack (Eliquis DVT-PE Treat #74 ea 30D Start) Allergies Allergy/AdvReac Type Severity Reaction Status Date / Time No Known Allergies Allergy Verified 07/07/22 08:36 PFSH Acute PFSH: Medical History (Updated 07/19/22 @ 15:59 by Erik Lemos MD) Benign essential HTN Bladder cancer Large papillary tumor right posterior lateral bladder wall resected 11/15/2019. 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 Elevated blood pressure reading Gross hematuria Lung cancer Malignant neoplasm of urinary bladder neck Metastatic non-small cell lung cancer Nerve pain New onset a-fib Personal history of skin cancer Port-A-Cath in place Postoperative urinary retention Primary cancer of urethra Renal insufficiency Surgical History H/O transurethral destruction of bladder lesion History of bladder surgery perineal urethrostomy Hx of bilateral cataract extraction Hx of cholecystectomy Hx of hand surgery Family History Mother , AT AGE 100 LUNG CANCER Cancer Father , AT AGE 82 COLON CANCER Cancer Denies family history of Diabetes CAD (coronary artery disease) Clotting disorder Dementia Chronic kidney disease (CKD) Suicide Anesthesia complication Bleeding disorder Lung disease Stroke Social History Smoking and tobacco status: former smoker (smoked x 20+ years) Alcohol intake: current Alcohol intake frequency: holidays/special occasions only Adopted: No Caregiver/support person: No Lives independently: No Marital status: Current occupational status: retired History of recent travel: No Current gender identity: Male Vitals/I&O/Wt Last Vital Signs Temp 98.2 F 07/19/22 11:55 Pulse 68 07/19/22 15:42 Resp 14 07/19/22 15:42 BP 117/64 07/19/22 15:42 Pulse Ox 100 07/19/22 15:42 O2 Del Method 07/19/22 15:42 O2 Flow Rate 2 07/19/22 15:42 Weight last 48 hrs Weight 90.718 kg Physical Exam Narrative: General: Alert oriented x3, patient seen laying in bed appearing comfortable at this time on 2 L nasal cannula. Apperas dehydrated, dry mucous membranes. HEENT: Normocephalic, atraumatic, EOMI, breathing normally, no acute distress, no conversational dyspnea. Cardio: Irregularly irregular, not tachycardic at this time. Normal S1-S2, no gross murmurs. Respiratory: Mainly clear to auscultation with mild rhonchi bilaterally. GI: Abdomen soft, nontender, nondistended, bowel sounds + Extremities: Generalized 3+ edema up to thighs bilaterally, taut skin. Family states this is less compared to what it was few days ago. Data 07/19/22 12:10 07/19/22 12:10 Micro: Microbiology 07/19/22 12:28 Blood Culture - Preliminary Blood SPECIMEN COLLECTED A&P Assessment and plan (1) Pulmonary embolism: (2) Port-A-Cath in place: (3) Bladder cancer: (4) Metastatic non-small cell lung cancer: (5) Lung cancer: (6) BPH with obstruction/lower urinary tract symptoms: (7) New onset a-fib: (8) Benign essential HTN: (9) Lung nodule: (10) Atrial fibrillation: (11) SOB (shortness of breath): (12) Leg swelling: Plan #Acute pulmonary embolism, left lower lobe segmental and multiple subsegmental pulmonary arteries #Recent diagnosis of DVT #History of bladder cancer #Non-small cell lung cancer complicated by brain metastases #Atrial fibrillation, rate controlled at this time #Shortness of breath secondary to above #Dehydration, poor oral intake, generalized weakness #Troponin elevation ? Patient recently had radiation done for brain metastases with Dr. Ivan here in [place]. He will be following up with Dr. Helton for further chemotherapy this upcoming Wednesday. He has an appointment coming up. ? Patient has been placed on heparin drip by ER physician. We will continue for now ? Consider switching to therapeutic Lovenox discharge since his PE is most likely provoked due to underlying malignancy ? Patient is dehydrated and has had poor oral intake ? Continue on IV fluids normal saline ? Initial troponin elevated at 213. 2-hour troponin 151. Delta negative. This is most likely secondary to demand ischemia ? I will check echo to look for wall motion abnormality. Patient denies history of heart disease ? Check procalcitonin ? Continue tamsulosin, sotalol, gabapentin ? Hold amlodipine for now, Lasix ? PT OT Full code DVT prophylaxis: On heparin drip at this time Attestations Medical Necessity Statement*: Patient to potentially cross greater than 2 midnight stay for management of acute pulmonary embolism. He will be transitioning to Eliquis at discharge. Coding Level of Care Code Acute Network Security Engineer for [facility] Fwd Diagnoses Pulmonary embolism I26.99 Port-A-Cath in place Z95.828 Bladder cancer C67.9 Metastatic non-small cell lung cancer C34.90 Lung cancer C34.90 BPH with obstruction/lower urinary tract symptoms N40.1; N13.8 New onset a-fib I48.91 Benign essential HTN I10 Lung nodule R91.1 Atrial fibrillation I48.91 SOB (shortness of breath) R06.02 Leg swelling M79.89
[2022-07-19] MEDS: sodium chloride 0.9% 1,000 ML 100 ML IV (16:58)
[2022-07-19] MEDS: pantoprazole 40 mg SDV IVP (16:58)
[2022-07-19 17:01] LABS: Glucose Urine UA Norm (Normal); Ketones Urine Negative (Negative); Protein Urine Neg (Negative); Specific Gravity, Urine 1.005 (1.005-1.030); Urine Appearance Clear (CLEAR); Urine Color Yellow (Yellow); pH Urine 6 (5-7)
[2022-07-19 17:02] LABS: Add Urine Microscopic? YES; Bilirubin Urine Neg (Negative); Blood Urine 2+ (Negative); Leukocyte Esterase Urine Negative (Negative); Nitrate Urine Negative (Negative); Urobilinogen Urine 4 mg/dL (Negative)
[2022-07-19 17:03] LABS: Add Urine Culture? No; Bacteria Urine TRACE /hpf; RBC Urine 0-4 /hpf (0-2); Squamous Epithelial Cell Urine RARE /hpf (0-5); WBC Urine 0-4 /hpf (0-5)
[2022-07-19] MEDS: heparin 5,000 unit/mL INJ 1 mL IV (17:07)
[2022-07-19] MEDS: heparin drip 25,000 UNIT/500 ML PREMIX 32 UNIT IV (17:16)
[2022-07-19 17:24] LABS: Lactic Sepsis W/Reflex 0.8 mmol/L (0.5-2.2)
[2022-07-19 17:35] LABS: NT Pro B Type Natriuretic Pept 2184 pg/mL (0-125); Procalcitonin 2.49 ng/mL (0-0.5)
--- NOTE | 2022-07-19 17:43 | PC.NURSE ---
Attempted to call report to CSU at [phone] and [phone]
--- NOTE | 2022-07-19 18:23 | ECG_ITS ---
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 Measurements Intervals [place] Rate: 69 P: 44 [place]: 171 QRS: 25 QRSD: 98 T: 47 QT: 417 QTc: 448 Interpretive Statements SINUS RHYTHM INCOMPLETE RIGHT BUNDLE BRANCH BLOCK [90+ ms QRS DURATION, TERMINAL R IN V1/V2, 40+ ms S IN I/aVL/V4/V5/V6] MINIMAL ST DEPRESSION [0.025+ mV ST DEPRESSION] Compared to ECG 07/19/2022 14:25:14 ST (T wave) deviation now present Ectopic atrial rhythm no longer present T-wave abnormality no longer present Electronically Signed On 07-21-2022 14:13:57 STRADDLE BUGGY OPERATOR by Pawan Pathak M.D. [id number]
[2022-07-19 19:10] LABS: Troponin 5 6HR Delta -17.2 ng/L (0-12)
[2022-07-19 19:15] LABS: Troponin 5 6HR 195.8 ng/L (0-15)
--- NOTE | 2022-07-19 19:16 | USCV_ITS ---
Martins Tomás Age: 71 Gender: M : 1950 Exam Date: 07/19/2022 19:50 Ordering Phys: Aura Pablo MD Technologist: Anaya Sheppard Exam Location: [facility] Indication: PE, SOB BP: 102 / 63 HR: 120 Rhythm: Sinus Technical Quality: Adequate MEASUREMENTS (Male / Female) Normal Values 2D ECHO LV Chamber Size 3.8 cm RV Chamber Size 4.4 cm LVOT Diameter 2.1 cm LV Ejection Fraction MOD 2C 31.3 % LV Ejection Fraction 2C AL 31.1 % LA Diameter 2.8 cm LA Width 3.6 cm LA Height 4.2 cm RA Width 4.6 cm RA Height 4.6 cm Aorta at Sinotubular Diameter 3.5 cm IVC Diameter 2.0 cm M-MODE Aortic Annulus Diameter 3.6 cm LA Ao Ratio MM 0.9 MV E Point Septal Separation 0.8 cm DOPPLER AV Peak Velocity 190.7 cm/s LVOT Peak Velocity 85.7 cm/s AV Area Cont Eq vti 1.6 cm squared AV Area Cont Eq pk 1.5 cm squared MV Area PHT 2.3 cm squared Mitral E to A Ratio 0.9 MV E' Velocity 47.5 cm/s Mitral E to MV E' Ratio 11.9 Mitral E to LV E' Lateral Ratio 11.9 Mitral E to LV E' Septal Ratio 11.9 TR Peak Velocity 149.3 cm/s TR Peak Gradient 8.9 mmHg TR Mean Velocity 92.8 cm/s TR Mean Gradient 4.0 mmHg TR Velocity Time Integral 29.4 cm TV Peak E Velocity 70.0 cm/s Right Atrial Pressure 3.0 mmHg Pulmonary Artery Systolic Pressu 11.9 mmHg RV Acceleration Time 0.1 s RV Ejection Time 0.4 s RV AcT/ET 0.2 FINDINGS Left Ventricle Normal left ventricular size, systolic function and wall thickness, with no regional wall motion abnormalities. Left ventricular ejection fraction is estimated at 60-65 %. Normal diastolic function. Right Ventricle Normal right ventricular size and systolic function. Normal right ventricular systolic pressure. Right Atrium Normal right atrial size. Left Atrium Normal left atrial size. Mitral Valve Structurally normal mitral valve. No mitral valve stenosis. Trace mitral valve regurgitation. Aortic Valve Structurally normal trileaflet aortic valve. No aortic valve stenosis. No aortic valve regurgitation. Tricuspid Valve Structurally normal tricuspid valve. No tricuspid valve stenosis. Trace tricuspid valve regurgitation. Pulmonic Valve Pulmonic valve not well visualized. Pericardium No pericardial effusion. Aorta Normal size aortic root and proximal ascending aorta. IVC Normal IVC dimension with >50% respiratory change of the inferior vena cava. CONCLUSIONS 1. Normal left ventricular size, systolic function and wall thickness, with no regional wall motion abnormalities. Left ventricular ejection fraction is estimated at 60-65 %. Normal diastolic function. 2. Normal right ventricular size and systolic function. 3. When compared to study dated 05/27/2020, left ventricular systolic function has improved. Marisela Schuler MD (Electronically Signed) Final Date: 20 July 2022 07:58 S
--- NOTE | 2022-07-19 19:30 | PC.NURSE ---
Spoke with regarding Heparin gtt started at the wrong rate and patient received bolus greater than max. ordered to decrease gtt to correct rate according to protocol and check a STAT PTT and follow protocol based on the results.
[2022-07-19] MEDS: sotalol 80 mg Tablet 40 MG PO (20:45)
[2022-07-19] MEDS: tamsulosin 0.4 mg Capsule PO (20:45)
[2022-07-19] MEDS: gabapentin 300 mg Capsule PO (20:46)
[2022-07-19] MEDS: trazodone 100 mg Tablet 150 MG PO (20:47)
[2022-07-19 20:52] VITALS: BP 108/76; PULSE 69; RESP 21; TEMP 37.2; O2SAT 98
[2022-07-19 20:57] LABS: Partial Thromboplastin Time > 250.0 SECONDS (23.9-36.7)
[2022-07-19 22:00] VITALS: PULSE 68
[2022-07-19 22:08] LABS: Adenovirus Not Detected (NOT DETECT); Chlamydia Pneumoniae Not Detected (NOT DETECT); Coronavirus 229E,HKU1,NL63,OC4 Not Detected (NOT DETECT); Human Metapneumovirus Not Detected (NOT DETECT); Human Rhinovirus/Enterovirus Not Detected (NOT DETECT); Influenza A Not Detected (NOT DETECT); Influenza A H1 Not Detected (NOT DETECT); Influenza A H1-2009 Not Detected (NOT DETECT); Influenza A H3 Not Detected (NOT DETECT); Influenza B Not Detected (NOT DETECT); Mycoplasma Pneumoniae Not Detected (NOT DETECT); Parainfluenza Virus Type 1 Not Detected (NOT DETECT); Parainfluenza Virus Type 2 Not Detected (NOT DETECT); Parainfluenza Virus Type 3 Not Detected (NOT DETECT); Parainfluenza Virus Type 4 Not Detected (NOT DETECT); Respiratory Syncytial Virus A Not Detected (NOT DETECT); Respiratory Syncytial Virus B Not Detected (NOT DETECT); SARS-COV-2 Not Detected (NOT DETECT)
--- NOTE | 2022-07-19 23:35 | PC.NURSE ---
Spoke with regarding multiple attempts at inserting a mary catheter but unsuccessful, meeting resistance. Attempted with mary as small as 8french and also coude catheter with no success. Bladderscan revealed >728. to discuss with Urology.
[2022-07-20] VITALS (65 sets, daily range): BP systolic 96–155; BP diastolic 57–83; PULSE 63–76; RESP 13–24; TEMP 36.2–37.4; O2SAT 87–100
--- NOTE | 2022-07-20 03:07 | PC.NURSE ---
Spoke with regarding patients IV fluids. IV fluids are to be put on hold until patient is seen by .
[2022-07-20] MEDS: piperacillin-tazobactam 3.375 GM in sodium chloride 0.9% (plus) 50 ML IV (03:25)
[2022-07-20 04:03] LABS: Basophils % 0.7 %; Eosinophils # 0.1 10^3/uL (0.0-0.8); Eosinophils % 2.2 %; Hemoglobin 7.5 g/dL (11.7-16.6); Lymphocytes # 1.1 10^3/uL (0.8-4.8); Lymphocytes % 20.1 %; Mean Corpuscular Hemoglobin 28.1 pg (28.0-34.0); Mean Corpuscular Volume 93.6 fl (80-94); Mean Platelet Volume 10.9 fL (7.4-10.4); Monocytes # 0.6 10^3/uL (0.2-0.9); Monocytes % 10.1 %; Neutrophils # 3.61 10^3/uL (1.8-7.7); Neutrophils % 66.7 %; Nucleated Red Blood Cells % 0 %; Platelet Count 227 10^3/cmm (130-400); Red Blood Count 2.67 10^6/uL (4.1-5.3); White Blood Count 5.4 10^3/uL (4.0-10.0)
[2022-07-20 04:16] LABS: Alanine Aminotransferase 9 U/L (0-41); Albumin Level 2.8 g/dL (3.5-5.2); Alkaline Phosphatase 173 U/L (40-130); Anion Gap 12.7 (5-19); Aspartate Amino Transferase 23 U/L (0-40); Blood Urea Nitrogen 13 mg/dL (8-23); Calcium 8.2 mg/dL (8.5-10.5); Carbon Dioxide 29 mmol/L (22-29); Chloride 101 mmol/L (98-107); Globulin 2.9 g/dL (1.3-4.6); Glucose 93 mg/dL (65-115); Magnesium 1.9 mg/dL (1.7-2.3); Osmolality Calculated 288 mOsm/kg (285-295); Potassium 3.7 mmol/L (3.5-5.1); Sodium 139 mmol/L (136-145); Total Bilirubin 1.7 mg/dL (0.15-1.2); Total Protein 5.7 g/dL (6.6-8.7)
--- NOTE | 2022-07-20 04:17 | P.PN_ITS ---
Subjective Subjective: Low hemoglobin noted this morning, repeat H&H Hemodynamically stable Currently on therapeutic anticoagulating agent Echo has been requested on admission New onset PE Patient is full code, Vitals/I&O/Wt Last Vital Signs Temp 96.8 F L 07/20/22 04:00 Pulse 75 07/20/22 04:00 Resp 20 H 07/20/22 04:00 BP 158/74 07/20/22 04:00 Pulse Ox 94 07/20/22 04:00 O2 Del Method 07/20/22 04:00 O2 Flow Rate 2 07/19/22 15:42 07/19/22 07/19/22 07/20/22 14:59 22:59 06:59 Intake Total 1231.4 / 1231.4 1060 / 2291.4 Balance 1231.4 / 1231.4 1060 / 2291.4 Weight last 48 hrs Weight 90.718 kg Physical Exam Narrative: Clinical signs of fluid overload Bilateral extremity edema 3+ Awake and alert Nonfocal neuro exam Currently saturating well on 2 L nasal cannula No active signs of bleeding Abdomen soft S1, S2 Focal neuro exam Data 07/20/22 02:39 07/20/22 02:39 Micro: Microbiology 07/19/22 12:28 Blood Culture - Preliminary Blood SPECIMEN COLLECTED A&P Assessment and plan (1) Pulmonary embolism: (2) Port-A-Cath in place: (3) Bladder cancer: (4) Metastatic non-small cell lung cancer: (5) Lung cancer: (6) BPH with obstruction/lower urinary tract symptoms: (7) Bladder cancer: Qualifiers: Bladder location: lateral wall Qualified Code(s): C67.2 - Malignant neoplasm of lateral wall of bladder (8) Postoperative urinary retention: Plan New onset pulmonary embolism: Significant troponin leakage with high BNP concern for right heart strain currently on therapeutic anticoagulating agent, will follow up with echo Currently hemodynamically stable Noticed low H&H this morning, repeat H&H at 7 AM History of bladder cancer recent brain radiation following up with Dr. Helton starting this Wednesday, Dr. Yanez to see and evaluate in the morning, RN was unable to place a Bentley catheter last night, creatinine is normal We will request PT Acute on chronic anemia No signs of active bleed Patient is severely anemic with extremely low iron levels, will give him 1 unit PRBC along with Venofer and folic acid and B12 supplements Patient is stating previous colonoscopies had polyps removed patient is denying room stools hemoptysis blood in urine Hold heparin until we get him blood transfusion Patient is full code Cardiac diet Patient has failed Eliquis, most likely will need injectable Lovenox at the time of discharge Bentley catheter has been placed by Dr. Yanez Patient to keep Bentley catheter until the day of discharge Attestations Medical Necessity Statement*: Continue medical management for now Time Spent in Patient Care: 40 Coding Level of Care Code Acute Specialty Plant Supervisor for Chg Fwd Diagnoses Pulmonary embolism I26.99 Port-A-Cath in place Z95.828 Bladder cancer C67.9 Metastatic non-small cell lung cancer C34.90 Lung cancer C34.90 BPH with obstruction/lower urinary tract symptoms N40.1; N13.8 Bladder cancer C67.2 Bladder location: lateral wall Postoperative urinary retention N99.89; R33.8
[2022-07-20 04:20] LABS: Partial Thromboplastin Time 145.6 SECONDS (23.9-36.7)
[2022-07-20 07:54] LABS: Hematocrit 24.9 % (42.0-52.0); Hemoglobin 7.5 g/dL (11.7-16.6)
[2022-07-20 08:29] LABS: Iron 17 ug/dL (59-158); Percent Saturation 13.6 % (20-50); Total Iron Binding Capacity 125 mcg/dl; Unsaturated Iron Binding 108 ug/dL (112-347)
[2022-07-20 08:44] LABS: Ferritin 2184 ng/mL (30-400)
[2022-07-20 08:45] LABS: Vitamin B12 409 pg/mL (232-1245)
[2022-07-20] MEDS: gabapentin 300 mg Capsule PO ×3 (08:47→20:47)
[2022-07-20] MEDS: pantoprazole DR 40 mg Tablet PO (08:47)
[2022-07-20] MEDS: sotalol 80 mg Tablet 40 MG PO ×2 (08:48→18:07)
[2022-07-20] MEDS: tamsulosin 0.4 mg Capsule PO ×2 (08:48→18:09)
--- NOTE | 2022-07-20 09:21 | PC.OT ---
Checked with RN, pt. is waiting for mary catheter placement. Will check back for OT eval attempt if time allows.
--- NOTE | 2022-07-20 10:45 | PC.CHAP ---
Pastoral Care Encounter/Spiritual Assessment Type of Contact [] Declined shelf stocker visit [] Patient/Family/Request visit [] Outpatient visit [] Follow-up visit [] Physician referral [] Code/Alert x[x] Routine visit [] Staff referral [] Actively dying [] Patient sleeping [] Family support [] [] Out of room [] Palliative care [] [] Receiving care in room [] Pre-surgical visit [] Trauma [] Long length of stay [] ICU visit [] Other: Relational/Emotional Strength [x] Patient feels connected with others/family/visitors/staff [] Distress [] Loneliness/isolation [] Abandonment Spirituality of Patient [x] Person of [place]cia [] Attends Anglican of their [place] [x] Believes in Prayer [] Reads Bible or Baptist materials [] There are Spiritual issues to be addressed Meter/Relay Technician Interventions [x] Prayer [x] Active listening x] Non-anxious presence [x] Spiritual/emotional support [] Crisis/trauma care [] Spiritual counseling [] Bereavement support [] Provided bereavement packet [] Provided Bible/devotional materials [] Provided toy/stuffed animal, coloring book to patient or family member [] Provided Communion [] Anointing/[place] [] Salvation [x] Completed spiritual assessment [] Other: Impact on Illness or Injury [] Angry [] Fearful [] Anxious [] Often cries [] Exhaustion [] Unable to work [] Unable to attend sikh [] Unable to walk/stand [] Unable to read [] Unable to drive [] Unable to eat/drink [] Unable to sleep [] Unable to be with family [] Patient intubated [] Other: Summary Time spent with patient
--- NOTE | 2022-07-20 12:10 | P.CONIM_ITS ---
Providers/Reason For Consult Consulting Physician/Specialty*: Urology/Yanez Reason for Consult*: Urinary retention, inability to pass catheter Requesting Physician: Dr. Hoskins Attending Physician: Nancy Hoskins MD Primary Care Provider: FLORENCIA Larson History of Present Illness History of Present Illness Tomás Martins is a 71 year old male well-known to me for history of recurrent bladder and urethral TCCA. His last visit was in February where he was found to have 2 recurrences within his bladder but none in the urethra. Plans at that point based on his failure to improve with local as well as systemic therapy was to have him evaluated for extirpative therapy. He is already been treated with partial ureterectomy and perineal urethrostomy. Since that time he has had multiple other medical problems including discovery apparently metastatic lung cancer, DVT, atrial fibrillation, PE. He stated that he was just not able to get up to [place] for that consult. At least once previously he was found to have some stenosis of the perineal urethrostomy and required dilation at time of cystoscopy. Symptoms have been slowing down and dribbling of his stream for some time. He has been known to have a bladder that is not very sensate. Has had chronic elevated PVRs for very long time but he states that this is worse than usual. No fever or chills. Multiple attempts by the nursing staff last night were unsuccessful. I was consulted for further evaluation of his urologic problems. On physical exam he was noted to have a tender palpable bladder. Genitalia were normal. Perineal urethrostomy was without any acute inflammatory changes. PROCEDURE: Urethral dilation with sounds He was prepped and draped in the usual sterile fashion. A flexible guidewire was able thankfully to be manipulated through the perineal urethrostomy into the bladder. The wire was advanced so that there was a significant amount, most of it, in the bladder. An Amplatz dilator set was utilized first passing the steak and then the outer sheath over the snake. The inner sheath was backed out confirming good drainage through the outer sheath. These were allowed to sit for a few minutes while other sounds prepared. A 12 Kinyarwanda and then a 14 Kinyarwanda straight in and out catheters were converted to skull valley tip and used as dilation sounds. Both passed without excessive trauma. They were passed over the guidewire with good return each time. A 12 Kinyarwanda coud? tip Bentley catheter was then converted to a skull valley tip catheter and then advanced over the wire into the bladder. 10 cc were placed in the balloon and the balloon was confirmed to be functioning before removing the wire. The catheter was placed to dependent drainage and secured to his right thigh with a StatLock. Catheter was still draining when I left the room. Recommendations: 1. Maintain Bentley catheter for at least 3 days for passive dilation or until discharge if later. 2. I do not think he needs to go home with a catheter as long as he has at least 3 days indwelling. 3. I will see him back in my office in roughly 6 weeks for prospective treatment via dilation. 4. We will also reevaluate for his needs based on his bladder cancer. It sounds as though he has other, potentially more sinister comorbidities currently ongoing. Review of Systems Const: Denies: fever(s) or chills Eyes: Denies: change in vision or yellow eyes ENMT: Denies: hoarseness or mouth pain Card: Denies: chest pain, palpitations or syncope Resp: Reports: dyspnea and productive cough; Denies: wheezing or hemoptysis GI: Reports: abdominal pain (Primarily suprapubic and not severe); Denies: nausea or vomiting : Reports: difficulty urinating, urinary hesitancy and change in urine stream; Denies: flank pain Musc: Reports: muscle weakness Skin/Breast: Denies: rash or sores Neuro: Reports: confusion; Denies: Slurred speech present Psych: Reports: depression and memory loss Endo: Denies: polyuria or flushing Hang/Lymph: Reports: easy bruising and enlarged lymph nodes (Recently biopsied clavicular node) Medications/Allergies Home Medications Medication Instructions Recorded Confirmed Last Taken Type latanoprost 0.005 % eye drops 1 drop ophthalmic (eye) BEDTIME 11/03/19 07/07/22 06/24/22 History (Xalatan) lovastatin 20 mg tablet 20 mg PO BEDTIME 11/03/19 07/07/22 06/24/22 History meloxicam 15 mg tablet 15 mg PO DAILY 11/03/19 07/07/22 06/23/22 History omeprazole 20 mg capsule,delayed 20 mg PO DAILY 11/03/19 07/07/22 06/24/22 History release gabapentin 600 mg tablet 300 mg PO TID 08/05/20 07/07/22 06/24/22 History trazodone 100 mg tablet 150 mg PO BEDTIME 07/30/21 07/07/22 06/24/22 History tamsulosin 0.4 mg capsule (Flomax) 0.4 mg PO BID #180 caps 09/03/21 07/07/22 06/24/22 Rx amlodipine 5 mg tablet 5 mg PO BEDTIME #90 tabs 12/04/21 07/07/22 06/24/22 Rx sotalol 80 mg tablet 40 mg PO BID 01/02/22 07/07/22 06/25/22 07:00 History furosemide 40 mg tablet (Lasix) 40 mg PO DAILY #90 tabs 02/03/22 07/07/22 Rx potassium chloride 20 mEq 20 meq PO DAILY PRN Take with 04/27/22 07/07/22 06/22/22 Rx tablet,extended release(part/cryst) lasix #90 tabs dexamethasone 4 mg tablet 8 mg PO TID #90 tabs 05/20/22 07/07/22 06/24/22 Rx albuterol sulfate 2.5 mg/0.5 mL 2.5 mg inhalation Q20M 06/16/22 07/07/22 06/24/22 History solution for nebulization hydrocodone 7.5 mg-acetaminophen 1 tab PO Q6H PRN pain #10 tabs 06/25/22 07/07/22 Unknown Rx 325 mg tablet apixaban 5 mg (74 tabs) tablets in See Rx Instructions PO .COMPLEX 06/27/22 07/07/22 Unknown Rx a dose pack (EliquWork in Field DVT-PE Treat #74 ea 30D Start) Allergies Allergy/AdvReac Type Severity Reaction Status Date / Time No Known Allergies Allergy Verified 07/07/22 08:36 Current Medications Generic Name Dose Route Start Last Admin Trade Name Freq PRN Reason Stop Dose Admin Gabapentin 300 mg 07/19/22 21:00 07/20/22 08:47 Gabapentin 300 Mg Capsule PO 300 mg TID RUBEN Administration Heparin Sodium (Porcine) 0 unit 07/19/22 15:46 07/19/22 17:07 Heparin 5,000 Unit/Ml Inj 1 Ml IV 7,200 unit PRN PRN Administration Heparin weight-base protocol Protocol Heparin Sodium/Sodium Chloride 25,000 unit in 500 mls @ 0 mls/hr 07/19/22 16:00 07/20/22 08:15 Heparin Drip IV 0 unit/kg/hr .Q0M RUBEN 0 mls/hr Titration Protocol Per Protocol Latanoprost 1 drop 07/19/22 21:00 07/19/22 22:04 Latanoprost 0.005% Op Soln 2.5 Ml Btl EYE-BOTH Not Given BEDTIME RUBEN Pantoprazole Sodium 40 mg 07/19/22 16:15 07/19/22 16:58 Pantoprazole 40 Mg Sdv IVP 40 mg Q24H RUBEN Administration Pantoprazole Sodium 40 mg 07/20/22 09:00 07/20/22 08:[address] 40 Mg Tablet PO 40 mg DAILY RUBEN Administration Sotalol HCl 40 mg 07/19/22 19:05 07/20/22 08:48 Sotalol 80 Mg Tablet PO 40 mg BID RUBEN Administration Tamsulosin HCl 0.4 mg 07/19/22 19:05 07/20/22 08:48 Tamsulosin 0.4 Mg Capsule PO 0.4 mg BID RUBEN Administration Trazodone HCl 150 mg 07/19/22 21:00 07/19/22 20:47 Trazodone 100 Mg Tablet PO 150 mg BEDTIME RUBEN Administration PFSH Acute PFSH: Medical History (Updated 07/20/22 @ 12:21 by Kenji Yanez MD) Benign essential HTN Bladder cancer Large papillary tumor right posterior lateral bladder wall resected 11/15/2019. 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 Elevated blood pressure reading Gross hematuria Lung cancer Malignant neoplasm of urinary bladder neck Metastatic non-small cell lung cancer Nerve pain New onset a-fib Personal history of skin cancer Port-A-Cath in place Postoperative urinary retention Primary cancer of urethra Renal insufficiency Urethral cancer Urethral stricture Surgical History H/O transurethral destruction of bladder lesion History of bladder surgery perineal urethrostomy Hx of bilateral cataract extraction Hx of cholecystectomy Hx of hand surgery Family History Mother , AT AGE 100 LUNG CANCER Cancer Father , AT AGE 82 COLON CANCER Cancer Denies family history of Diabetes CAD (coronary artery disease) Clotting disorder Dementia Chronic kidney disease (CKD) Suicide Anesthesia complication Bleeding disorder Lung disease Stroke Social History Smoking and tobacco status: former smoker (smoked x 20+ years) Alcohol intake: current Alcohol intake frequency: holidays/special occasions only Adopted: No Caregiver/support person: No Lives independently: No Marital status: Current occupational status: retired History of recent travel: No Current gender identity: Male Vitals/I&O/Wt Last Vital Signs Temp 98.6 F 07/20/22 11:40 Pulse 67 07/20/22 11:40 Resp 18 07/20/22 11:40 BP 114/68 07/20/22 11:40 Pulse Ox 97 07/20/22 11:40 O2 Del Method 07/20/22 04:00 O2 Flow Rate 2 07/20/22 04:00 07/19/22 07/20/22 07/20/22 22:59 06:59 14:59 Intake Total 1231.4 / 1231.4 1207.333 / 2438.733 103.433 / 103.433 Output Total 900 / 900 Balance 1231.4 / 1231.4 1207.333 / 2438.733 -796.567 / -796.567 Weight last 48 hrs Weight 200 lb Physical Exam Const: COMMON NORMALS: no acute distress, alert and well nourished GENERAL APPEARANCE: well kempt and well developed ORIENTATION/CONSCIOUSNESS: not confused HENMT: COMMON NORMALS: normocephalic HEAD & SCALP: normal to inspection and normocephalic Eye: COMMON NORMALS: conjunctivae normal and no scleral icterus CONJUN CTIVA: Yes conjunctivae normal Neck/C-Spine: GENERAL: Yes normal visual inspection Lymph: OTHER: No groin lymphadenopathy. Significant lower extremity edema Resp: COMMON NORMALS: normal respiratory effort EFFORT & INSPECTION: Yes able to speak in complete sentences, No labored and No Actively coughing Cardio: OTHER: Irregular rate and rhythm GI: OTHER: Bladder palpable. No other masses. No other areas of tenderness. : OTHER: Normal male genitalia. Bladder is distended and slightly tender. Back/Pelvis: OTHER: No CVA tenderness Extremity: OTHER: Bilateral lower extremity edema Neuro: COMMON NORMALS: no focal motor deficits SENSORIUM/ORIENTATION: Yes alert Psych: APPEARANCE: Yes grossly normal and Yes well kempt ATTITUDE: Yes calm and Yes engaged Skin: COMMON NORMALS: no rashes or lesions noted and no jaundice GENERAL SKIN EXAM: no rashes or lesions noted Data 07/20/22 07:40 07/20/22 02:39 Micro: Microbiology 07/19/22 07:40 Blood Culture - Preliminary Blood SPECIMEN COLLECTED 07/19/22 12:28 Blood Culture - Preliminary Blood SPECIMEN COLLECTED A&P Assessment and plan (1) Urethral stricture: Dilated the bedside today with good success. Bentley left indwelling for passive dilation. He will need reevaluation and urethral dilation. (2) Bladder cancer: Technically needs a cystectomy and completion urethrectomy and prostate removal. With recent diagnosis of metastatic lung disease as well as other comorbidities of DVT and pulmonary embolism I think treatment for bladder cancer right now is put on the back burner. I will plan on following up with him on the outpatient basis to review where we stand with that. Qualifiers: Bladder location: lateral wall Qualified Code(s): C67.2 - Malignant neoplasm of lateral wall of bladder (3) BPH with obstruction/lower urinary tract symptoms: (4) Urethral cancer: (5) Incomplete bladder emptying: Chronic. 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 (6) Leg swelling: DVT recently diagnosed (7) Pulmonary embolism: New issue Coding Level of Care Code Acute Aviation All Source Intelligence for [facility] Fwd Diagnoses Urethral stricture N35.919 Bladder cancer C67.2 Bladder location: lateral wall BPH with obstruction/lower urinary tract symptoms N40.1; N13.8 Urethral cancer C68.0 Incomplete bladder emptying R33.9 Leg swelling M79.89 Pulmonary embolism I26.99
[2022-07-20] MEDS: iron sucrose 200 MG in sodium chloride 0.9% (100 ml) 100 ML 220 MG IV (13:59)
[2022-07-20] MEDS: enoxaparin 100 mg/mL Syringe 90 MG SUBCUT (16:01)
[2022-07-20] MEDS: pantoprazole 40 mg SDV IVP (16:02)
[2022-07-20 18:00] LABS: Hematocrit 29.7 % (42.0-52.0); Hemoglobin 9.2 g/dL (11.7-16.6)
[2022-07-20] MEDS: trazodone 100 mg Tablet 150 MG PO (20:46)
[2022-07-21] VITALS (9 sets, daily range): BP systolic 92–136; BP diastolic 61–73; PULSE 63–78; RESP 15–20; TEMP 36.6–38; O2SAT 91–99
[2022-07-21] MEDS: enoxaparin 100 mg/mL Syringe 90 MG SUBCUT ×2 (03:55→17:05)
[2022-07-21 04:48] LABS: Basophils % 0.4 %; Eosinophils # 0.2 10^3/uL (0.0-0.8); Eosinophils % 2.8 %; Hematocrit 27.1 % (42.0-52.0); Hemoglobin 8.5 g/dL (11.7-16.6); Lymphocytes % 19.4 %; Mean Corpuscular HGB Conc 31.4 g/dL (30.0-36.0); Mean Corpuscular Hemoglobin 28.1 pg (28.0-34.0); Mean Corpuscular Volume 89.7 fl (80-94); Mean Platelet Volume 9.9 fL (7.4-10.4); Monocytes # 0.5 10^3/uL (0.2-0.9); Monocytes % 9.5 %; Neutrophils # 3.61 10^3/uL (1.8-7.7); Neutrophils % 67.3 %; Nucleated Red Blood Cells % 0 %; Platelet Count 226 10^3/cmm (130-400); Red Blood Count 3.02 10^6/uL (4.1-5.3); Red Cell Distribution Width 15.9 % (12.1-15.1); White Blood Count 5.4 10^3/uL (4.0-10.0)
--- NOTE | 2022-07-21 08:39 | CT_ITS ---
WS: [id number] CT HEAD TECHNIQUE: Noncontrast CT of the head obtained from the skullbase to the vertex. CLINICAL INFORMATION: increased weakness COMPARISON: None. DLP: 1013.[address] scans at [facility] use at least one of these dose optimization techniques: automated e xposure control; mA and/or kV adjustment per patient size (includes targeted exams where dose is matc hed to clinical indication); or iterative reconstruction. FINDINGS: No evidence of intracranial hemorrhage or mass effect. Ventricular system and basal cisterns are spears nt. Moderate small vessel changes with moderate parenchymal volume loss worse in the frontal lobes. 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 Low-attenuation lesion i n LEFT cerebellar hemisphere was present on the prior MRI consistent with treated metastasis. No sign ificant mass effect. This appears slightly smaller compared to the prior MRI. Chronic lacunar infarct LEFT posterior limb internal capsule unchanged as the prior MRI. Evidence of chronic ischemia in the deep LEFT frontoparietal white matter. Paranasal sinuses and mastoid air cells well aerated. Normal posterior nasopharynx. CT/CT head wo con* [id number] IMPRESSION: 1. No evidence of intracranial hemorrhage or mass effect. 2. Moderate small vessel changes. Moderate parenchymal volume loss worse in th e frontal lobes. 3. 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 No significant mass effect. 4. No other significant findings.
[2022-07-21] MEDS: cyanocobalamin 1,000 mcg Tablet 1000 MCG PO (09:31)
[2022-07-21] MEDS: gabapentin 300 mg Capsule PO ×3 (09:31→20:40)
[2022-07-21] MEDS: pantoprazole DR 40 mg Tablet PO (09:31)
[2022-07-21] MEDS: sotalol 80 mg Tablet 40 MG PO (09:31)
[2022-07-21] MEDS: tamsulosin 0.4 mg Capsule PO ×2 (09:31→17:05)
[2022-07-21] MEDS: folic acid 1 mg Tablet PO (09:31)
--- NOTE | 2022-07-21 10:33 | P.PN_ITS ---
Subjective Subjective: Patient seems very fatigued and lethargic He does have shoulder girdle weakness he was not able to lift his left arm 90 degrees above the floor however he was able to do so with the help of his shou lder he is able to answer a few simple questions He was not able to tell me the answer of 100-7, he is able to tell me the president, his date of , he is AO x2 I have requested a stat CT head just to make sure he is not having any intracranial bleed from his metastatic lesion because a therapeutic Lovenox CT had is unremarkable Vitals/I&O/Wt Last Vital Signs Temp 98.2 F 07/21/22 07:25 Pulse 66 07/21/22 07:25 Resp 17 07/21/22 07:25 BP 126/66 07/21/22 07:25 Pulse Ox 96 07/21/22 07:25 O2 Del Method 07/21/22 07:25 O2 Flow Rate 2 07/20/22 04:00 07/20/22 07/21/22 07/21/22 22:59 06:59 14:59 Intake Total 520 / 623.433 480 / 480 Output Total 100 / 1000 Balance 520 / -276.567 -100 / -376.567 480 / 480 Weight last 48 hrs Weight 90.718 kg Physical Exam Narrative: Patient is fatigued and lethargic Currently on 2 L of oxygen Clinically fluid overloaded Bilateral lower extremity edema Awake and alert No focal deficits Able to answer simple questions Anisocoria, right-sided cataract surgery history Shoulder girdle weakness Bilateral lower extremity swelling Abdomen soft Urinary Catheter Management: Bentley: Cath Placed During This Visit: yes Reason for Continuing Indwelling Catheter: Acute Urinary Retention or Obstruction Urinary Catheter Date of Insertion: 07/20/22 Data 07/21/22 04:39 07/20/22 02:39 Micro: Microbiology 07/20/22 11:10 Urine Culture - Preliminary Urine Catheterized 07/19/22 07:40 Blood Culture - Preliminary Blood NEGATIVE TO DATE 07/19/22 12:28 Blood Culture - Preliminary Blood NEGATIVE TO DATE A&P Assessment and plan (1) BPH with obstruction/lower urinary tract symptoms: (2) Bladder cancer: Qualifiers: Bladder location: lateral wall Qualified Code(s): C67.2 - Malignant neoplasm of lateral wall of bladder (3) Postoperative urinary retention: (4) Benign essential HTN: (5) Cancer of posterior wall of urinary bladder: (6) Urethral cancer: (7) Urethral stricture: (8) Pulmonary embolism: (9) Port-A-Cath in place: (10) Bladder cancer: (11) Metastatic non-small cell lung cancer: Plan Metastatic lung cancer, bladder cancer, Cerebellar lesions noted on previous MRI Patient is weak and lethargic New onset PE currently on therapeutic Lovenox Iron deficiency anemia status post 1 bag of iron and 1 unit PRBC Would like to discuss goals of care with family Dietitian consulted for his poor p.o. intake Bladder outlet obstruction Bentley catheter was placed with Dr. Yanez Patient has failed Eliquis which he was taking for DVT Full code for now Regular diet Bradycardic episodes noted decrease the dose of sotalol to [address] head was requested when I noticed that he was not able to lift his left arm 90 degrees above the floor however CT head is unremarkable, waxing and waning mentation as per the nursing staff as the days goes by, his mentation improves Attestations Medical Necessity Statement*: Continue medical management Time Spent in Patient Care: 30 minutes Coding Level of Care Code Acute Spiral Tube Winder for Chg Fwd Diagnoses BPH with obstruction/lower urinary tract symptoms N40.1; N13.8 Bladder cancer C67.2 Bladder location: lateral wall Postoperative urinary retention N99.89; R33.8 Benign essential HTN I10 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
--- NOTE | 2022-07-21 10:38 | PC.OT ---
Therapist discussed patient with RN who requested to hold therapy today d/t PE and awaiting CT results. Will attempt OT evaluation tomorrow. Hong Huerta OTR/L
[2022-07-21] MEDS: methylphenidate 10 mg Tablet 5 MG PO (12:42)
[2022-07-21] MEDS: iron sucrose 200 MG in sodium chloride 0.9% (100 ml) 100 ML 220 MG IV (13:47)
[2022-07-21] MEDS: sotalol 80 mg Tablet 20 MG PO (17:05)
[2022-07-21] MEDS: pantoprazole 40 mg SDV IVP (17:06)
[2022-07-21] MEDS: trazodone 100 mg Tablet 150 MG PO (20:40)
[2022-07-21] MEDS: latanoprost 0.005% Op Soln 2.5 mL Btl 1 DROP EYE-BOTH (21:24)
[2022-07-22 02:57] LABS: Basophils % 0.5 %; Eosinophils # 0.1 10^3/uL (0.0-0.8); Eosinophils % 2.1 %; Hematocrit 27.9 % (42.0-52.0); Hemoglobin 8.5 g/dL (11.7-16.6); Lymphocytes # 1.1 10^3/uL (0.8-4.8); Lymphocytes % 17.9 %; Mean Corpuscular HGB Conc 30.5 g/dL (30.0-36.0); Mean Corpuscular Volume 91.8 fl (80-94); Mean Platelet Volume 11.3 fL (7.4-10.4); Monocytes # 0.7 10^3/uL (0.2-0.9); Monocytes % 10.3 %; Neutrophils # 4.33 10^3/uL (1.8-7.7); Neutrophils % 68.7 %; Nucleated Red Blood Cells % 0 %; Platelet Count 235 10^3/cmm (130-400); Red Blood Count 3.04 10^6/uL (4.1-5.3); Red Cell Distribution Width 16.1 % (12.1-15.1); White Blood Count 6.3 10^3/uL (4.0-10.0)
[2022-07-22 03:28] VITALS: BP 122/69; PULSE 67; RESP 20; TEMP 36.6; O2SAT 94
[2022-07-22] MEDS: enoxaparin 100 mg/mL Syringe 90 MG SUBCUT (04:40)
[2022-07-22 05:24] VITALS: PULSE 68
[2022-07-22 07:18] VITALS: BP 102/62; PULSE 64; RESP 17; TEMP 37.4; O2SAT 96
[2022-07-22] MEDS: pantoprazole DR 40 mg Tablet PO (09:22)
[2022-07-22] MEDS: gabapentin 300 mg Capsule PO (09:22)
[2022-07-22] MEDS: tamsulosin 0.4 mg Capsule PO (09:22)
[2022-07-22] MEDS: folic acid 1 mg Tablet PO (09:22)
[2022-07-22] MEDS: sotalol 80 mg Tablet 20 MG PO (09:23)
[2022-07-22] MEDS: cyanocobalamin 1,000 mcg Tablet 1000 MCG PO (09:23)
--- NOTE | 2022-07-22 10:32 | PM.DCS ---
Discharge Providers Date of Admission: 07/19/22 15:57 Date of Discharge: July 22, 2022 Attending Provider at Admission: Aura Pablo MD Attending Provider at Discharge: Nancy Hoskins MD Primary Care Provider: FLORENCIA Larson Diagnoses at Discharge Discharge Diagnosis (1) BPH with obstruction/lower urinary tract symptoms: Status: Acute (2) Bladder cancer: Status: Acute Qualifiers: Bladder location: lateral wall Qualified Code(s): C67.2 - Malignant neoplasm of lateral wall of bladder Permanent problem details: Large papillary tumor right posterior lateral bladder wall resected 11/15/2019. 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 Helton next week for potentially starting chemotherapy recently got diagnosed with DVT and was put on Eliquis. In the ER he was diagnosed with acute pulmonary embolism without any signs of right heart strain. He was placed on heparin drip which was switched to therapeutic Lovenox because it was very hard to gain IV access. Please note, he was diagnosed with acute on chronic anemia however no active signs of GI bleed he remained hemodynamically stable. This most likely is related to iron deficiency anemia, received 1 unit PRBC and 2 bags of iron, patient is stating that he would like to discuss further options with oncologist and palliative team, at this point he is very weak does try to get up with assistance, I did try to tell him that at this point secondary to poor functional status he might not be an ideal candidate for chemotherapy, he has failed Eliquis he will be discharged on Lovenox therapeutic regimen secondary to underlying cancer. He is at risk of falls as well, patient and his sister is in agreement to try Lovenox for next couple of weeks and if they see further worsening of functional status they may discontinue using therapeutic Lovenox. Dr. Yanez was consulted for Bentley catheter placement it was very difficult for the nurses to place Bentley at the time of admission, I have not removed his Bentley catheter and asked patient to follow-up with Dr. Yanez outpatient. Palliative team has approached Mr. Matias's sister to offer their services. Physical Exam Narrative: Patient is fatigued and lethargic On room air today Clinically fluid overloaded Bilateral lower extremity edema Awake and alert No focal deficits Able to answer simple questions Anisocoria, right-sided cataract surgery history Shoulder girdle weakness Bilateral lower extremity swelling Abdomen soft Urinary Catheter Management: Bentley: Cath Placed During This Visit: yes Reason for Continuing Indwelling Catheter: Acute Urinary Retention or Obstruction Urinary Catheter Date of Insertion: 07/20/22 Discharge Data Studies Completed and Pending Completed Studies During Hospitalization Category Date Time Status CT head wo con* [id number] Stat Cat Scan 07/21/22 08:39 Completed CTA chest [CT angio chest PE protcl [id number]] Stat Cat Scan 07/19/22 13:22 Completed XR chest 1V portable [id number] Stat Exams 07/19/22 12:03 Completed CV. echo complete* [id number] Urgent Ultrasound 07/19/22 19:16 Completed Pending at discharge Category Date Time Status Blood Culture Stat Lab 07/19/22 07:40 Results CBC Auto Diff [Complete Blood Count w/Auto] Routine Lab 07/20/22 10:45 Uncollected Influenza A&B by IFA Routine Lab 07/19/22 19:18 Uncollected Platelet Count Q2D Lab 07/23/22 04:00 Ordered Urine Culture Stat Lab 07/19/22 11:10 Results Radiology Impressions Chest X-Ray 07/19/22 12:03 IMPRESSION: No acute findings. Chest CTA 07/19/22 13:22 IMPRESSION: Acute pulmonary embolism involving the left lower lobe segmental and multiple subsegmental pulmonary arteries. RV to LV ratio measures 0.8. Right upper lobe mass stable in appearance and size representing primary lung carcinoma. Other chronic findings as described above. ADDENDUM: 07/19/22 1535 THIS REPORT CONTAINS FINDINGS THAT MAY BE CRITICAL TO PATIENT CARE. The findings were verbally communicated via telephone conference with Erik Lemos at 3:33 PM CLIENT SERVICES REPRESENTATIVE on 07/19/2022. The findings were acknowledged and understood. Head CT 07/21/22 08:39 IMPRESSION: 1. No evidence of intracranial hemorrhage or mass effect. 2. Moderate small vessel changes. Moderate parenchymal volume loss worse in the frontal lobes. 3. Previously treated metastasis in the cerebellum better seen on the prior MRI with low-attenuation lesion in the LEFT cerebellar hemisphere similar in appearance. No significant mass effect. 4. No other significant findings. Laboratory Results WBC 6.3 10^3/uL (4.0-10.0) 07/22/22 01:50 RBC 3.04 10^6/uL (4.1-5.3) L 07/22/22 01:50 Hgb 8.5 g/dL (11.7-16.6) L 07/22/22 01:50 Hct 27.9 % (42.0-52.0) L 07/22/22 01:50 MCV 91.8 fl (80-94) 07/22/22 01:50 MCH 28.0 pg (28.0-34.0) 07/22/22 01:50 MCHC 30.5 g/dL (30.0-36.0) 07/22/22 01:50 RDW 16.1 % (12.1-15.1) H 07/22/22 01:50 Plt Count 235 10^3/cmm (130-400) 07/22/22 01:50 MPV 11.3 fL (7.4-10.4) H 07/22/22 01:50 Neut % (Auto) 68.7 % 07/22/22 01:50 Lymph % (Auto) 17.9 % 07/22/22 01:50 Daniels % (Auto) 10.3 % 07/22/22 01:50 Eos % (Auto) 2.1 % 07/22/22 01:50 Baso % (Auto) 0.5 % 07/22/22 01:50 Neut # (Auto) 4.33 10^3/uL (1.8-7.7) 07/22/22 01:50 Lymph # (Auto) 1.1 10^3/uL (0.8-4.8) 07/22/22 01:50 Daniels # (Auto) 0.7 10^3/uL (0.2-0.9) 07/22/22 01:50 Eos # (Auto) 0.1 10^3/uL (0.0-0.8) 07/22/22 01:50 Baso # (Auto) 0.0 10^3/uL (0.0-0.1) 07/22/22 01:50 Nucleated RBC % (auto) 0 % 07/22/22 01:50 Nucleated RBCs # 0.0 /100WBC 07/22/22 01:50 APTT 145.6 SECONDS (23.9-36.7) H 07/20/22 02:39 Sodium 139 mmol/L (136-145) 07/20/22 02:39 Potassium 3.7 mmol/L (3.5-5.1) 07/20/22 02:39 Chloride 101 mmol/L (98-107) 07/20/22 02:39 Carbon Dioxide 29 mmol/L (22-29) 07/20/22 02:39 Anion Gap 12.7 (5-19) 07/20/22 02:39 BUN 13 mg/dL (8-23) 07/20/22 02:39 Creatinine 1.1 mg/dL (0.7-1.2) 07/20/22 02:39 GFR Calculation Not Reportable 07/20/22 02:39 Glucose 93 mg/dL (65-115) 07/20/22 02:39 Calculated Osmolality 288 mOsm/kg (285-295) 07/20/22 02:39 Lactic Acid 0.8 mmol/L (0.5-2.2) 07/19/22 16:58 Calcium 8.2 mg/dL (8.5-10.5) L 07/20/22 02:39 Magnesium 1.9 mg/dL (1.7-2.3) 07/20/22 02:39 Iron 17 ug/dL (59-158) L 07/20/22 02:39 TIBC 125 mcg/dl 07/20/22 02:39 % Saturation 13.6 % (20-50) L 07/20/22 02:39 Unsat Iron Binding 108 ug/dL (112-347) L 07/20/22 02:39 Ferritin 2184 ng/mL (30-400) H 07/20/22 02:39 Total Bilirubin 1.7 mg/dL (0.15-1.2) H 07/20/22 02:39 AST 23 U/L (0-40) 07/20/22 02:39 ALT 9 U/L (0-41) 07/20/22 02:39 Alkaline Phosphatase 173 U/L (40-130) H 07/20/22 02:39 Troponin T Baseline 213 ng/L (0-15) H* 07/19/22 12:10 Troponin T 120 Minute 150.8 ng/L (0-15) H 07/19/22 14:25 Delta Troponin T -62.2 ABS# (0-10) L 07/19/22 14:25 Troponin T Hi Sens 6Hr 195.8 ng/L (0-15) H 07/19/22 18:08 Troponin T Hi Sens 6Hr Delta -17.2 ng/L (0-12) L 07/19/22 18:08 NT-Pro-B Natriuret Pep 2184 pg/mL (0-125) H 07/19/22 16:58 Total Protein 5.7 g/dL (6.6-8.7) L 07/20/22 02:39 Albumin 2.8 g/dL (3.5-5.2) L 07/20/22 02:39 Globulin 2.9 g/dL (1.3-4.6) 07/20/22 02:39 Vitamin B12 409 pg/mL (232-1245) 07/20/22 02:39 Procalcitonin 2.49 ng/mL (0-0.5) H 07/19/22 16:58 Urine Color Yellow (Yellow) 07/19/22 15:54 Urine Appearance Clear (CLEAR) 07/19/22 15:54 Urine pH 6 (5-7) 07/19/22 15:54 Ur Specific [place] 1.005 (1.005-1.030) 07/19/22 15:54 Urine Protein Neg (Negative) 07/19/22 15:54 Urine Glucose (UA) Norm (Normal) 07/19/22 15:54 Urine Ketones Negative (Negative) 07/19/22 15:54 Urine Blood 2+ (Negative) H 07/19/22 15:54 Urine Nitrate Negative (Negative) 07/19/22 15:54 Urine Bilirubin Neg (Negative) 07/19/22 15:54 Urine Urobilinogen 4 mg/dL (Negative) H 07/19/22 15:54 Ur Leukocyte Esterase Negative (Negative) 07/19/22 15:54 Urine RBC 0-4 /hpf (0-2) H 07/19/22 15:54 Urine WBC 0-4 /hpf (0-5) H 07/19/22 15:54 Ur Squamous Epith Cells Rare /hpf (0-5) 07/19/22 15:54 Amorphous Sediment Not Reportable 07/19/22 15:54 Urine Bacteria Trace /hpf (NONE) 07/19/22 15:54 Coronavirus 229E (PCR) Not detected (NOT DETECT) 07/19/22 20:20 Influenza Type A Ag negative (Negative) 07/19/22 12:23 Influenza Type B Ag negative (Negative) 07/19/22 12:23 SARS-CoV-2 (PCR) Not detected (NOT DETECT) 07/19/22 20:20 SARS-CoV-2 Ag (Rapid) negative (Negative) 07/19/22 12: Blood Type A Positive 07/20/22 07:40 Rho(D) Type Positive 07/20/22 07:40 Antibody Screen Negative 07/20/22 07:40 Crossmatch See Detail 07/20/22 07:40 Vitals Last Vital Signs Temp 99.3 F 07/22/22 07:18 Pulse 64 07/22/22 07:18 Resp 17 07/22/22 07:18 BP 102/62 07/22/22 07:18 Pulse Ox 96 07/22/22 07:18 O2 Del Method 07/21/22 16:00 O2 Flow Rate 2 07/20/22 04:00 Discharge Plan Discharge Patient Disposition: Hospice - Home Condition: Fair Prescriptions: New Lovenox 80 mg/0.8 mL syringe 90 mg SUBCUT Q12H 14 Days Qty: 25.2 1RF ferrous sulfate [Feosol] 325 mg (65 mg iron) tablet 325 mg PO DAILY Qty: 60 0RF Continued omeprazole 20 mg capsule,delayed release(DR/EC) 20 mg PO DAILY latanoprost [Xalatan] 0.005 % drops 1 drop ophthalmic (eye) BEDTIME Rx Instructions: both eyes gabapentin 600 mg tablet 300 mg PO TID albuterol sulfate 2.5 mg/0.5 mL solution for nebulization 2.5 mg inhalation Q6H PRN (Reason: Shortness Of Breath) Rx Instructions: for up to 3 doses tamsulosin [Flomax] 0.4 mg capsule 0.4 mg PO BID Qty: 180 3RF potassium chloride 20 mEq tablet,ER particles/crystals 20 meq PO DAILY PRN (Reason: Take with lasix) Qty: 90 3RF Rx Instructions: To be taken with Lasix hydrocodone-acetaminophen 7.5-325 mg tablet 1 tab PO Q6H PRN (Reason: pain) Qty: 10 0RF mirtazapine 15 mg tablet 15 mg PO BEDTIME Changed Lasix 40 mg tablet 20 mg PO DAILY Qty: 90 3RF sotalol 80 mg tablet 20 mg PO BID Qty: 60 0RF Discontinued lovastatin 20 mg tablet 20 mg PO BEDTIME amlodipine 5 mg tablet 5 mg PO BEDTIME Qty: 90 3RF Eliquis DVT-PE Treat 30D Start 5 mg (74 tabs) tablets,dose pack See Rx Instructions .ROUTE .COMPLEX Qty: 74 0RF Rx Instructions: orally per package directions Discharge Orders: Discharge Order (Routine); Ordered 07/22/22 Ordered By: Nancy Hoskins Referrals: [facility] [Outside] ([facility] ) Kenji Yanez MD [Physician] - 2 weeks (Dr. Yanez's office will call with a follow up appointment.If you have not heard from them by Wednesday...call the office at ) Lacey Gooden FNP [Primary Care Provider] - (You have a follow up appointment with FLORENCIA Trejo on 07/28/22 at 11:20am. Patient will need to fill out a release of information form before the appointment.Obtain this from their office.) Discharge Diet: Cardiac Discharge Activity: Increase activity as tolerated Patient Instructions: Enoxaparin (By injection) (Lovenox), Pulmonary Embolism (DC), Bentley Catheter Placement and Care (ED), Deep Vein Thrombosis (DC), Opioid Safety Discharge Attestations Time Spent in Discharge Care*: less than 30 min Status at Discharge: Cognitive status at discharge: cognitively intact, Behavioral status at discharge: cooperative, Quality Metrics Clinical Quality Measures [ No reported AMI, CVA or VTE this stay] Coding Level of Care Code Acute Chg FW DC note Diagnoses BPH with obstruction/lower urinary tract symptoms N40.1; N13.8 Bladder cancer C67.2 Bladder location: lateral wall Postoperative urinary retention N99.89; R33.8 Benign essential HTN I10 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
[2022-07-22 11:22] VITALS: BP 102/62; PULSE 64; RESP 17; TEMP 37.4; O2SAT 96
--- NOTE | 2022-07-22 12:15 | PC.SOCIAL ---
Pg 2 IMM Explained to pt's family Pg 2 IMM. No questions voiced. Provided pt a copy. Initialed, dated, & timed a copy & placed in chart.
--- NOTE | 2022-07-22 14:04 | PC.NURSE ---
discharge instructions given and explained.pt's cg's verb understanding of instructions.discharged via w/c to exit.cg to drive pt home.
== END 2022-07-22 14:00 | disposition hospice, home (50) | DRG 176 ==
LOC: ER 15:59 → CSU 16:12
PROVIDERS: Family Medicine; Admitting Provider Internal Medicine; Emergency Provider Emergency Medicine; PCP Nurse Practitioner Family; Visit Provider Internal Medicine
DX: I26.94 Multiple subsegmental thrombotic pulmonary emboli without acute cor pulmonale (principal); C34.11 Malignant neoplasm of upper lobe, right bronchus or lung; C79.31 Secondary malignant neoplasm of brain; N13.8 Other obstructive and reflux uropathy; R00.1 Bradycardia, unspecified; I95.9 Hypotension, unspecified; N40.1 Benign prostatic hyperplasia with lower urinary tract symptoms; R39.14 Feeling of incomplete bladder emptying; R33.8 Other retention of urine; R39.12 Poor urinary stream; C67.4 Malignant neoplasm of posterior wall of bladder; N99.114 Postprocedural urethral stricture, male, unspecified; Z95.828 Presence of other vascular implants and grafts; Z92.3 Personal history of irradiation; D50.0 Iron deficiency anemia secondary to blood loss (chronic); Z79.51 Long term (current) use of inhaled steroids; Z79.891 Long term (current) use of opiate analgesic; Z66 Do not resuscitate; M79.89 Other specified soft tissue disorders; E86.0 Dehydration; Z93.6 Other artificial openings of urinary tract status; Z87.891 Personal history of nicotine dependence; Z85.828 Personal history of other malignant neoplasm of skin; I10 Essential (primary) hypertension; I48.91 Unspecified atrial fibrillation; Z86.718 Personal history of other venous thrombosis and embolism
CPT/HCPCS: 36415; 70450; 71045; 71275; 80053; 81001; 82607; 82728; 83540; 83550; 83605; 83735; 83880; 84145; 84484; 85014; 85018; 85025; 85730; 86850; 86900; 86920; 87040; 87086; 87426; 87635; 87804; 93005; 93306; 96365; 96372; 96375; 97116; 97161; 97530; 99285; C9113; J1644; J1650; J1756; J2543; J7030; P9016; Q9967